=== PATIENT | male | born 1965 | race Caucasian/White ===

== ENCOUNTER 2024-07-06 11:44 | Inpatient (IN) | payer BC, MEDICAID ==
[~2024-07-06] VITALS: Ht 152.4 cm; Wt 82.0 kg
[2024-07-06] MEDS: furosemide 10 MG/1 ML 10ml inj IV ONE (12:12)
[2024-07-06 12:19] VITALS: PULSE 101; RESP 14; O2SAT 97
[2024-07-06 12:25] LABS: BASOPHILS # (AUTO) 0.1 X10'3 (0-0.2); HEMOGLOBIN 11.7 g/dl (14.0-17.9); LYMPHOCYTES # (AUTO) 1.3 X10'3 (1.1-4.8); NEUTROPHILS # (AUTO) 12.3 X10'3 (1.8-7.7)
[2024-07-06 12:27] LABS: BASOPHILS % (AUTO) 0.3 % (0-1); EOSINOPHILS % (AUTO) 0.2 % (0-6); HEMATOCRIT 40.4 % (42.0-52.0); LYMPHOCYTES % (AUTO) 8.7 % (21-51); MEAN CORPUSCULAR HEMOGLOBIN 22.3 PG (27.0-31.0); MEAN CORPUSCULAR HGB CONC 29.1 g/dL (33.0-36.5); MEAN CORPUSCULAR VOLUME 76.7 FL (78-98); MEAN PLATELET VOLUME 8.6 FL (7.4-10.4); MONOCYTES # (AUTO) 1.7 X10'3 (0-0.9); MONOCYTES % (AUTO) 10.8 % (2-12); PLATELET COUNT 444 X10'3 (140-440); RED BLOOD COUNT 5.27 X10'6 (4.70-6.10); RED CELL DISTRIBUTION WIDTH 22.7 % (11.5-14.5); WHITE BLOOD COUNT 15.4 X10'3 (4.5-11.0)
[2024-07-06 12:40] LABS: ALANINE AMINOTRANSFERASE 468 U/L (12-78); ALBUMIN 2.9 G/DL (3.4-5.0); ALKALINE PHOSPHATASE 158 IU/L (46-116); ANION GAP 14 (8-16); ASPARTATE AMINO TRANSFERASE 648 U/L (10-37); BILIRUBIN,TOTAL 5.4 MG/DL (0.1-1.0); BLOOD UREA NITROGEN 48 MG/DL (7-18); BUN/CREATININE RATIO 17.5 (10.0-20.0); CALCIUM 8.3 MG/DL (8.5-10.1); CHLORIDE 98 MMOL/L (99-107); CREATININE 2.75 MG/DL (0.60-1.10); GLUCOSE 122 MG/DL (70-104); SODIUM 140 MMOL/L (135-145); TOTAL CARBON DIOXIDE 28.2 MMOL/L (24-32); eCRCL 29 ML/MIN; eGFR 24 ML/MIN
[2024-07-06 12:50] LABS: BILIRUBIN,DIRECT 3.8 MG/DL (0-0.3); PRO BRAIN NATRIURETIC PEPTIDE 5670 PG/ML (0-125); THYROID STIMULATING HORMONE 3.26 ulU/ml (0.34-4.50)
[2024-07-06 12:51] LABS: ALBUMIN/GLOBULIN RATIO 0.6 (1.1-1.5); TOTAL PROTEIN 7.9 G/DL (6.4-8.2)
[2024-07-06 12:53] LABS: ANISOCYTOSIS 3+; HYPOCHROMASIA 1+; MICROCYTOSIS 1+; NUCLEATED RED BLOOD CELLS 1 /100WBC (0-0); PLATELET ESTIMATE INCREASED; ROULEAUX 1+; TOTAL CELLS COUNTED 100
[2024-07-06 12:54] LABS: BURR CELLS 1+; ELLIPTOCYTES FEW; POLYCHROMASIA 1+; TARGET CELLS 1+
[2024-07-06] MEDS: LIDOcaine 1% W/epiNEPHrine 1:100,000 20ml vial SQ ONE (13:05)
[2024-07-06 13:26] LABS: INR 1.7 INR; PROTHROMBIN TIME 17.2 SECONDS (9.0-12.0)
[2024-07-06] MEDS: CefTRIAXone 2gm/D5W 50ml BAG 50 ML IV ONE (14:03)
[2024-07-06 14:36] LABS: BFSOURCE OTHER
[2024-07-06] MEDS: azithromycin/NS 500mg/250ml 250 ML IV SCH (14:37)
[2024-07-06 14:59] LABS: AMYLASE,BODY FLUID 12 U/L; GLUCOSE,BODY FLUID 141 MG/DL; LDH,BODY FLUID 144 U/L; TOTAL PROTEIN,BODY FLUID 2.7 G/DL
[2024-07-06 15:14] LABS: LYMPHOCYTES,BODY FLUID 15 %; MONOCYTES,BODY FLUID 19 %; NEUTROPHILS,BODY FLUID 66 %
[2024-07-06 15:15] LABS: BF MESOTHELIAL CELLS OCCASIONAL; BF RBC COUNT 432 /CU MM; BF WBC COUNT 390 /CU MM (0-1000); BFAPPEAR HAZY; BFCOLOR YELLOW; BFSOURCE OTHER; BFVOLUME 8 ML
[2024-07-06 15:35] VITALS: PULSE 97; RESP 21; O2SAT 94
[2024-07-06] MEDS ORDERED: magnesium Cl slow-release 64mg tablet PO PRN (16:05)
[2024-07-06] MEDS ORDERED: mag hydrox/Alum hydrox/simeth 30ml oral suspension PO PRN (16:05)
[2024-07-06] MEDS ORDERED: potassium Cl 20 mEq SR tablet PO PRN ×2 (16:05)
[2024-07-06] MEDS ORDERED: magnesium hydroxide 30ml (MOM) UD suspension PO PRN (16:05)
[2024-07-06] MEDS ORDERED: [UNRECOGNIZED DRUG - REMARK] (16:29)
[2024-07-06] MEDS: hyDRALAzine 10mg tablet PO SCH (17:19)
[2024-07-06] MEDS: losartan 50mg tablet PO SCH (17:23)
[2024-07-06] MEDS ORDERED: hyDRALAzine 10mg tablet PO PRN (17:50)
[2024-07-06 19:21] VITALS: PULSE 97; RESP 30; O2SAT 89
[2024-07-06] MEDS: ipratropium/albuterol 3ml nebule NEB SCH (19:30)
[2024-07-06 19:32] VITALS: PULSE 94; RESP 20; O2SAT 88
[2024-07-06 19:39] VITALS: PULSE 96; RESP 19
[2024-07-06] MEDS: heparin, porcine 5000 units/ml vial SQ SCH (20:00)
[2024-07-06] MEDS ORDERED: FURO20TA4 PO (20:02)
[2024-07-06] MEDS ORDERED: LOSA100T58 PO (20:03)
[2024-07-06] MEDS: methylPREDNISolone sod succ 125mg/2ml vial IV SCH (20:51)
[2024-07-06] MEDS: furosemide 40mg/4ml inj IV SCH (20:52)
[2024-07-06] MEDS: acetaminophen 325mg tablet PO PRN (20:53)
[2024-07-06 22:51] VITALS: BP 146/83; RESP 20; TEMP 97.3; O2SAT 82
[2024-07-06 23:24] LABS: ABG BASE EXCESS 2.8 mmol/L (-2.0-3.0); ABG HCO3 27.7 mmol/L (21.0-28.0); ABG PCO2 (T) 42.4 mmHg (35.0-48.0); ABG PO2 (T) 48.6 mmHg (83.0-108.0); ALLEN'S TEST POSITIVE; FCOHb 0.7 % (0.5-1.5); FHHb 17.8 % (0.0-5.0); FLOW 40 L/min; FMetHb 0.3 % (0.0-1.5); FO2Hb 81.2 % (94.0-98.0); MODE HIGH FLOW; PATIENT TEMPERATURE 36.3; TOTAL HEMOGLOBIN 12.2 G/dl (13.5-17.5)
[2024-07-06] MEDS: furosemide 40mg/4ml inj IV ONE (23:29)
[2024-07-06] MEDS ORDERED: POTASSIUM CHLORIDE 20 MEQ/15 ML oral solution PO PRN (23:30)
[2024-07-06] MEDS: POTASSIUM CHLORIDE 20 MEQ/15 ML oral solution PO PRN (23:48)
[2024-07-07] VITALS (47 sets, daily range): BP systolic 96–137; BP diastolic 47–73; PULSE 71–114; RESP 12–25; O2SAT 80–100
[2024-07-07 01:26] LABS: ABG BASE EXCESS 3.8 mmol/L (-2.0-3.0); ABG HCO3 29.8 mmol/L (21.0-28.0); ABG OXYGEN SATURATION 86.9 % (94.0-98.0); ABG PCO2 (T) 48.2 mmHg (35.0-48.0); ABG PH (T) 7.403 (7.350-7.450); ALLEN'S TEST Modified; FCOHb 0.3 % (0.5-1.5); FMetHb 0.3 % (0.0-1.5); FO2Hb 86.4 % (94.0-98.0); MODE MASK - BIPAP; PATIENT TEMPERATURE 35.6; RESPIRATORY RATE 8 b/min; TOTAL HEMOGLOBIN 12.3 G/dl (13.5-17.5)
[2024-07-07] MEDS ORDERED: magnesium hydroxide 30ml (MOM) UD suspension PO PRN (02:35)
[2024-07-07] MEDS: propofol 1000mg/100ml bottle 100 ML IV ONE (02:55)
[2024-07-07] MEDS: albumin (human) 25% 100 ML IV solution IV ONE (03:00)
[2024-07-07] MEDS: propofol 1000mg/100ml bottle 100 ML IV SCH ×3 (03:00→18:50)
[2024-07-07] MEDS: albumin (human) 25% 100ml IV 100 ML in normal saline 500ml IV soln 400 ML IV ONE (04:29)
[2024-07-07] MEDS: albumin (Human) 5% 250ml 250 ML IV ONE ×2 (05:09→06:06)
[2024-07-07 05:22] LABS: ABG BASE EXCESS 4.1 mmol/L (-2.0-3.0); ABG HCO3 28.4 mmol/L (21.0-28.0); ABG OXYGEN SATURATION 89.4 % (94.0-98.0); ABG PCO2 (T) 40.7 mmHg (35.0-48.0); ABG PO2 (T) 58.2 mmHg (83.0-108.0); ALLEN'S TEST Modified; FCOHb 0.7 % (0.5-1.5); FHHb 10.5 % (0.0-5.0); FMetHb 0.3 % (0.0-1.5); FO2Hb 88.5 % (94.0-98.0); MODE CMV PRVC IT 0.8; PATIENT TEMPERATURE 36.6; PEEP 14 cm H2O; RESPIRATORY RATE 20 b/min; TIDAL VOLUME 450 mL; TOTAL HEMOGLOBIN 11.5 G/dl (13.5-17.5)
[2024-07-07 06:09] LABS: BASOPHILS % (AUTO) 0.1 % (0-1); EOSINOPHILS % (AUTO) 0 % (0-6); LYMPHOCYTES # (AUTO) 0.7 X10'3 (1.1-4.8); MEAN CORPUSCULAR HGB CONC 28.5 g/dL (33.0-36.5); MONOCYTES # (AUTO) 0.4 X10'3 (0-0.9); NEUTROPHILS # (AUTO) 10.9 X10'3 (1.8-7.7)
[2024-07-07 06:10] LABS: HEMATOCRIT 35.2 % (42.0-52.0); LYMPHOCYTES % (AUTO) 5.9 % (21-51); MEAN CORPUSCULAR HEMOGLOBIN 21.9 PG (27.0-31.0); MEAN CORPUSCULAR VOLUME 76.6 FL (78-98); MEAN PLATELET VOLUME 8.8 FL (7.4-10.4); MONOCYTES % (AUTO) 3.2 % (2-12); NEUTROPHILS % (AUTO) 90.8 % (42-75); PLATELET COUNT 317 X10'3 (140-440); RED BLOOD COUNT 4.59 X10'6 (4.70-6.10); RED CELL DISTRIBUTION WIDTH 23.1 % (11.5-14.5)
[2024-07-07 06:19] LABS: D-DIMER 3.29 MG/L FEU (0-0.50); INR 1.6 INR; PROTHROMBIN TIME 16.1 SECONDS (9.0-12.0)
[2024-07-07 06:33] LABS: ALANINE AMINOTRANSFERASE 353 U/L (12-78); ALBUMIN 2.3 G/DL (3.4-5.0); ALBUMIN/GLOBULIN RATIO 0.5 (1.1-1.5); ALKALINE PHOSPHATASE 121 IU/L (46-116); ANION GAP 7 (8-16); ASPARTATE AMINO TRANSFERASE 327 U/L (10-37); BILIRUBIN,TOTAL 3.7 MG/DL (0.1-1.0); BLOOD UREA NITROGEN 52 MG/DL (7-18); BUN/CREATININE RATIO 18.6 (10.0-20.0); CALCIUM 7.8 MG/DL (8.5-10.1); CHLORIDE 98 MMOL/L (99-107); GLUCOSE 149 MG/DL (70-104); MAGNESIUM 1.8 MG/DL (1.5-2.4); PHOSPHORUS 4.6 MG/DL (2.3-4.5); POTASSIUM 3.1 MMOL/L (3.5-5.1); SODIUM 138 MMOL/L (135-145); TOTAL CARBON DIOXIDE 32.6 MMOL/L (24-32); TOTAL PROTEIN 6.9 G/DL (6.4-8.2); TRIGLYCERIDES 59 MG/DL (20-135); eCRCL 28 ML/MIN; eGFR 23 ML/MIN
[2024-07-07 06:53] LABS: ANISOCYTOSIS 3+; MICROCYTOSIS 1+; NUCLEATED RED BLOOD CELLS 4 /100WBC (0-0); PLATELET ESTIMATE NORMAL; TOTAL CELLS COUNTED 100
[2024-07-07] MEDS: budesonide 0.5mg/2ml UD nebule IH SCH (07:25)
[2024-07-07] MEDS: piperacillin/tazo 4.5gm/100ml 100 ML IV SCH (07:26)
[2024-07-07] MEDS: VANCOMYCIN/H2O 1.5g/300mL PB 300 ML IV ONE (07:26)
[2024-07-07] MEDS ORDERED: pantoprazole 40mg Tablet.DR PO SCH (07:30)
[2024-07-07] MEDS: potassium Cl 40MEQ/1/2NS 520ml 520 ML IV PRN (07:59)
[2024-07-07] MEDS ORDERED: CefTRIAXone 2gm/D5W 50ml BAG 50 ML IV SCH (08:00)
[2024-07-07] MEDS ORDERED: isosorbide mononitrate 30mg tab.SR.24H PO SCH (08:00)
[2024-07-07] MEDS ORDERED: rocuronium 10mg/ml inj IV ONE (08:00)
[2024-07-07 08:33] LABS: URINE AMPHETAMINE SCREEN POSITIVE (Neg); URINE BARBITUATE SCREEN NEGATIVE (Neg); URINE BENZODIAZEPINES SCREEN NEGATIVE (Neg); URINE CANNABINOID SCREEN NEGATIVE (Neg); URINE COCAINE SCREEN NEGATIVE (Neg); URINE METHADONE SCREEN NEGATIVE (Neg); URINE OPIATE SCREEN NEGATIVE (Neg); URINE PHENCYCLIDINE SCREEN NEGATIVE (Neg)
[2024-07-07] MEDS: spironolactone 25 MG tablet PO SCH (09:50)
[2024-07-07] MEDS: pantoprazole 40 MG vial IV SCH (09:50)
[2024-07-07] MEDS: lactulose 20gm/30ml cup PO SCH (09:50)
[2024-07-07] MEDS: azithromycin 250mg tablet PO SCH (09:51)
[2024-07-07] MEDS: magnesium sulf-water 4G/100mL 100 ML IV PRN (09:52)
[2024-07-07] MEDS: normal saline 1000ml 1,000 ML IV SCH (10:00)
[2024-07-07 10:16] LABS: BILIRUBIN,URINE NEGATIVE (Neg); CLARITY,URINE CLEAR (Clear); COLOR,URINE YELLOW (Yellow); GLUCOSE, URINE NEGATIVE (Neg); KETONES,URINE NEGATIVE (Neg); LEUKOCYTE ESTERASE ,URINE NEGATIVE (Neg); NITRITES, URINE NEGATIVE (Neg); OCCULT BLOOD,URINE NEGATIVE (Neg); PH,URINE 5.5 (4.8-8.0); PROTEIN,URINE NEGATIVE (Neg)
[2024-07-07 10:20] LABS: UA COLLECTION TYPE FOLEY CATH
[2024-07-07] MEDS: fentaNYL/PF 50MCG/1 ML 2ML syringe ONE (11:06)
[2024-07-07] MEDS: fentaNYL/PF 50MCG/1 ML 2ML syringe IV ONE ×2 (11:10→11:35)
[2024-07-07] MEDS: FENTANYL-0.9 % NACL/PF 100 ML IV SCH ×2 (12:18→18:50)
[2024-07-07 17:32] LABS: ABG BASE EXCESS 1.9 mmol/L (-2.0-3.0); ABG HCO3 27.7 mmol/L (21.0-28.0); ABG OXYGEN SATURATION 85.3 % (94.0-98.0); ABG PH (T) 7.391 (7.350-7.450); ABG PO2 (T) 52.1 mmHg (83.0-108.0); ALLEN'S TEST POSITIVE; FCOHb 0.6 % (0.5-1.5); FHHb 14.6 % (0.0-5.0); FMetHb 0.3 % (0.0-1.5); FO2Hb 84.5 % (94.0-98.0); MODE VENT - AC; PATIENT TEMPERATURE 35.8; PEEP 14 cm H2O; RESPIRATORY RATE 20 b/min; TIDAL VOLUME 450 mL
[2024-07-07 18:06] LABS: MAGNESIUM 2.6 MG/DL (1.5-2.4)
[2024-07-07 18:08] LABS: POTASSIUM 2.6 MMOL/L (3.5-5.1)
[2024-07-07] MEDS ORDERED: NORepinephrine 32mg/250mL bag 250 ML IV SCH (18:20)
[2024-07-07] MEDS: NORepinephrine 8mg/ 250ml NS 250 ML IV SCH (18:35)
[2024-07-07] MEDS: furosemide 10 MG/1 ML 10ml inj IV ONE (18:51)
[2024-07-07] MEDS: potassium Cl 40MEQ/270ML bag 270 ML IV PRN (18:53)
[2024-07-07] MEDS: furosemide inj 1,000 MG in normal saline 250ml IV soln 150 ML IV SCH (19:00)
[2024-07-07] MEDS ORDERED: vancomycin/NS 500MG ADD-VANT 100 ML IV ONE (19:00)
[2024-07-07 19:25] LABS: ABG BASE EXCESS 1.6 mmol/L (-2.0-3.0); ABG HCO3 27.9 mmol/L (21.0-28.0); ABG OXYGEN SATURATION 97.8 % (94.0-98.0); ABG PCO2 (T) 50.1 mmHg (35.0-48.0); ABG PH (T) 7.359 (7.350-7.450); ABG PO2 (T) 101.1 mmHg (83.0-108.0); ALLEN'S TEST POSITIVE; FCOHb 0.4 % (0.5-1.5); FHHb 2.2 % (0.0-5.0); FMetHb 0.3 % (0.0-1.5); FO2Hb 97.1 % (94.0-98.0); MODE VENT - APRV; TOTAL HEMOGLOBIN 10.8 G/dl (13.5-17.5)
[2024-07-07] MEDS: VANCOMYCIN 500MG/WATER FOR INJ (PEG) PREMIX 100 ML IV SCH (20:06)
[2024-07-07 22:15] LABS: ALBUMIN 2.7 G/DL (3.4-5.0); ANION GAP 9 (8-16); BLOOD UREA NITROGEN 57 MG/DL (7-18); BUN/CREATININE RATIO 18.4 (10.0-20.0); CALCIUM 7.8 MG/DL (8.5-10.1); CHLORIDE 102 MMOL/L (99-107); CREATININE 3.09 MG/DL (0.60-1.10); GLUCOSE 178 MG/DL (70-104); POTASSIUM 3.2 MMOL/L (3.5-5.1); SODIUM 142 MMOL/L (135-145); TOTAL CARBON DIOXIDE 31.4 MMOL/L (24-32); eCRCL 18 ML/MIN; eGFR 21 ML/MIN
[2024-07-08] VITALS (48 sets, daily range): BP systolic 96–131; BP diastolic 41–89; PULSE 52–98; RESP 6–17; O2SAT 90–100
[2024-07-08 02:49] LABS: ABG BASE EXCESS 0.5 mmol/L (-2.0-3.0); ABG HCO3 28.5 mmol/L (21.0-28.0); ABG OXYGEN SATURATION 99.7 % (94.0-98.0); ABG PCO2 (T) 62.1 mmHg (35.0-48.0); ABG PH (T) 7.276 (7.350-7.450); ABG PO2 (T) 292.4 mmHg (83.0-108.0); ALLEN'S TEST POSITIVE; FCOHb 0.7 % (0.5-1.5); FHHb 0.3 % (0.0-5.0); FMetHb 0.1 % (0.0-1.5); FO2Hb 98.9 % (94.0-98.0); MODE VENT - APRV; PATIENT TEMPERATURE 36.4; TOTAL HEMOGLOBIN 11.1 G/dl (13.5-17.5)
[2024-07-08 03:45] LABS: BASOPHILS % (AUTO) 0.1 % (0-1); EOSINOPHILS % (AUTO) 0 % (0-6); LYMPHOCYTES # (AUTO) 0.5 X10'3 (1.1-4.8); MEAN PLATELET VOLUME 8.8 FL (7.4-10.4); MONOCYTES # (AUTO) 0.5 X10'3 (0-0.9); NEUTROPHILS % (AUTO) 94.2 % (42-75)
[2024-07-08 03:53] LABS: INR 1.3 INR; PROTHROMBIN TIME 13.2 SECONDS (9.0-12.0)
[2024-07-08 03:55] LABS: ALANINE AMINOTRANSFERASE 236 U/L (12-78); ALBUMIN 2.8 G/DL (3.4-5.0); ALBUMIN/GLOBULIN RATIO 0.7 (1.1-1.5); ALKALINE PHOSPHATASE 98 IU/L (46-116); ANION GAP 9 (8-16); ASPARTATE AMINO TRANSFERASE 156 U/L (10-37); BILIRUBIN,TOTAL 2.6 MG/DL (0.1-1.0); BLOOD UREA NITROGEN 60 MG/DL (7-18); BUN/CREATININE RATIO 16.7 (10.0-20.0); CALCIUM 7.7 MG/DL (8.5-10.1); CHLORIDE 100 MMOL/L (99-107); CREATININE 3.59 MG/DL (0.60-1.10); GLUCOSE 210 MG/DL (70-104); MAGNESIUM 2.7 MG/DL (1.5-2.4); PHOSPHORUS 6.7 MG/DL (2.3-4.5); POTASSIUM 3.7 MMOL/L (3.5-5.1); SODIUM 139 MMOL/L (135-145); TOTAL PROTEIN 6.6 G/DL (6.4-8.2); TRIGLYCERIDES 87 MG/DL (20-135); eCRCL 15 ML/MIN; eGFR 17 ML/MIN
[2024-07-08 03:56] LABS: HEMATOCRIT 29.7 % (42.0-52.0); HEMOGLOBIN 9.4 g/dl (14.0-17.9); RED BLOOD COUNT 4.02 X10'6 (4.70-6.10); WHITE BLOOD COUNT 18.4 X10'3 (4.5-11.0)
[2024-07-08 03:57] LABS: LYMPHOCYTES % (AUTO) 2.8 % (21-51); MEAN CORPUSCULAR HEMOGLOBIN 23.4 PG (27.0-31.0); MEAN CORPUSCULAR HGB CONC 31.7 g/dL (33.0-36.5); MEAN CORPUSCULAR VOLUME 73.9 FL (78-98); MONOCYTES % (AUTO) 2.9 % (2-12); NEUTROPHILS # (AUTO) 17.3 X10'3 (1.8-7.7); PLATELET COUNT 333 X10'3 (140-440); RED CELL DISTRIBUTION WIDTH 21.9 % (11.5-14.5)
[2024-07-08 04:52] LABS: ABG BASE EXCESS -0.2 mmol/L (-2.0-3.0); ABG HCO3 23.7 mmol/L (21.0-28.0); ABG OXYGEN SATURATION 99.9 % (94.0-98.0); ABG PCO2 (T) 35.4 mmHg (35.0-48.0); ABG PH (T) 7.443 (7.350-7.450); ABG PO2 (T) 221.8 mmHg (83.0-108.0); ALLEN'S TEST POSITIVE; FCOHb 0.4 % (0.5-1.5); FHHb 0.1 % (0.0-5.0); FMetHb 0.3 % (0.0-1.5); FO2Hb 99.2 % (94.0-98.0); MODE VENT - APRV; PATIENT TEMPERATURE 36.6; TOTAL HEMOGLOBIN 10.6 G/dl (13.5-17.5)
[2024-07-08] MEDS: furosemide inj 1,000 MG in normal saline 250ml IV soln 150 ML IV SCH ×2 (09:23→17:49)
[2024-07-08] MEDS: NORepinephrine 8mg/ 250ml NS 250 ML IV SCH (09:25)
[2024-07-08] MEDS ORDERED: Dextrose 10%-water IV solution 1,000 ML IV SCH (10:20)
[2024-07-08] MEDS ORDERED: dextrose 50%-water 50ml dispensing syringe IV PRN (10:20)
[2024-07-08 12:02] LABS: ALBUMIN 2.6 G/DL (3.4-5.0); ANION GAP 12 (8-16); BLOOD UREA NITROGEN 70 MG/DL (7-18); BUN/CREATININE RATIO 19.2 (10.0-20.0); CALCIUM 7.9 MG/DL (8.5-10.1); CHLORIDE 102 MMOL/L (99-107); CREATININE 3.65 MG/DL (0.60-1.10); GLUCOSE 206 MG/DL (70-104); SODIUM 143 MMOL/L (135-145); TOTAL CARBON DIOXIDE 28.9 MMOL/L (24-32); eCRCL 15 ML/MIN; eGFR 17 ML/MIN
[2024-07-08 12:08] LABS: POTASSIUM 2.8 MMOL/L (3.5-5.1)
[2024-07-08] MEDS: mineral oil/petrolatum ophthal oint EACHEYE SCH (14:43)
[2024-07-08] MEDS: furosemide inj 100 MG in normal saline 100ml IV soln 90 ML IV SCH (14:47)
[2024-07-08] MEDS: insulin regular, human U-100 10ml vial - multi-dose SQ SCH (16:06)
[2024-07-08 16:29] LABS: ALBUMIN 2.7 G/DL (3.4-5.0); ANION GAP 9 (8-16); BLOOD UREA NITROGEN 76 MG/DL (7-18); BUN/CREATININE RATIO 19.9 (10.0-20.0); CALCIUM 7.6 MG/DL (8.5-10.1); CHLORIDE 102 MMOL/L (99-107); CREATININE 3.81 MG/DL (0.60-1.10); GLUCOSE 186 MG/DL (70-104); POTASSIUM 3.6 MMOL/L (3.5-5.1); SODIUM 143 MMOL/L (135-145); TOTAL CARBON DIOXIDE 32.1 MMOL/L (24-32); eCRCL 15 ML/MIN; eGFR 16 ML/MIN
[2024-07-08] MEDS ORDERED: furosemide inj 100 MG in normal saline 100ml IV soln 90 ML IV SCH (19:00)
[2024-07-08] MEDS ORDERED: VANCOMYCIN LEVEL IV ONE (19:30)
[2024-07-08 22:33] LABS: ALBUMIN 2.6 G/DL (3.4-5.0); ANION GAP 10 (8-16); BLOOD UREA NITROGEN 79 MG/DL (7-18); BUN/CREATININE RATIO 20.6 (10.0-20.0); CALCIUM 7.8 MG/DL (8.5-10.1); CHLORIDE 102 MMOL/L (99-107); CREATININE 3.84 MG/DL (0.60-1.10); GLUCOSE 184 MG/DL (70-104); POTASSIUM 3.2 MMOL/L (3.5-5.1); SODIUM 143 MMOL/L (135-145); TOTAL CARBON DIOXIDE 31.3 MMOL/L (24-32); eCRCL 14 ML/MIN; eGFR 16 ML/MIN
[2024-07-09] VITALS (50 sets, daily range): BP systolic 14–140; BP diastolic 47–83; PULSE 73–100; RESP 14–23; TEMP 98.9; O2SAT 93–100
[2024-07-09] MEDS: VANCOMYCIN LEVEL IV SCH (03:00)
[2024-07-09 03:46] LABS: ABG BASE EXCESS 2.6 mmol/L (-2.0-3.0); ABG HCO3 27.5 mmol/L (21.0-28.0); ABG OXYGEN SATURATION 96.2 % (94.0-98.0); ABG PCO2 (T) 42.6 mmHg (35.0-48.0); ABG PH (T) 7.425 (7.350-7.450); ABG PO2 (T) 78.9 mmHg (83.0-108.0); ALLEN'S TEST POSITIVE; FCOHb 0.6 % (0.5-1.5); FHHb 3.8 % (0.0-5.0); FMetHb 0.3 % (0.0-1.5); FO2Hb 95.3 % (94.0-98.0); MODE APRV; PATIENT TEMPERATURE 36.3; TOTAL HEMOGLOBIN 10.3 G/dl (13.5-17.5)
[2024-07-09 04:29] LABS: INR 1.2 INR; PROTHROMBIN TIME 12.7 SECONDS (9.0-12.0)
[2024-07-09 04:33] LABS: MAGNESIUM 2.6 MG/DL (1.5-2.4); PHOSPHORUS 4.6 MG/DL (2.3-4.5); PREALBUMIN 9.2 MG/DL (19-36); VANCOMYCIN,RANDOM 24.8 ug/mL (20.0-30.0)
[2024-07-09 04:34] LABS: BASOPHILS % (AUTO) 0.1 % (0-1); EOSINOPHILS % (AUTO) 0 % (0-6); HEMATOCRIT 29.7 % (42.0-52.0); LYMPHOCYTES # (AUTO) 0.4 X10'3 (1.1-4.8); LYMPHOCYTES % (AUTO) 2.4 % (21-51); MEAN PLATELET VOLUME 8.6 FL (7.4-10.4); RED BLOOD COUNT 3.97 X10'6 (4.70-6.10)
[2024-07-09 04:36] LABS: HEMOGLOBIN 8.9 g/dl (14.0-17.9); MEAN CORPUSCULAR HEMOGLOBIN 22.5 PG (27.0-31.0); MONOCYTES # (AUTO) 0.6 X10'3 (0-0.9); MONOCYTES % (AUTO) 3.6 % (2-12); NEUTROPHILS # (AUTO) 15.8 X10'3 (1.8-7.7); NEUTROPHILS % (AUTO) 93.9 % (42-75); PLATELET COUNT 267 X10'3 (140-440); RED CELL DISTRIBUTION WIDTH 23.1 % (11.5-14.5); WHITE BLOOD COUNT 16.8 X10'3 (4.5-11.0)
[2024-07-09 06:06] LABS: ALANINE AMINOTRANSFERASE 180 U/L (12-78); ALBUMIN 2.4 G/DL (3.4-5.0); ALBUMIN/GLOBULIN RATIO 0.7 (1.1-1.5); ALKALINE PHOSPHATASE 80 IU/L (46-116); ANION GAP 9 (8-16); ASPARTATE AMINO TRANSFERASE 86 U/L (10-37); BILIRUBIN,TOTAL 1.6 MG/DL (0.1-1.0); BLOOD UREA NITROGEN 83 MG/DL (7-18); BUN/CREATININE RATIO 21.2 (10.0-20.0); CALCIUM 7.7 MG/DL (8.5-10.1); CHLORIDE 104 MMOL/L (99-107); CREATININE 3.92 MG/DL (0.60-1.10); GLUCOSE 179 MG/DL (70-104); POTASSIUM 3.5 MMOL/L (3.5-5.1); SODIUM 144 MMOL/L (135-145); TOTAL CARBON DIOXIDE 31.2 MMOL/L (24-32); eCRCL 14 ML/MIN; eGFR 16 ML/MIN
[2024-07-09] MEDS ORDERED: rocuronium 10mg/ml inj IV ONE (08:00)
[2024-07-09] MEDS ORDERED: VANCOMYCIN 1GM 200ML H20 (PEG) 200 ML IV PRN (08:00)
[2024-07-09 10:13] LABS: ALBUMIN 2.4 G/DL (3.4-5.0); ANION GAP 13 (8-16); BLOOD UREA NITROGEN 87 MG/DL (7-18); CHLORIDE 105 MMOL/L (99-107); CREATININE 4.15 MG/DL (0.60-1.10); GLUCOSE 202 MG/DL (70-104); POTASSIUM 3.5 MMOL/L (3.5-5.1); SODIUM 146 MMOL/L (135-145); TOTAL CARBON DIOXIDE 28.3 MMOL/L (24-32); eCRCL 13 ML/MIN; eGFR 15 ML/MIN
[2024-07-09] MEDS ORDERED: BICARB DIALYSIS 4K/3 Ca2+sol 5,000 ML HE SCH (11:20)
[2024-07-09] MEDS ORDERED: calcium chloride inj. 1,000 MG in normal saline 100ml IV soln 100 ML IV PRN ×2 (11:20→16:50)
[2024-07-09] MEDS ORDERED: magnesium sulf-water 4G/100mL 100 ML IV PRN (11:20)
[2024-07-09] MEDS ORDERED: sodium phosphate inj. 30 MMOL in dextrose 5%-water 250 ML IV PRN (11:20)
[2024-07-09] MEDS: Duosol 4K/3 Ca (w/calcium) 5,000 ML HE SCH (13:31)
[2024-07-09 15:42] LABS: ALBUMIN 2.5 G/DL (3.4-5.0); ANION GAP 9 (8-16); BLOOD UREA NITROGEN 85 MG/DL (7-18); BUN/CREATININE RATIO 21.6 (10.0-20.0); CHLORIDE 104 MMOL/L (99-107); CREATININE 3.94 MG/DL (0.60-1.10); GLUCOSE 197 MG/DL (70-104); MAGNESIUM 2.6 MG/DL (1.5-2.4); PHOSPHORUS 5.3 MG/DL (2.3-4.5); POTASSIUM 3.9 MMOL/L (3.5-5.1); SODIUM 143 MMOL/L (135-145); TOTAL CARBON DIOXIDE 30.1 MMOL/L (24-32); eCRCL 14 ML/MIN; eGFR 16 ML/MIN
[2024-07-09 15:46] LABS: BASOPHILS % (AUTO) 0.2 % (0-1); EOSINOPHILS % (AUTO) 0 % (0-6); LYMPHOCYTES # (AUTO) 0.5 X10'3 (1.1-4.8); NEUTROPHILS # (AUTO) 15.7 X10'3 (1.8-7.7); WHITE BLOOD COUNT 16.6 X10'3 (4.5-11.0)
[2024-07-09 15:47] LABS: MEAN PLATELET VOLUME 8.5 FL (7.4-10.4); MONOCYTES # (AUTO) 0.5 X10'3 (0-0.9); MONOCYTES % (AUTO) 2.7 % (2-12); NEUTROPHILS % (AUTO) 94.1 % (42-75); PLATELET COUNT 270 X10'3 (140-440)
[2024-07-09 16:07] LABS: HEMATOCRIT 29.7 % (42.0-52.0); MEAN CORPUSCULAR HGB CONC 30.2 g/dL (33.0-36.5); MEAN CORPUSCULAR VOLUME 72.9 FL (78-98); RED BLOOD COUNT 4.07 X10'6 (4.70-6.10); RED CELL DISTRIBUTION WIDTH 22.1 % (11.5-14.5)
[2024-07-09 16:11] LABS: BASOPHILS # (AUTO) 0.1 X10'3 (0-0.2); BASOPHILS % (AUTO) 0.3 % (0-1); EOSINOPHILS % (AUTO) 0 % (0-6); MEAN CORPUSCULAR HGB CONC 29.8 g/dL (33.0-36.5); NEUTROPHILS # (AUTO) 15.9 X10'3 (1.8-7.7); WHITE BLOOD COUNT 16.6 X10'3 (4.5-11.0)
[2024-07-09 16:13] LABS: HEMATOCRIT 31.6 % (42.0-52.0); HEMOGLOBIN 9.4 g/dl (14.0-17.9); LYMPHOCYTES # (AUTO) 0.3 X10'3 (1.1-4.8); LYMPHOCYTES % (AUTO) 1.9 % (21-51); MEAN CORPUSCULAR HEMOGLOBIN 22.5 PG (27.0-31.0); MEAN CORPUSCULAR VOLUME 75.4 FL (78-98); MEAN PLATELET VOLUME 8.7 FL (7.4-10.4); MONOCYTES # (AUTO) 0.4 X10'3 (0-0.9); MONOCYTES % (AUTO) 2.1 % (2-12); NEUTROPHILS % (AUTO) 95.7 % (42-75); PLATELET COUNT 280 X10'3 (140-440); RED BLOOD COUNT 4.19 X10'6 (4.70-6.10); RED CELL DISTRIBUTION WIDTH 23.1 % (11.5-14.5)
[2024-07-09 16:26] LABS: ALBUMIN 2.5 G/DL (3.4-5.0); ANION GAP 10 (8-16); BLOOD UREA NITROGEN 82 MG/DL (7-18); BUN/CREATININE RATIO 21.5 (10.0-20.0); CALCIUM 8.1 MG/DL (8.5-10.1); CHLORIDE 105 MMOL/L (99-107); CREATININE 3.81 MG/DL (0.60-1.10); GLUCOSE 241 MG/DL (70-104); MAGNESIUM 2.7 MG/DL (1.5-2.4); PHOSPHORUS 5.1 MG/DL (2.3-4.5); POTASSIUM 3.8 MMOL/L (3.5-5.1); SODIUM 144 MMOL/L (135-145); TOTAL CARBON DIOXIDE 29.4 MMOL/L (24-32); eCRCL 15 ML/MIN; eGFR 16 ML/MIN
[2024-07-09] MEDS ORDERED: calcium chloride inj. 10,000 MG in normal saline 500ml IV soln 400 ML IV PRN ×2 (16:50→17:30)
[2024-07-09 17:09] LABS: BASOPHILS % (AUTO) 0.1 % (0-1); EOSINOPHILS % (AUTO) 0 % (0-6); HEMOGLOBIN 9.4 g/dl (14.0-17.9); LYMPHOCYTES # (AUTO) 0.4 X10'3 (1.1-4.8); MEAN CORPUSCULAR HGB CONC 29.5 g/dL (33.0-36.5); MEAN PLATELET VOLUME 8.5 FL (7.4-10.4); MONOCYTES # (AUTO) 0.4 X10'3 (0-0.9)
[2024-07-09 17:11] LABS: HEMATOCRIT 31.8 % (42.0-52.0); LYMPHOCYTES % (AUTO) 2.5 % (21-51); MEAN CORPUSCULAR HEMOGLOBIN 22.4 PG (27.0-31.0); MONOCYTES % (AUTO) 2.8 % (2-12); NEUTROPHILS # (AUTO) 14.8 X10'3 (1.8-7.7); NEUTROPHILS % (AUTO) 94.6 % (42-75); PLATELET COUNT 268 X10'3 (140-440); RED BLOOD COUNT 4.18 X10'6 (4.70-6.10); RED CELL DISTRIBUTION WIDTH 23.2 % (11.5-14.5); WHITE BLOOD COUNT 15.6 X10'3 (4.5-11.0)
[2024-07-09 17:28] LABS: ALBUMIN 2.5 G/DL (3.4-5.0); ANION GAP 9 (8-16); BLOOD UREA NITROGEN 81 MG/DL (7-18); BUN/CREATININE RATIO 21.4 (10.0-20.0); CALCIUM 8.1 MG/DL (8.5-10.1); CHLORIDE 105 MMOL/L (99-107); CREATININE 3.78 MG/DL (0.60-1.10); GLUCOSE 247 MG/DL (70-104); MAGNESIUM 2.6 MG/DL (1.5-2.4); POTASSIUM 3.8 MMOL/L (3.5-5.1); SODIUM 144 MMOL/L (135-145); TOTAL CARBON DIOXIDE 30.1 MMOL/L (24-32); eCRCL 15 ML/MIN; eGFR 16 ML/MIN
[2024-07-09 17:58] LABS: BASOPHILS % (AUTO) 0.3 % (0-1); EOSINOPHILS % (AUTO) 0 % (0-6); HEMOGLOBIN 8.9 g/dl (14.0-17.9); MEAN PLATELET VOLUME 8.3 FL (7.4-10.4); MONOCYTES # (AUTO) 0.5 X10'3 (0-0.9); RED BLOOD COUNT 4.07 X10'6 (4.70-6.10)
[2024-07-09 17:59] LABS: BASOPHILS # (AUTO) 0.1 X10'3 (0-0.2); HEMATOCRIT 30.7 % (42.0-52.0); LYMPHOCYTES # (AUTO) 0.3 X10'3 (1.1-4.8); LYMPHOCYTES % (AUTO) 2.2 % (21-51); MEAN CORPUSCULAR HEMOGLOBIN 21.8 PG (27.0-31.0); MEAN CORPUSCULAR HGB CONC 28.9 g/dL (33.0-36.5); MEAN CORPUSCULAR VOLUME 75.3 FL (78-98); NEUTROPHILS # (AUTO) 14.4 X10'3 (1.8-7.7); NEUTROPHILS % (AUTO) 94.5 % (42-75); PLATELET COUNT 240 X10'3 (140-440); WHITE BLOOD COUNT 15.2 X10'3 (4.5-11.0)
[2024-07-09 18:07] LABS: ANISOCYTOSIS 3+; HYPOCHROMASIA 1+; MICROCYTOSIS 1+; NUCLEATED RED BLOOD CELLS 2 /100WBC (0-0); PLATELET ESTIMATE NORMAL; TOTAL CELLS COUNTED 100
[2024-07-09 18:08] LABS: LARGE PLATELETS FEW; TARGET CELLS FEW
[2024-07-09 18:26] LABS: ALBUMIN 2.4 G/DL (3.4-5.0); ANION GAP 8 (8-16); BLOOD UREA NITROGEN 81 MG/DL (7-18); BUN/CREATININE RATIO 21.8 (10.0-20.0); CALCIUM 7.9 MG/DL (8.5-10.1); CHLORIDE 103 MMOL/L (99-107); CREATININE 3.71 MG/DL (0.60-1.10); GLUCOSE 232 MG/DL (70-104); MAGNESIUM 2.5 MG/DL (1.5-2.4); PHOSPHORUS 4.8 MG/DL (2.3-4.5); POTASSIUM 3.6 MMOL/L (3.5-5.1); SODIUM 141 MMOL/L (135-145); eCRCL 15 ML/MIN; eGFR 17 ML/MIN
[2024-07-09] MEDS: potassium Cl 40MEQ/270ML bag 270 ML IV PRN (19:10)
[2024-07-09 19:11] LABS: HEMOGLOBIN A1C 7.3 % (4.5-6.2)
[2024-07-10] VITALS (49 sets, daily range): BP systolic 89–136; BP diastolic 49–74; PULSE 67–112; RESP 14–22; TEMP 97.8; O2SAT 93–100
[2024-07-10 00:56] LABS: ALANINE AMINOTRANSFERASE 161 U/L (12-78); ALBUMIN 2.5 G/DL (3.4-5.0); ALBUMIN/GLOBULIN RATIO 0.7 (1.1-1.5); ALKALINE PHOSPHATASE 81 IU/L (46-116); ANION GAP 9 (8-16); ASPARTATE AMINO TRANSFERASE 57 U/L (10-37); BILIRUBIN,TOTAL 1.4 MG/DL (0.1-1.0); BLOOD UREA NITROGEN 68 MG/DL (7-18); BUN/CREATININE RATIO 22.5 (10.0-20.0); CALCIUM 8.2 MG/DL (8.5-10.1); CHLORIDE 106 MMOL/L (99-107); CREATININE 3.02 MG/DL (0.60-1.10); GLUCOSE 202 MG/DL (70-104); MAGNESIUM 2.4 MG/DL (1.5-2.4); PHOSPHORUS 3.8 MG/DL (2.3-4.5); POTASSIUM 4.1 MMOL/L (3.5-5.1); SODIUM 143 MMOL/L (135-145); TOTAL CARBON DIOXIDE 28.3 MMOL/L (24-32); TOTAL PROTEIN 6.3 G/DL (6.4-8.2); TRIGLYCERIDES 94 MG/DL (20-135); VANCOMYCIN,RANDOM 15.4 ug/mL (20.0-30.0); eCRCL 18 ML/MIN; eGFR 21 ML/MIN
[2024-07-10 00:57] LABS: INR 1.2 INR; PROTHROMBIN TIME 12.1 SECONDS (9.0-12.0)
[2024-07-10 01:01] LABS: BASOPHILS % (AUTO) 0.1 % (0-1); EOSINOPHILS % (AUTO) 0 % (0-6); HEMOGLOBIN 8.9 g/dl (14.0-17.9); LYMPHOCYTES # (AUTO) 0.4 X10'3 (1.1-4.8); LYMPHOCYTES % (AUTO) 2.9 % (21-51); MEAN PLATELET VOLUME 8.2 FL (7.4-10.4); MONOCYTES # (AUTO) 0.3 X10'3 (0-0.9); MONOCYTES % (AUTO) 2.7 % (2-12); NEUTROPHILS # (AUTO) 12.3 X10'3 (1.8-7.7); NEUTROPHILS % (AUTO) 94.3 % (42-75); PLATELET COUNT 221 X10'3 (140-440)
[2024-07-10 01:20] LABS: HEMATOCRIT 28.6 % (42.0-52.0); MEAN CORPUSCULAR HEMOGLOBIN 22.6 PG (27.0-31.0); MEAN CORPUSCULAR HGB CONC 31.2 g/dL (33.0-36.5); MEAN CORPUSCULAR VOLUME 72.5 FL (78-98); RED BLOOD COUNT 3.95 X10'6 (4.70-6.10); RED CELL DISTRIBUTION WIDTH 22.3 % (11.5-14.5)
[2024-07-10 04:05] LABS: ABG HCO3 25.8 mmol/L (21.0-28.0); ABG OXYGEN SATURATION 98.3 % (94.0-98.0); ABG PCO2 (T) 34.7 mmHg (35.0-48.0); ABG PH (T) 7.483 (7.350-7.450); ABG PO2 (T) 97.6 mmHg (83.0-108.0); ALLEN'S TEST POSITIVE; FCOHb 0.5 % (0.5-1.5); FHHb 1.7 % (0.0-5.0); FMetHb 0.3 % (0.0-1.5); FO2Hb 97.5 % (94.0-98.0); MODE VENT - APRV; PATIENT TEMPERATURE 35.6
[2024-07-10 05:41] LABS: EOSINOPHILS % (AUTO) 0 % (0-6); HEMOGLOBIN 8.9 g/dl (14.0-17.9); LYMPHOCYTES # (AUTO) 0.4 X10'3 (1.1-4.8); MEAN CORPUSCULAR HEMOGLOBIN 22.8 PG (27.0-31.0); RED BLOOD COUNT 3.89 X10'6 (4.70-6.10)
[2024-07-10 05:42] LABS: BASOPHILS % (AUTO) 0.4 % (0-1); HEMATOCRIT 29.4 % (42.0-52.0); LYMPHOCYTES % (AUTO) 3.5 % (21-51); MEAN CORPUSCULAR HGB CONC 30.2 g/dL (33.0-36.5); MEAN CORPUSCULAR VOLUME 75.5 FL (78-98); MONOCYTES # (AUTO) 0.2 X10'3 (0-0.9); MONOCYTES % (AUTO) 2.3 % (2-12); NEUTROPHILS # (AUTO) 9.7 X10'3 (1.8-7.7); NEUTROPHILS % (AUTO) 93.8 % (42-75); PLATELET COUNT 211 X10'3 (140-440); RED CELL DISTRIBUTION WIDTH 23.2 % (11.5-14.5); WHITE BLOOD COUNT 10.3 X10'3 (4.5-11.0)
[2024-07-10 05:54] LABS: ALBUMIN 2.3 G/DL (3.4-5.0); ANION GAP 4 (8-16); BLOOD UREA NITROGEN 60 MG/DL (7-18); BUN/CREATININE RATIO 22.6 (10.0-20.0); CHLORIDE 105 MMOL/L (99-107); CREATININE 2.65 MG/DL (0.60-1.10); GLUCOSE 185 MG/DL (70-104); MAGNESIUM 2.1 MG/DL (1.5-2.4); PHOSPHORUS 3.6 MG/DL (2.3-4.5); POTASSIUM 4.1 MMOL/L (3.5-5.1); SODIUM 140 MMOL/L (135-145); TOTAL CARBON DIOXIDE 30.6 MMOL/L (24-32); eCRCL 21 ML/MIN; eGFR 25 ML/MIN
[2024-07-10 08:17] LABS: ALPHA-1-ANTITRYPSIN, SERUM 209 mg/dL (101-187)
[2024-07-10 08:24] LABS: OSMOLALITY 321 MOSM/K (280-300)
[2024-07-10 09:37] LABS: HBSAG SCREEN Negative (Negative); HEPATITIS C VIRUS ANTIBODY Non Reactive (Non Reactive)
[2024-07-10] MEDS ORDERED: piperacillin/tazo 4.5gm/100ml 100 ML IV SCH (10:39)
[2024-07-10 12:08] LABS: BASOPHILS % (AUTO) 0.2 % (0-1); HEMATOCRIT 29.6 % (42.0-52.0); LYMPHOCYTES % (AUTO) 3.6 % (21-51); NEUTROPHILS # (AUTO) 11.5 X10'3 (1.8-7.7); RED BLOOD COUNT 3.97 X10'6 (4.70-6.10)
[2024-07-10 12:10] LABS: EOSINOPHILS % (AUTO) 0 % (0-6); HEMOGLOBIN 8.9 g/dl (14.0-17.9); LYMPHOCYTES # (AUTO) 0.5 X10'3 (1.1-4.8); MEAN CORPUSCULAR HEMOGLOBIN 22.4 PG (27.0-31.0); MEAN CORPUSCULAR HGB CONC 30.1 g/dL (33.0-36.5); MEAN CORPUSCULAR VOLUME 74.6 FL (78-98); MEAN PLATELET VOLUME 8.2 FL (7.4-10.4); MONOCYTES # (AUTO) 0.5 X10'3 (0-0.9); MONOCYTES % (AUTO) 4.1 % (2-12); NEUTROPHILS % (AUTO) 92.1 % (42-75); PLATELET COUNT 245 X10'3 (140-440); RED CELL DISTRIBUTION WIDTH 22.7 % (11.5-14.5); WHITE BLOOD COUNT 12.4 X10'3 (4.5-11.0)
[2024-07-10 12:23] LABS: ALBUMIN 2.5 G/DL (3.4-5.0); ANION GAP 7 (8-16); BLOOD UREA NITROGEN 54 MG/DL (7-18); BUN/CREATININE RATIO 22.1 (10.0-20.0); CALCIUM 8.4 MG/DL (8.5-10.1); CHLORIDE 106 MMOL/L (99-107); CREATININE 2.44 MG/DL (0.60-1.10); GLUCOSE 187 MG/DL (70-104); MAGNESIUM 2.2 MG/DL (1.5-2.4); PHOSPHORUS 3.3 MG/DL (2.3-4.5); POTASSIUM 4.4 MMOL/L (3.5-5.1); SODIUM 141 MMOL/L (135-145); eCRCL 23 ML/MIN; eGFR 27 ML/MIN
[2024-07-10 13:22] LABS: ANTI-CENTROMERE B ANTIBODIES <0.2 AI (0.0-0.9); ANTINUCLEAR ANTIBODIES Negative (Negative)
[2024-07-10 14:52] LABS: ANISOCYTOSIS 3+; MICROCYTOSIS 1+; NUCLEATED RED BLOOD CELLS 4 /100WBC (0-0); PLATELET ESTIMATE NORMAL; TOTAL CELLS COUNTED 100
[2024-07-10 14:53] LABS: LARGE PLATELETS FEW
[2024-07-10 14:54] LABS: HYPOCHROMASIA 2+
[2024-07-10 17:25] LABS: LYMPHOCYTES # (AUTO) 0.4 X10'3 (1.1-4.8); MEAN CORPUSCULAR HGB CONC 30.2 g/dL (33.0-36.5); MEAN PLATELET VOLUME 7.9 FL (7.4-10.4); WHITE BLOOD COUNT 9.9 X10'3 (4.5-11.0)
[2024-07-10 17:26] LABS: BASOPHILS % (AUTO) 0.1 % (0-1); EOSINOPHILS % (AUTO) 0 % (0-6); HEMATOCRIT 29.9 % (42.0-52.0); LYMPHOCYTES % (AUTO) 3.7 % (21-51); MEAN CORPUSCULAR HEMOGLOBIN 22.6 PG (27.0-31.0); MEAN CORPUSCULAR VOLUME 74.7 FL (78-98); MONOCYTES # (AUTO) 0.4 X10'3 (0-0.9); MONOCYTES % (AUTO) 4.2 % (2-12); NEUTROPHILS # (AUTO) 9.1 X10'3 (1.8-7.7); PLATELET COUNT 209 X10'3 (140-440); RED CELL DISTRIBUTION WIDTH 23.1 % (11.5-14.5)
[2024-07-10 17:36] LABS: ALBUMIN 2.5 G/DL (3.4-5.0); ANION GAP 3 (8-16); BLOOD UREA NITROGEN 50 MG/DL (7-18); BUN/CREATININE RATIO 21.4 (10.0-20.0); CALCIUM 8.2 MG/DL (8.5-10.1); CHLORIDE 103 MMOL/L (99-107); CREATININE 2.34 MG/DL (0.60-1.10); GLUCOSE 174 MG/DL (70-104); MAGNESIUM 2.1 MG/DL (1.5-2.4); PHOSPHORUS 3.2 MG/DL (2.3-4.5); POTASSIUM 4.4 MMOL/L (3.5-5.1); SODIUM 138 MMOL/L (135-145); TOTAL CARBON DIOXIDE 31.6 MMOL/L (24-32); eCRCL 24 ML/MIN; eGFR 29 ML/MIN
[2024-07-11] VITALS (50 sets, daily range): BP systolic 86–128; BP diastolic 43–77; PULSE 67–104; RESP 14–29; TEMP 97.1; O2SAT 92–100
[2024-07-11 00:43] LABS: EOSINOPHILS % (AUTO) 0 % (0-6); MEAN CORPUSCULAR HEMOGLOBIN 22.3 PG (27.0-31.0); MONOCYTES # (AUTO) 0.4 X10'3 (0-0.9)
[2024-07-11 00:45] LABS: BASOPHILS % (AUTO) 0.5 % (0-1); LYMPHOCYTES # (AUTO) 0.5 X10'3 (1.1-4.8); LYMPHOCYTES % (AUTO) 4.6 % (21-51); MEAN CORPUSCULAR VOLUME 74.3 FL (78-98); MONOCYTES % (AUTO) 3.6 % (2-12); NEUTROPHILS % (AUTO) 91.3 % (42-75); PLATELET COUNT 198 X10'3 (140-440); RED BLOOD COUNT 4.03 X10'6 (4.70-6.10); WHITE BLOOD COUNT 9.8 X10'3 (4.5-11.0)
[2024-07-11 01:00] LABS: ALANINE AMINOTRANSFERASE 136 U/L (12-78); ALBUMIN 2.6 G/DL (3.4-5.0); ALBUMIN/GLOBULIN RATIO 0.7 (1.1-1.5); ALKALINE PHOSPHATASE 87 IU/L (46-116); ANION GAP 5 (8-16); ASPARTATE AMINO TRANSFERASE 47 U/L (10-37); BILIRUBIN,TOTAL 1.4 MG/DL (0.1-1.0); BLOOD UREA NITROGEN 46 MG/DL (7-18); BUN/CREATININE RATIO 21.5 (10.0-20.0); CALCIUM 8.4 MG/DL (8.5-10.1); CHLORIDE 102 MMOL/L (99-107); CREATININE 2.14 MG/DL (0.60-1.10); GLUCOSE 166 MG/DL (70-104); POTASSIUM 4.5 MMOL/L (3.5-5.1); SODIUM 137 MMOL/L (135-145); TOTAL CARBON DIOXIDE 30.1 MMOL/L (24-32); TOTAL PROTEIN 6.5 G/DL (6.4-8.2); eCRCL 26 ML/MIN; eGFR 32 ML/MIN
[2024-07-11 01:02] LABS: INR 1.2 INR
[2024-07-11 01:06] LABS: % IRON SATURATION 7 % (11-46); IRON 20 UG/DL (53-167); TOTAL IRON BINDING CAPACITY 270 UG/DL (259-388)
[2024-07-11 01:12] LABS: FERRITIN 24 NG/ML (26-388); PHOSPHORUS 3.4 MG/DL (2.3-4.5)
[2024-07-11 03:55] LABS: ABG BASE EXCESS 1.1 mmol/L (-2.0-3.0); ABG HCO3 24.7 mmol/L (21.0-28.0); ABG OXYGEN SATURATION 97.7 % (94.0-98.0); ABG PCO2 (T) 34.2 mmHg (35.0-48.0); ABG PH (T) 7.474 (7.350-7.450); ABG PO2 (T) 90.6 mmHg (83.0-108.0); ALLEN'S TEST POSITIVE; FCOHb 0.7 % (0.5-1.5); FHHb 2.3 % (0.0-5.0); FMetHb 0.3 % (0.0-1.5); FO2Hb 96.7 % (94.0-98.0); MODE VENT - APRV; PATIENT TEMPERATURE 36.2; TOTAL HEMOGLOBIN 10.3 G/dl (13.5-17.5)
[2024-07-11 05:47] LABS: AFP,SERUM, TUMOR MARKER 6.3 ng/mL (0.0-8.4)
[2024-07-11 05:58] LABS: BASOPHILS % (AUTO) 0 % (0-1); EOSINOPHILS % (AUTO) 0 % (0-6); LYMPHOCYTES # (AUTO) 0.5 X10'3 (1.1-4.8); MONOCYTES # (AUTO) 0.4 X10'3 (0-0.9); RED CELL DISTRIBUTION WIDTH 22.7 % (11.5-14.5)
[2024-07-11 06:03] LABS: HEMATOCRIT 30.2 % (42.0-52.0); HEMOGLOBIN 9.2 g/dl (14.0-17.9); LYMPHOCYTES % (AUTO) 5.2 % (21-51); MEAN CORPUSCULAR HEMOGLOBIN 22.7 PG (27.0-31.0); MEAN CORPUSCULAR HGB CONC 30.5 g/dL (33.0-36.5); MEAN CORPUSCULAR VOLUME 74.4 FL (78-98); NEUTROPHILS # (AUTO) 8.3 X10'3 (1.8-7.7); NEUTROPHILS % (AUTO) 90.8 % (42-75); PLATELET COUNT 203 X10'3 (140-440); RED BLOOD COUNT 4.05 X10'6 (4.70-6.10); WHITE BLOOD COUNT 9.2 X10'3 (4.5-11.0)
[2024-07-11 06:15] LABS: ALBUMIN 2.5 G/DL (3.4-5.0); ANION GAP 5 (8-16); BLOOD UREA NITROGEN 44 MG/DL (7-18); BUN/CREATININE RATIO 22.8 (10.0-20.0); CALCIUM 8.6 MG/DL (8.5-10.1); CHLORIDE 105 MMOL/L (99-107); CREATININE 1.93 MG/DL (0.60-1.10); GLUCOSE 190 MG/DL (70-104); MAGNESIUM 2.1 MG/DL (1.5-2.4); PHOSPHORUS 3.5 MG/DL (2.3-4.5); POTASSIUM 4.6 MMOL/L (3.5-5.1); SODIUM 139 MMOL/L (135-145); TOTAL CARBON DIOXIDE 28.7 MMOL/L (24-32); eCRCL 29 ML/MIN; eGFR 36 ML/MIN
[2024-07-11 10:45] LABS: ANISOCYTOSIS 3+; MICROCYTOSIS 1+; NUCLEATED RED BLOOD CELLS 3 /100WBC (0-0); PLATELET ESTIMATE NORMAL; TOTAL CELLS COUNTED 100
[2024-07-11 10:46] LABS: HYPOCHROMASIA 2+
[2024-07-11] MEDS ORDERED: lactulose 20gm/30ml cup PO SCH (11:58)
[2024-07-11] MEDS ORDERED: acetaminophen 325mg tablet OGT PRN (11:59)
[2024-07-11] MEDS ORDERED: hyDRALAzine 10mg tablet OGT PRN (12:01)
[2024-07-11] MEDS ORDERED: mag hydrox/Alum hydrox/simeth 30ml oral suspension OGT PRN (12:01)
[2024-07-11] MEDS ORDERED: magnesium hydroxide 30ml (MOM) UD suspension OGT PRN (12:02)
[2024-07-11 12:22] LABS: EOSINOPHILS % (AUTO) 0 % (0-6); LYMPHOCYTES # (AUTO) 0.5 X10'3 (1.1-4.8); MONOCYTES # (AUTO) 0.6 X10'3 (0-0.9)
[2024-07-11 12:23] LABS: BASOPHILS % (AUTO) 0.2 % (0-1); HEMOGLOBIN 8.9 g/dl (14.0-17.9); LYMPHOCYTES % (AUTO) 5.7 % (21-51); MEAN CORPUSCULAR HEMOGLOBIN 22.3 PG (27.0-31.0); MEAN PLATELET VOLUME 8.2 FL (7.4-10.4); MONOCYTES % (AUTO) 6.6 % (2-12); NEUTROPHILS # (AUTO) 7.6 X10'3 (1.8-7.7); NEUTROPHILS % (AUTO) 87.5 % (42-75); PLATELET COUNT 187 X10'3 (140-440); RED BLOOD COUNT 4.01 X10'6 (4.70-6.10); RED CELL DISTRIBUTION WIDTH 22.8 % (11.5-14.5); WHITE BLOOD COUNT 8.7 X10'3 (4.5-11.0)
[2024-07-11] MEDS: ascorbic acid 500mg tablet OGT SCH (12:30)
[2024-07-11 12:42] LABS: HEMATOCRIT 28.8 % (42.0-52.0)
[2024-07-11 12:43] LABS: MEAN CORPUSCULAR VOLUME 73.2 FL (78-98)
[2024-07-11] MEDS ORDERED: azithromycin 200mg/5ml oral suspension via UD syringe OGT SCH ×2 (13:06→13:08)
[2024-07-11 13:34] LABS: ALBUMIN 2.6 G/DL (3.4-5.0); ANION GAP 7 (8-16); BLOOD UREA NITROGEN 41 MG/DL (7-18); BUN/CREATININE RATIO 21.2 (10.0-20.0); CALCIUM 8.6 MG/DL (8.5-10.1); CHLORIDE 106 MMOL/L (99-107); CREATININE 1.93 MG/DL (0.60-1.10); GLUCOSE 152 MG/DL (70-104); MAGNESIUM 2.1 MG/DL (1.5-2.4); PHOSPHORUS 3.4 MG/DL (2.3-4.5); POTASSIUM 4.6 MMOL/L (3.5-5.1); SODIUM 141 MMOL/L (135-145); TOTAL CARBON DIOXIDE 27.6 MMOL/L (24-32); eCRCL 29 ML/MIN; eGFR 36 ML/MIN
[2024-07-11] MEDS: ferrous sulfate 300mg/5ml UD oral liquid OGT SCH ×2 (13:49→16:32)
[2024-07-11] MEDS: NORepinephrine 8mg/ 250ml NS 250 ML IV SCH (16:22)
[2024-07-11] MEDS: methylPREDNISolone sod succ/PF 40mg inj. IV SCH (16:32)
[2024-07-11] MEDS: lactulose 20gm/30ml cup OGT SCH (16:33)
[2024-07-11 17:53] LABS: EOSINOPHILS % (AUTO) 0 % (0-6); LYMPHOCYTES # (AUTO) 0.6 X10'3 (1.1-4.8)
[2024-07-11 17:55] LABS: BASOPHILS % (AUTO) 0.1 % (0-1); MONOCYTES # (AUTO) 0.9 X10'3 (0-0.9); NEUTROPHILS # (AUTO) 8.7 X10'3 (1.8-7.7); NEUTROPHILS % (AUTO) 84.9 % (42-75); PLATELET COUNT 192 X10'3 (140-440); WHITE BLOOD COUNT 10.2 X10'3 (4.5-11.0)
[2024-07-11 18:12] LABS: ALBUMIN 2.6 G/DL (3.4-5.0); ANION GAP 4 (8-16); BLOOD UREA NITROGEN 40 MG/DL (7-18); BUN/CREATININE RATIO 20.8 (10.0-20.0); CALCIUM 8.4 MG/DL (8.5-10.1); CHLORIDE 103 MMOL/L (99-107); CREATININE 1.92 MG/DL (0.60-1.10); GLUCOSE 133 MG/DL (70-104); PHOSPHORUS 3.2 MG/DL (2.3-4.5); POTASSIUM 4.6 MMOL/L (3.5-5.1); SODIUM 136 MMOL/L (135-145); TOTAL CARBON DIOXIDE 29.3 MMOL/L (24-32); eCRCL 29 ML/MIN; eGFR 36 ML/MIN
[2024-07-11 18:14] LABS: HEMATOCRIT 28.1 % (42.0-52.0); HEMOGLOBIN 8.8 g/dl (14.0-17.9); MEAN CORPUSCULAR HEMOGLOBIN 22.8 PG (27.0-31.0); MEAN CORPUSCULAR HGB CONC 31.3 g/dL (33.0-36.5); MEAN CORPUSCULAR VOLUME 72.9 FL (78-98); RED BLOOD COUNT 3.85 X10'6 (4.70-6.10)
[2024-07-12] VITALS (60 sets, daily range): BP systolic 80–126; BP diastolic 44–72; PULSE 79–95; RESP 16–19; TEMP 98.4; O2SAT 89–100
[2024-07-12 01:31] LABS: BASOPHILS % (AUTO) 0.1 % (0-1); HEMOGLOBIN 9.4 g/dl (14.0-17.9)
[2024-07-12 01:32] LABS: EOSINOPHILS % (AUTO) 0 % (0-6); HEMATOCRIT 30.9 % (42.0-52.0); LYMPHOCYTES # (AUTO) 0.5 X10'3 (1.1-4.8); LYMPHOCYTES % (AUTO) 4.4 % (21-51); MEAN CORPUSCULAR HEMOGLOBIN 22.8 PG (27.0-31.0); MEAN CORPUSCULAR HGB CONC 30.5 g/dL (33.0-36.5); MEAN CORPUSCULAR VOLUME 74.9 FL (78-98); MEAN PLATELET VOLUME 8.6 FL (7.4-10.4); MONOCYTES # (AUTO) 0.6 X10'3 (0-0.9); MONOCYTES % (AUTO) 6.2 % (2-12); NEUTROPHILS # (AUTO) 9.3 X10'3 (1.8-7.7); NEUTROPHILS % (AUTO) 89.3 % (42-75); PLATELET COUNT 201 X10'3 (140-440); RED BLOOD COUNT 4.13 X10'6 (4.70-6.10); RED CELL DISTRIBUTION WIDTH 22.7 % (11.5-14.5); WHITE BLOOD COUNT 10.4 X10'3 (4.5-11.0)
[2024-07-12 01:42] LABS: ALBUMIN 2.6 G/DL (3.4-5.0); ANION GAP 5 (8-16); BLOOD UREA NITROGEN 40 MG/DL (7-18); BUN/CREATININE RATIO 20.4 (10.0-20.0); CALCIUM 8.5 MG/DL (8.5-10.1); CHLORIDE 102 MMOL/L (99-107); CREATININE 1.96 MG/DL (0.60-1.10); GLUCOSE 172 MG/DL (70-104); PHOSPHORUS 3.4 MG/DL (2.3-4.5); POTASSIUM 4.6 MMOL/L (3.5-5.1); PREALBUMIN 25.8 MG/DL (19-36); SODIUM 136 MMOL/L (135-145); TOTAL CARBON DIOXIDE 28.9 MMOL/L (24-32); eCRCL 28 ML/MIN; eGFR 35 ML/MIN
[2024-07-12 03:28] LABS: ABG BASE EXCESS 1.5 mmol/L (-2.0-3.0); ABG HCO3 25.8 mmol/L (21.0-28.0); ABG OXYGEN SATURATION 88.8 % (94.0-98.0); ABG PCO2 (T) 38.8 mmHg (35.0-48.0); ABG PH (T) 7.439 (7.350-7.450); ABG PO2 (T) 53.3 mmHg (83.0-108.0); FCOHb 0.9 % (0.5-1.5); FHHb 11.1 % (0.0-5.0); FMetHb 0.3 % (0.0-1.5); FO2Hb 87.7 % (94.0-98.0); MODE VENT - AC; PATIENT TEMPERATURE 36.4; PEEP 5 cm H2O; RESPIRATORY RATE 19 b/min; TIDAL VOLUME 450 mL; TOTAL HEMOGLOBIN 10.5 G/dl (13.5-17.5)
[2024-07-12 06:01] LABS: EOSINOPHILS % (AUTO) 0 % (0-6); LYMPHOCYTES # (AUTO) 0.7 X10'3 (1.1-4.8); MONOCYTES # (AUTO) 0.7 X10'3 (0-0.9)
[2024-07-12 06:02] LABS: BASOPHILS % (AUTO) 0 % (0-1); LYMPHOCYTES % (AUTO) 6.9 % (21-51); MEAN PLATELET VOLUME 7.8 FL (7.4-10.4); MONOCYTES % (AUTO) 6.7 % (2-12); NEUTROPHILS # (AUTO) 8.6 X10'3 (1.8-7.7); NEUTROPHILS % (AUTO) 86.4 % (42-75)
[2024-07-12 06:14] LABS: ALBUMIN 2.6 G/DL (3.4-5.0); ANION GAP 4 (8-16); BLOOD UREA NITROGEN 39 MG/DL (7-18); BUN/CREATININE RATIO 20.4 (10.0-20.0); CALCIUM 8.7 MG/DL (8.5-10.1); CHLORIDE 102 MMOL/L (99-107); CREATININE 1.91 MG/DL (0.60-1.10); GLUCOSE 162 MG/DL (70-104); MAGNESIUM 2.1 MG/DL (1.5-2.4); PHOSPHORUS 3.2 MG/DL (2.3-4.5); POTASSIUM 4.6 MMOL/L (3.5-5.1); SODIUM 135 MMOL/L (135-145); eCRCL 29 ML/MIN; eGFR 36 ML/MIN
[2024-07-12 06:17] LABS: HEMATOCRIT 31.5 % (42.0-52.0); HEMOGLOBIN 9.7 g/dl (14.0-17.9); MEAN CORPUSCULAR HEMOGLOBIN 23.1 PG (27.0-31.0); MEAN CORPUSCULAR HGB CONC 30.6 g/dL (33.0-36.5); MEAN CORPUSCULAR VOLUME 75.3 FL (78-98); RED BLOOD COUNT 4.19 X10'6 (4.70-6.10); WHITE BLOOD COUNT 9.9 X10'3 (4.5-11.0)
[2024-07-12 06:18] LABS: PLATELET COUNT 178 X10'3 (140-440); RED CELL DISTRIBUTION WIDTH 22.6 % (11.5-14.5)
[2024-07-12] MEDS: azithromycin 200mg/5ml oral suspension via UD syringe OGT SCH (07:44)
[2024-07-12] MEDS: albumin (human) 25% 100 ML IV solution IV ONE (08:41)
[2024-07-12] MEDS: albumin (Human) 5% 250ml 250 ML IV SCH (08:42)
[2024-07-12 12:29] LABS: BASOPHILS % (AUTO) 0.1 % (0-1); EOSINOPHILS % (AUTO) 0 % (0-6); LYMPHOCYTES # (AUTO) 0.5 X10'3 (1.1-4.8); LYMPHOCYTES % (AUTO) 5.3 % (21-51); MEAN PLATELET VOLUME 8.7 FL (7.4-10.4); MONOCYTES # (AUTO) 0.5 X10'3 (0-0.9); MONOCYTES % (AUTO) 5.9 % (2-12); NEUTROPHILS # (AUTO) 8.1 X10'3 (1.8-7.7); NEUTROPHILS % (AUTO) 88.7 % (42-75); PLATELET COUNT 167 X10'3 (140-440); WHITE BLOOD COUNT 9.1 X10'3 (4.5-11.0)
[2024-07-12 12:34] LABS: ALBUMIN 3.5 G/DL (3.4-5.0); ANION GAP 5 (8-16); BLOOD UREA NITROGEN 39 MG/DL (7-18); BUN/CREATININE RATIO 20.9 (10.0-20.0); CALCIUM 8.4 MG/DL (8.5-10.1); CHLORIDE 102 MMOL/L (99-107); CREATININE 1.87 MG/DL (0.60-1.10); GLUCOSE 156 MG/DL (70-104); PHOSPHORUS 3.4 MG/DL (2.3-4.5); POTASSIUM 4.8 MMOL/L (3.5-5.1); SODIUM 135 MMOL/L (135-145); TOTAL CARBON DIOXIDE 28.5 MMOL/L (24-32); eCRCL 30 ML/MIN; eGFR 37 ML/MIN
[2024-07-12 12:48] LABS: HEMATOCRIT 27.9 % (42.0-52.0); HEMOGLOBIN 8.7 g/dl (14.0-17.9); MEAN CORPUSCULAR HEMOGLOBIN 22.9 PG (27.0-31.0); MEAN CORPUSCULAR HGB CONC 31.4 g/dL (33.0-36.5); RED BLOOD COUNT 3.82 X10'6 (4.70-6.10); RED CELL DISTRIBUTION WIDTH 22.3 % (11.5-14.5)
[2024-07-12] MEDS: LACTULOSE RC SCH (12:55)
[2024-07-12] MEDS: WATER FOR INJECTION RC SCH (12:55)
[2024-07-12] MEDS: STERILE RC SCH (12:55)
[2024-07-12] MEDS ORDERED: STERILE IR SCH (14:00)
[2024-07-12] MEDS ORDERED: LACTULOSE IR SCH (14:00)
[2024-07-12] MEDS ORDERED: WATER FOR INJECTION IR SCH (14:00)
[2024-07-12] MEDS: heparin, porcine 5000 units/ml vial SQ SCH (15:27)
[2024-07-12 17:25] LABS: BASOPHILS % (AUTO) 0.2 % (0-1); EOSINOPHILS % (AUTO) 0 % (0-6); HEMATOCRIT 28.8 % (42.0-52.0); HEMOGLOBIN 8.7 g/dl (14.0-17.9); LYMPHOCYTES # (AUTO) 0.5 X10'3 (1.1-4.8); LYMPHOCYTES % (AUTO) 5.4 % (21-51); MEAN CORPUSCULAR HEMOGLOBIN 22.6 PG (27.0-31.0); MEAN CORPUSCULAR HGB CONC 30.1 g/dL (33.0-36.5); MEAN CORPUSCULAR VOLUME 75.1 FL (78-98); MEAN PLATELET VOLUME 7.9 FL (7.4-10.4); MONOCYTES # (AUTO) 0.6 X10'3 (0-0.9); MONOCYTES % (AUTO) 6.2 % (2-12); NEUTROPHILS # (AUTO) 7.9 X10'3 (1.8-7.7); NEUTROPHILS % (AUTO) 88.2 % (42-75); PLATELET COUNT 174 X10'3 (140-440); RED BLOOD COUNT 3.84 X10'6 (4.70-6.10); RED CELL DISTRIBUTION WIDTH 22.5 % (11.5-14.5)
[2024-07-12 17:37] LABS: ALBUMIN 3.6 G/DL (3.4-5.0); ANION GAP 4 (8-16); BLOOD UREA NITROGEN 38 MG/DL (7-18); BUN/CREATININE RATIO 20.4 (10.0-20.0); CALCIUM 8.6 MG/DL (8.5-10.1); CHLORIDE 101 MMOL/L (99-107); CREATININE 1.86 MG/DL (0.60-1.10); GLUCOSE 164 MG/DL (70-104); PHOSPHORUS 3.9 MG/DL (2.3-4.5); POTASSIUM 5.1 MMOL/L (3.5-5.1); SODIUM 133 MMOL/L (135-145); TOTAL CARBON DIOXIDE 28.3 MMOL/L (24-32); eCRCL 30 ML/MIN; eGFR 37 ML/MIN
[2024-07-12] MEDS: lactulose 20gm/30ml cup PO SCH (18:55)
[2024-07-13] VITALS (82 sets, daily range): BP systolic 82–137; BP diastolic 44–75; PULSE 74–85; RESP 17–20; O2SAT 93–100
[2024-07-13 01:07] LABS: BASOPHILS % (AUTO) 0.1 % (0-1); EOSINOPHILS % (AUTO) 0 % (0-6); HEMOGLOBIN 8.4 g/dl (14.0-17.9); LYMPHOCYTES # (AUTO) 0.5 X10'3 (1.1-4.8); LYMPHOCYTES % (AUTO) 6.6 % (21-51); MEAN PLATELET VOLUME 7.6 FL (7.4-10.4); MONOCYTES # (AUTO) 0.7 X10'3 (0-0.9); MONOCYTES % (AUTO) 8.2 % (2-12); NEUTROPHILS # (AUTO) 6.9 X10'3 (1.8-7.7); NEUTROPHILS % (AUTO) 85.1 % (42-75); PLATELET COUNT 153 X10'3 (140-440); RED BLOOD COUNT 3.79 X10'6 (4.70-6.10); WHITE BLOOD COUNT 8.1 X10'3 (4.5-11.0)
[2024-07-13 01:17] LABS: ALBUMIN 3.7 G/DL (3.4-5.0); ANION GAP 5 (8-16); BLOOD UREA NITROGEN 38 MG/DL (7-18); BUN/CREATININE RATIO 20.5 (10.0-20.0); CALCIUM 8.6 MG/DL (8.5-10.1); CHLORIDE 100 MMOL/L (99-107); CREATININE 1.85 MG/DL (0.60-1.10); GLUCOSE 126 MG/DL (70-104); PHOSPHORUS 3.7 MG/DL (2.3-4.5); POTASSIUM 4.9 MMOL/L (3.5-5.1); SODIUM 134 MMOL/L (135-145); TOTAL CARBON DIOXIDE 28.9 MMOL/L (24-32); TRIGLYCERIDES 72 MG/DL (20-135); eCRCL 30 ML/MIN; eGFR 37 ML/MIN
[2024-07-13 01:33] LABS: HEMATOCRIT 26.6 % (42.0-52.0); MEAN CORPUSCULAR HEMOGLOBIN 22.9 PG (27.0-31.0); MEAN CORPUSCULAR HGB CONC 31.6 g/dL (33.0-36.5); MEAN CORPUSCULAR VOLUME 72.3 FL (78-98); RED CELL DISTRIBUTION WIDTH 22.1 % (11.5-14.5)
[2024-07-13 03:35] LABS: ABG BASE EXCESS -1.8 mmol/L (-2.0-3.0); ABG HCO3 22.2 mmol/L (21.0-28.0); ABG OXYGEN SATURATION 93.7 % (94.0-98.0); ABG PCO2 (T) 34.1 mmHg (35.0-48.0); ABG PO2 (T) 67.6 mmHg (83.0-108.0); ALLEN'S TEST POSITIVE; FCOHb 0.7 % (0.5-1.5); FHHb 6.2 % (0.0-5.0); FMetHb 0.3 % (0.0-1.5); FO2Hb 92.8 % (94.0-98.0); MODE VENT - AC; PATIENT TEMPERATURE 36.8; PEEP 10 cm H2O; RESPIRATORY RATE 19 b/min; TIDAL VOLUME 450 mL; TOTAL HEMOGLOBIN 9.6 G/dl (13.5-17.5)
[2024-07-13 06:47] LABS: BASOPHILS % (AUTO) 0.1 % (0-1); EOSINOPHILS % (AUTO) 0.1 % (0-6); HEMOGLOBIN 8.7 g/dl (14.0-17.9); LYMPHOCYTES # (AUTO) 0.5 X10'3 (1.1-4.8); LYMPHOCYTES % (AUTO) 5.5 % (21-51); MEAN PLATELET VOLUME 7.9 FL (7.4-10.4); MONOCYTES # (AUTO) 0.6 X10'3 (0-0.9); MONOCYTES % (AUTO) 6.3 % (2-12); PLATELET COUNT 168 X10'3 (140-440); WHITE BLOOD COUNT 9.1 X10'3 (4.5-11.0)
[2024-07-13 07:02] LABS: HEMATOCRIT 28.3 % (42.0-52.0); MEAN CORPUSCULAR HEMOGLOBIN 23.5 PG (27.0-31.0); MEAN CORPUSCULAR VOLUME 75.7 FL (78-98); RED BLOOD COUNT 3.73 X10'6 (4.70-6.10); RED CELL DISTRIBUTION WIDTH 22.6 % (11.5-14.5)
[2024-07-13 07:13] LABS: ALBUMIN 3.9 G/DL (3.4-5.0); ANION GAP 4 (8-16); BLOOD UREA NITROGEN 38 MG/DL (7-18); BUN/CREATININE RATIO 21.8 (10.0-20.0); CALCIUM 8.8 MG/DL (8.5-10.1); CHLORIDE 100 MMOL/L (99-107); CREATININE 1.74 MG/DL (0.60-1.10); GLUCOSE 182 MG/DL (70-104); PHOSPHORUS 3.7 MG/DL (2.3-4.5); POTASSIUM 5.2 MMOL/L (3.5-5.1); SODIUM 133 MMOL/L (135-145); TOTAL CARBON DIOXIDE 28.9 MMOL/L (24-32); eCRCL 32 ML/MIN; eGFR 40 ML/MIN
[2024-07-13 11:57] LABS: BASOPHILS % (AUTO) 0 % (0-1); EOSINOPHILS % (AUTO) 0 % (0-6); HEMATOCRIT 28.3 % (42.0-52.0); HEMOGLOBIN 8.5 g/dl (14.0-17.9); LYMPHOCYTES # (AUTO) 0.4 X10'3 (1.1-4.8); LYMPHOCYTES % (AUTO) 4.5 % (21-51); MEAN CORPUSCULAR HEMOGLOBIN 22.5 PG (27.0-31.0); MEAN CORPUSCULAR VOLUME 74.9 FL (78-98); MEAN PLATELET VOLUME 8.1 FL (7.4-10.4); MONOCYTES # (AUTO) 0.4 X10'3 (0-0.9); MONOCYTES % (AUTO) 4.7 % (2-12); NEUTROPHILS # (AUTO) 8.1 X10'3 (1.8-7.7); NEUTROPHILS % (AUTO) 90.8 % (42-75); PLATELET COUNT 172 X10'3 (140-440); RED BLOOD COUNT 3.78 X10'6 (4.70-6.10); RED CELL DISTRIBUTION WIDTH 22.9 % (11.5-14.5); WHITE BLOOD COUNT 8.9 X10'3 (4.5-11.0)
[2024-07-13 12:10] LABS: ALBUMIN 3.9 G/DL (3.4-5.0); ANION GAP 8 (8-16); BLOOD UREA NITROGEN 37 MG/DL (7-18); BUN/CREATININE RATIO 22.2 (10.0-20.0); CHLORIDE 104 MMOL/L (99-107); CREATININE 1.67 MG/DL (0.60-1.10); GLUCOSE 162 MG/DL (70-104); PHOSPHORUS 4.1 MG/DL (2.3-4.5); POTASSIUM 5.4 MMOL/L (3.5-5.1); SODIUM 138 MMOL/L (135-145); TOTAL CARBON DIOXIDE 26.3 MMOL/L (24-32); eCRCL 33 ML/MIN; eGFR 42 ML/MIN
[2024-07-13] MEDS: NORepinephrine 8mg/ 250ml NS 250 ML IV SCH (15:16)
[2024-07-13 17:22] LABS: BASOPHILS % (AUTO) 0 % (0-1); EOSINOPHILS % (AUTO) 0 % (0-6); LYMPHOCYTES # (AUTO) 0.4 X10'3 (1.1-4.8); LYMPHOCYTES % (AUTO) 3.5 % (21-51); MONOCYTES # (AUTO) 0.9 X10'3 (0-0.9); MONOCYTES % (AUTO) 6.7 % (2-12); NEUTROPHILS # (AUTO) 11.4 X10'3 (1.8-7.7); NEUTROPHILS % (AUTO) 89.8 % (42-75); PLATELET COUNT 200 X10'3 (140-440); WHITE BLOOD COUNT 12.8 X10'3 (4.5-11.0)
[2024-07-13 17:29] LABS: ALBUMIN 4.2 G/DL (3.4-5.0); ANION GAP 9 (8-16); BLOOD UREA NITROGEN 39 MG/DL (7-18); BUN/CREATININE RATIO 23.4 (10.0-20.0); CALCIUM 8.9 MG/DL (8.5-10.1); CHLORIDE 100 MMOL/L (99-107); CREATININE 1.67 MG/DL (0.60-1.10); GLUCOSE 149 MG/DL (70-104); MAGNESIUM 2.1 MG/DL (1.5-2.4); PHOSPHORUS 3.9 MG/DL (2.3-4.5); POTASSIUM 5.5 MMOL/L (3.5-5.1); SODIUM 137 MMOL/L (135-145); TOTAL CARBON DIOXIDE 27.7 MMOL/L (24-32); eCRCL 33 ML/MIN; eGFR 42 ML/MIN
[2024-07-13 17:36] LABS: HEMOGLOBIN 8.8 g/dl (14.0-17.9); MEAN CORPUSCULAR VOLUME 76.5 FL (78-98); RED BLOOD COUNT 3.79 X10'6 (4.70-6.10)
[2024-07-13 17:37] LABS: MEAN CORPUSCULAR HEMOGLOBIN 23.2 PG (27.0-31.0); MEAN CORPUSCULAR HGB CONC 30.3 g/dL (33.0-36.5); RED CELL DISTRIBUTION WIDTH 22.6 % (11.5-14.5)
[2024-07-13] MEDS: bicarb dialysis sol 2K+/3 Ca2+ 5,000 ML HE SCH (18:49)
[2024-07-13] MEDS: lactulose 20gm/30ml cup OGT SCH (20:22)
[2024-07-14] VITALS (83 sets, daily range): BP systolic 86–140; BP diastolic 45–81; PULSE 23–81; RESP 18–20; TEMP 98.2; O2SAT 91–100
[2024-07-14 02:52] LABS: ABG BASE EXCESS 0.8 mmol/L (-2.0-3.0); ABG HCO3 24.7 mmol/L (21.0-28.0); ABG OXYGEN SATURATION 94.3 % (94.0-98.0); ABG PCO2 (T) 36.2 mmHg (35.0-48.0); ABG PH (T) 7.451 (7.350-7.450); ALLEN'S TEST POSITIVE; FCOHb 0.6 % (0.5-1.5); FHHb 5.6 % (0.0-5.0); FMetHb 0.3 % (0.0-1.5); FO2Hb 93.5 % (94.0-98.0); MODE VENT - AC; PATIENT TEMPERATURE 36.9; PEEP 10 cm H2O; RESPIRATORY RATE 19 b/min; TIDAL VOLUME 450 mL; TOTAL HEMOGLOBIN 10.1 G/dl (13.5-17.5)
[2024-07-14 02:53] LABS: ALBUMIN 3.9 G/DL (3.4-5.0); ANION GAP 6 (8-16); BLOOD UREA NITROGEN 37 MG/DL (7-18); BUN/CREATININE RATIO 22.2 (10.0-20.0); CALCIUM 9.1 MG/DL (8.5-10.1); CHLORIDE 101 MMOL/L (99-107); CREATININE 1.67 MG/DL (0.60-1.10); GLUCOSE 137 MG/DL (70-104); MAGNESIUM 2.1 MG/DL (1.5-2.4); POTASSIUM 4.7 MMOL/L (3.5-5.1); SODIUM 136 MMOL/L (135-145); TOTAL CARBON DIOXIDE 28.8 MMOL/L (24-32); eCRCL 33 ML/MIN; eGFR 42 ML/MIN
[2024-07-14 03:49] LABS: BASOPHILS % (AUTO) 0 % (0-1); EOSINOPHILS % (AUTO) 0.1 % (0-6); LYMPHOCYTES # (AUTO) 0.7 X10'3 (1.1-4.8); LYMPHOCYTES % (AUTO) 5.7 % (21-51); MEAN PLATELET VOLUME 8.3 FL (7.4-10.4); MONOCYTES % (AUTO) 8.2 % (2-12); NEUTROPHILS # (AUTO) 10.3 X10'3 (1.8-7.7); PLATELET COUNT 177 X10'3 (140-440)
[2024-07-14 04:33] LABS: HEMATOCRIT 29.3 % (42.0-52.0); HEMOGLOBIN 9.3 g/dl (14.0-17.9); RED BLOOD COUNT 4.05 X10'6 (4.70-6.10)
[2024-07-14 04:34] LABS: MEAN CORPUSCULAR HEMOGLOBIN 22.8 PG (27.0-31.0); MEAN CORPUSCULAR HGB CONC 31.6 g/dL (33.0-36.5); MEAN CORPUSCULAR VOLUME 72.3 FL (78-98)
[2024-07-14 04:35] LABS: RED CELL DISTRIBUTION WIDTH 22.8 % (11.5-14.5)
[2024-07-14 08:18] LABS: BASOPHILS % (AUTO) 0.1 % (0-1); EOSINOPHILS % (AUTO) 0 % (0-6); HEMATOCRIT 30.2 % (42.0-52.0); HEMOGLOBIN 9.2 g/dl (14.0-17.9); LYMPHOCYTES # (AUTO) 0.7 X10'3 (1.1-4.8); LYMPHOCYTES % (AUTO) 5.4 % (21-51); MEAN CORPUSCULAR HEMOGLOBIN 22.6 PG (27.0-31.0); MEAN CORPUSCULAR HGB CONC 30.5 g/dL (33.0-36.5); MEAN CORPUSCULAR VOLUME 74.1 FL (78-98); MEAN PLATELET VOLUME 8.2 FL (7.4-10.4); MONOCYTES # (AUTO) 0.9 X10'3 (0-0.9); MONOCYTES % (AUTO) 7.6 % (2-12); NEUTROPHILS # (AUTO) 10.8 X10'3 (1.8-7.7); NEUTROPHILS % (AUTO) 86.9 % (42-75); PLATELET COUNT 203 X10'3 (140-440); RED BLOOD COUNT 4.07 X10'6 (4.70-6.10); RED CELL DISTRIBUTION WIDTH 23.3 % (11.5-14.5); WHITE BLOOD COUNT 12.4 X10'3 (4.5-11.0)
[2024-07-14 08:43] LABS: ALBUMIN 3.9 G/DL (3.4-5.0); ANION GAP 7 (8-16); BLOOD UREA NITROGEN 39 MG/DL (7-18); BUN/CREATININE RATIO 24.1 (10.0-20.0); CALCIUM CVVH 9.1 MG/DL (8.5-10.1); CHLORIDE 100 MMOL/L (99-107); CREATININE 1.62 MG/DL (0.60-1.10); GLUCOSE 138 MG/DL (70-104); MAGNESIUM 2.1 MG/DL (1.5-2.4); POTASSIUM 4.4 MMOL/L (3.5-5.1); SODIUM 135 MMOL/L (135-145); TOTAL CARBON DIOXIDE 28.3 MMOL/L (24-32); eGFR 44 ML/MIN
[2024-07-14 13:45] LABS: BASOPHILS % (AUTO) 0 % (0-1); EOSINOPHILS % (AUTO) 0 % (0-6); HEMATOCRIT 32.4 % (42.0-52.0); HEMOGLOBIN 9.6 g/dl (14.0-17.9); LYMPHOCYTES # (AUTO) 0.5 X10'3 (1.1-4.8); LYMPHOCYTES % (AUTO) 3.4 % (21-51); MEAN CORPUSCULAR HGB CONC 29.5 g/dL (33.0-36.5); MEAN CORPUSCULAR VOLUME 74.6 FL (78-98); MEAN PLATELET VOLUME 8.3 FL (7.4-10.4); MONOCYTES # (AUTO) 0.7 X10'3 (0-0.9); MONOCYTES % (AUTO) 4.8 % (2-12); NEUTROPHILS # (AUTO) 13.3 X10'3 (1.8-7.7); NEUTROPHILS % (AUTO) 91.8 % (42-75); PLATELET COUNT 221 X10'3 (140-440); RED BLOOD COUNT 4.35 X10'6 (4.70-6.10); RED CELL DISTRIBUTION WIDTH 22.9 % (11.5-14.5); WHITE BLOOD COUNT 14.5 X10'3 (4.5-11.0)
[2024-07-14 13:58] LABS: ALBUMIN 3.9 G/DL (3.4-5.0); ANION GAP 8 (8-16); BLOOD UREA NITROGEN 41 MG/DL (7-18); BUN/CREATININE RATIO 23.8 (10.0-20.0); CALCIUM CVVH 9.2 MG/DL (8.5-10.1); CHLORIDE 101 MMOL/L (99-107); CREATININE 1.72 MG/DL (0.60-1.10); GLUCOSE 190 MG/DL (70-104); POTASSIUM 4.5 MMOL/L (3.5-5.1); SODIUM 136 MMOL/L (135-145); eGFR 41 ML/MIN
[2024-07-14 20:21] LABS: BASOPHILS % (AUTO) 0.2 % (0-1); EOSINOPHILS % (AUTO) 0.1 % (0-6); LYMPHOCYTES # (AUTO) 0.7 X10'3 (1.1-4.8); LYMPHOCYTES % (AUTO) 4.7 % (21-51); MEAN PLATELET VOLUME 8.1 FL (7.4-10.4); MONOCYTES # (AUTO) 0.8 X10'3 (0-0.9); MONOCYTES % (AUTO) 5.1 % (2-12); NEUTROPHILS # (AUTO) 13.3 X10'3 (1.8-7.7); NEUTROPHILS % (AUTO) 89.9 % (42-75); PLATELET COUNT 216 X10'3 (140-440); WHITE BLOOD COUNT 14.8 X10'3 (4.5-11.0)
[2024-07-14 20:36] LABS: ALBUMIN 3.9 G/DL (3.4-5.0); ANION GAP 6 (8-16); BLOOD UREA NITROGEN 42 MG/DL (7-18); BUN/CREATININE RATIO 24.7 (10.0-20.0); CHLORIDE 99 MMOL/L (99-107); GLUCOSE 172 MG/DL (70-104); MAGNESIUM 2.1 MG/DL (1.5-2.4); POTASSIUM 4.4 MMOL/L (3.5-5.1); SODIUM 134 MMOL/L (135-145); TOTAL CARBON DIOXIDE 29.2 MMOL/L (24-32); eGFR 41 ML/MIN
[2024-07-14 20:39] LABS: HEMATOCRIT 30.4 % (42.0-52.0); HEMOGLOBIN 9.6 g/dl (14.0-17.9); MEAN CORPUSCULAR HEMOGLOBIN 22.6 PG (27.0-31.0); MEAN CORPUSCULAR VOLUME 71.8 FL (78-98); RED BLOOD COUNT 4.24 X10'6 (4.70-6.10)
[2024-07-14 20:40] LABS: MEAN CORPUSCULAR HGB CONC 31.5 g/dL (33.0-36.5); RED CELL DISTRIBUTION WIDTH 22.4 % (11.5-14.5)
[2024-07-14] MEDS: heparin 1,000 units/ml 10ml inj HE ONE ×2 (23:25→23:26)
[2024-07-15] VITALS (57 sets, daily range): BP systolic 88–135; BP diastolic 41–74; PULSE 73–92; RESP 11–19; TEMP 97.3–97.8; O2SAT 91–97
[2024-07-15 02:16] LABS: BASOPHILS % (AUTO) 0.1 % (0-1); EOSINOPHILS % (AUTO) 0.1 % (0-6); LYMPHOCYTES # (AUTO) 0.6 X10'3 (1.1-4.8); LYMPHOCYTES % (AUTO) 5.1 % (21-51); MONOCYTES # (AUTO) 0.6 X10'3 (0-0.9); MONOCYTES % (AUTO) 4.6 % (2-12); NEUTROPHILS # (AUTO) 11.3 X10'3 (1.8-7.7); NEUTROPHILS % (AUTO) 90.1 % (42-75); PLATELET COUNT 191 X10'3 (140-440); WHITE BLOOD COUNT 12.5 X10'3 (4.5-11.0)
[2024-07-15 02:32] LABS: ALANINE AMINOTRANSFERASE 159 U/L (12-78); ALBUMIN 3.6 G/DL (3.4-5.0); ALBUMIN/GLOBULIN RATIO 1.1 (1.1-1.5); ALKALINE PHOSPHATASE 156 IU/L (46-116); ANION GAP 9 (8-16); ASPARTATE AMINO TRANSFERASE 78 U/L (10-37); BILIRUBIN,TOTAL 1.2 MG/DL (0.1-1.0); BLOOD UREA NITROGEN 56 MG/DL (7-18); BUN/CREATININE RATIO 25.7 (10.0-20.0); CALCIUM 8.9 MG/DL (8.5-10.1); CHLORIDE 101 MMOL/L (99-107); CREATININE 2.18 MG/DL (0.60-1.10); GLUCOSE 195 MG/DL (70-104); MAGNESIUM 2.2 MG/DL (1.5-2.4); PHOSPHORUS 5.4 MG/DL (2.3-4.5); POTASSIUM 4.8 MMOL/L (3.5-5.1); SODIUM 137 MMOL/L (135-145); TOTAL CARBON DIOXIDE 26.9 MMOL/L (24-32); TOTAL PROTEIN 6.9 G/DL (6.4-8.2); TRIGLYCERIDES 72 MG/DL (20-135); eCRCL 25 ML/MIN; eGFR 31 ML/MIN
[2024-07-15 02:44] LABS: HEMATOCRIT 29.9 % (42.0-52.0); HEMOGLOBIN 9.4 g/dl (14.0-17.9); MEAN CORPUSCULAR HEMOGLOBIN 22.9 PG (27.0-31.0); MEAN CORPUSCULAR HGB CONC 31.6 g/dL (33.0-36.5); MEAN CORPUSCULAR VOLUME 72.3 FL (78-98); RED BLOOD COUNT 4.13 X10'6 (4.70-6.10); RED CELL DISTRIBUTION WIDTH 22.7 % (11.5-14.5)
[2024-07-15 03:46] LABS: ABG BASE EXCESS -1.7 mmol/L (-2.0-3.0); ABG HCO3 23.3 mmol/L (21.0-28.0); ABG OXYGEN SATURATION 94.9 % (94.0-98.0); ABG PCO2 (T) 40.4 mmHg (35.0-48.0); ABG PH (T) 7.379 (7.350-7.450); ABG PO2 (T) 78.1 mmHg (83.0-108.0); FCOHb 0.6 % (0.5-1.5); FHHb 5.1 % (0.0-5.0); FMetHb 0.3 % (0.0-1.5); MODE prvc; PEEP 10 cm H2O; RESPIRATORY RATE 19 b/min; TIDAL VOLUME 450 mL; TOTAL HEMOGLOBIN 10.4 G/dl (13.5-17.5)
[2024-07-15] MEDS: risperiDONE 2mg tablet OGT STA (10:42)
[2024-07-15] MEDS: risperiDONE 0.5mg tablet OGT STA (10:42)
[2024-07-15] MEDS: EPOETIN ALFA-EPBX 20,000 UNIT/ML 1 ML MDV IV ONE (12:51)
[2024-07-15] MEDS: heparin 1,000 units/ml 10ml inj IV ONE (12:59)
[2024-07-15] MEDS: heparin 1,000unit/ml 10ml vial 10 ML IV ONE (13:09)
[2024-07-15] MEDS: heparin 1,000 units/ml 10ml inj HE ONE ×2 (13:09→13:10)
[2024-07-15] MEDS: albumin (human) 25% 100ml IV 100 ML IV PRN (13:14)
[2024-07-15] MEDS: risperiDONE 2mg tablet OGT SCH (19:57)
[2024-07-16] VITALS (54 sets, daily range): BP systolic 115–165; BP diastolic 60–80; PULSE 80–111; RESP 8–26; O2SAT 92–98
[2024-07-16 03:29] LABS: BASOPHILS % (AUTO) 0.1 % (0-1); EOSINOPHILS % (AUTO) 0.1 % (0-6); LYMPHOCYTES # (AUTO) 0.8 X10'3 (1.1-4.8); LYMPHOCYTES % (AUTO) 5.8 % (21-51); MEAN PLATELET VOLUME 8.2 FL (7.4-10.4); MONOCYTES # (AUTO) 0.7 X10'3 (0-0.9); NEUTROPHILS # (AUTO) 11.8 X10'3 (1.8-7.7); PLATELET COUNT 211 X10'3 (140-440); WHITE BLOOD COUNT 13.3 X10'3 (4.5-11.0)
[2024-07-16 03:36] LABS: ABG BASE EXCESS -3.2 mmol/L (-2.0-3.0); ABG HCO3 21.2 mmol/L (21.0-28.0); ABG OXYGEN SATURATION 92.6 % (94.0-98.0); ABG PCO2 (T) 35.4 mmHg (35.0-48.0); ABG PH (T) 7.396 (7.350-7.450); ABG PO2 (T) 67.6 mmHg (83.0-108.0); FCOHb 0.7 % (0.5-1.5); FHHb 7.3 % (0.0-5.0); FMetHb 0.3 % (0.0-1.5); FO2Hb 91.7 % (94.0-98.0); MODE prvc; PATIENT TEMPERATURE 37.1; PEEP 7 cm H2O; RESPIRATORY RATE 12 b/min; TIDAL VOLUME 450 mL; TOTAL HEMOGLOBIN 10.4 G/dl (13.5-17.5)
[2024-07-16 03:39] LABS: ALBUMIN 3.8 G/DL (3.4-5.0); ANION GAP 13 (8-16); BLOOD UREA NITROGEN 67 MG/DL (7-18); BUN/CREATININE RATIO 25.3 (10.0-20.0); CHLORIDE 100 MMOL/L (99-107); CREATININE 2.65 MG/DL (0.60-1.10); GLUCOSE 144 MG/DL (70-104); MAGNESIUM 2.6 MG/DL (1.5-2.4); PHOSPHORUS 6.7 MG/DL (2.3-4.5); POTASSIUM 5.5 MMOL/L (3.5-5.1); SODIUM 137 MMOL/L (135-145); TOTAL CARBON DIOXIDE 24.2 MMOL/L (24-32); TRIGLYCERIDES 63 MG/DL (20-135); eCRCL 21 ML/MIN; eGFR 25 ML/MIN
[2024-07-16 04:46] LABS: HEMOGLOBIN 9.3 g/dl (14.0-17.9); MEAN CORPUSCULAR HEMOGLOBIN 23.2 PG (27.0-31.0); MEAN CORPUSCULAR HGB CONC 32.3 g/dL (33.0-36.5); RED BLOOD COUNT 4.03 X10'6 (4.70-6.10); RED CELL DISTRIBUTION WIDTH 23.1 % (11.5-14.5)
[2024-07-16 04:47] LABS: BANDS% (MANUAL) 2 % (0-10); LYMPHOCYTES % (MANUAL) 4 % (21-51); NEUTROPHILS % (MANUAL) 89 % (42-75); TOTAL CELLS COUNTED 100
[2024-07-16 04:48] LABS: ANISOCYTOSIS 2+; HYPOCHROMASIA 3+; LARGE PLATELETS FEW; METAMYLEOCYTES% (MANUAL) 1 % (0-0); MICROCYTOSIS 1+; MONOCYTES % (MANUAL) 4 % (2-12); PLATELET ESTIMATE NORMAL; POIKILOCYTOSIS 2+; POLYCHROMASIA 1+; TARGET CELLS 1+
[2024-07-16 04:49] LABS: ELLIPTOCYTES 1+; HYPERSEGMENTED NEUTROPHILS FEW
[2024-07-16] MEDS: rifaximin 550mg tablet OGT SCH (11:20)
[2024-07-16] MEDS: heparin 1,000 units/ml 10ml inj HE ONE ×2 (12:48)
[2024-07-16] MEDS: sodium polystyrene sulfonate 15gm/60ml oral suspension NG ONE (17:09)
[2024-07-16] MEDS: methylPREDNISolone sod succ/PF 40mg inj. IV SCH (20:05)
[2024-07-17] VITALS (57 sets, daily range): BP systolic 81–163; BP diastolic 25–90; PULSE 85–109; RESP 10–23; TEMP 98–98.2; O2SAT 89–99
[2024-07-17 02:36] LABS: BASOPHILS % (AUTO) 0.1 % (0-1); EOSINOPHILS % (AUTO) 0.2 % (0-6); HEMATOCRIT 29.3 % (42.0-52.0); HEMOGLOBIN 8.8 g/dl (14.0-17.9); LYMPHOCYTES # (AUTO) 0.8 X10'3 (1.1-4.8); LYMPHOCYTES % (AUTO) 6.4 % (21-51); MEAN CORPUSCULAR HEMOGLOBIN 22.1 PG (27.0-31.0); MEAN CORPUSCULAR VOLUME 73.7 FL (78-98); MEAN PLATELET VOLUME 8.8 FL (7.4-10.4); MONOCYTES # (AUTO) 1.4 X10'3 (0-0.9); MONOCYTES % (AUTO) 11.5 % (2-12); NEUTROPHILS # (AUTO) 9.8 X10'3 (1.8-7.7); NEUTROPHILS % (AUTO) 81.8 % (42-75); PLATELET COUNT 229 X10'3 (140-440); RED BLOOD COUNT 3.97 X10'6 (4.70-6.10); RED CELL DISTRIBUTION WIDTH 23.5 % (11.5-14.5)
[2024-07-17 02:44] LABS: ALBUMIN 3.7 G/DL (3.4-5.0); ANION GAP 15 (8-16); BLOOD UREA NITROGEN 120 MG/DL (7-18); BUN/CREATININE RATIO 28.9 (10.0-20.0); CALCIUM 8.6 MG/DL (8.5-10.1); CHLORIDE 96 MMOL/L (99-107); CREATININE 4.15 MG/DL (0.60-1.10); GLUCOSE 120 MG/DL (70-104); MAGNESIUM 2.9 MG/DL (1.5-2.4); PHOSPHORUS 7.9 MG/DL (2.3-4.5); POTASSIUM 5.6 MMOL/L (3.5-5.1); SODIUM 135 MMOL/L (135-145); TOTAL CARBON DIOXIDE 24.5 MMOL/L (24-32); eCRCL 13 ML/MIN; eGFR 15 ML/MIN
[2024-07-17] MEDS: methylPREDNISolone sod succ/PF 40mg inj. IV ONE (04:21)
[2024-07-17] MEDS ORDERED: albumin (human) 25% 100ml IV 100 ML IV PRN (05:35)
[2024-07-17] MEDS: EPOETIN ALFA-EPBX 20,000 UNIT/ML 1 ML MDV IV ONE ×2 (08:44→08:47)
[2024-07-17] MEDS: heparin 1,000 units/ml 10ml inj IV ONE ×2 (08:45→08:47)
[2024-07-17] MEDS: heparin 1,000 units/ml 10ml inj HE ONE ×3 (08:45→08:46)
[2024-07-17] MEDS: heparin 1,000unit/ml 10ml vial 10 ML IV ONE ×2 (08:45→08:47)
[2024-07-17] MEDS: albumin (human) 25% 100ml IV 100 ML IV PRN (10:45)
[2024-07-17] MEDS: methylPREDNISolone sod succ/PF 40mg inj. IV SCH (12:24)
[2024-07-17] MEDS ORDERED: hydrALAZINE 20mg/ml inj. IV PRN (18:00)
[2024-07-18] VITALS (50 sets, daily range): BP systolic 100–169; BP diastolic 59–96; PULSE 65–114; RESP 19–29; TEMP 98–98.9; O2SAT 81–95
[2024-07-18 03:00] LABS: BASOPHILS % (AUTO) 0.3 % (0-1); EOSINOPHILS % (AUTO) 0.2 % (0-6); HEMATOCRIT 31.6 % (42.0-52.0); HEMOGLOBIN 9.7 g/dl (14.0-17.9); MONOCYTES # (AUTO) 0.8 X10'3 (0-0.9)
[2024-07-18 03:02] LABS: LYMPHOCYTES # (AUTO) 0.9 X10'3 (1.1-4.8); LYMPHOCYTES % (AUTO) 6.6 % (21-51); MEAN CORPUSCULAR HEMOGLOBIN 22.8 PG (27.0-31.0); MEAN CORPUSCULAR HGB CONC 30.8 g/dL (33.0-36.5); MEAN CORPUSCULAR VOLUME 74.3 FL (78-98); MEAN PLATELET VOLUME 8.3 FL (7.4-10.4); MONOCYTES % (AUTO) 5.8 % (2-12); NEUTROPHILS # (AUTO) 11.7 X10'3 (1.8-7.7); NEUTROPHILS % (AUTO) 87.1 % (42-75); PLATELET COUNT 244 X10'3 (140-440); RED BLOOD COUNT 4.26 X10'6 (4.70-6.10); RED CELL DISTRIBUTION WIDTH 23.9 % (11.5-14.5); WHITE BLOOD COUNT 13.4 X10'3 (4.5-11.0)
[2024-07-18 03:14] LABS: ALBUMIN 4.1 G/DL (3.4-5.0); ANION GAP 13 (8-16); BLOOD UREA NITROGEN 78 MG/DL (7-18); BUN/CREATININE RATIO 23.4 (10.0-20.0); CALCIUM 9.1 MG/DL (8.5-10.1); CHLORIDE 97 MMOL/L (99-107); CREATININE 3.34 MG/DL (0.60-1.10); GLUCOSE 116 MG/DL (70-104); MAGNESIUM 2.6 MG/DL (1.5-2.4); PHOSPHORUS 6.7 MG/DL (2.3-4.5); POTASSIUM 4.8 MMOL/L (3.5-5.1); SODIUM 135 MMOL/L (135-145); TOTAL CARBON DIOXIDE 25.4 MMOL/L (24-32); eCRCL 17 ML/MIN; eGFR 19 ML/MIN
[2024-07-18] MEDS ORDERED: albumin (human) 25% 100ml IV 100 ML IV PRN (09:20)
[2024-07-18] MEDS: heparin 1,000unit/ml 10ml vial 10 ML IV ONE (12:04)
[2024-07-18] MEDS: heparin 1,000 units/ml 10ml inj HE ONE ×2 (12:05→12:06)
[2024-07-18] MEDS: heparin 1,000 units/ml 10ml inj IV ONE (12:06)
[2024-07-18] MEDS: EPOETIN ALFA-EPBX 20,000 UNIT/ML 1 ML MDV IV ONE (12:08)
[2024-07-18] MEDS: insulin regular, human U-100 10ml vial - multi-dose SQ SCH (17:00)
[2024-07-19] VITALS (46 sets, daily range): BP systolic 107–145; BP diastolic 64–88; PULSE 81–113; RESP 19–32; TEMP 97.6–99.6; O2SAT 88–94
[2024-07-19 02:51] LABS: BASOPHILS % (AUTO) 0.2 % (0-1); EOSINOPHILS % (AUTO) 0.1 % (0-6); HEMATOCRIT 34.4 % (42.0-52.0); HEMOGLOBIN 10.5 g/dl (14.0-17.9); LYMPHOCYTES # (AUTO) 1.6 X10'3 (1.1-4.8); MEAN CORPUSCULAR HEMOGLOBIN 22.5 PG (27.0-31.0); MEAN CORPUSCULAR HGB CONC 30.5 g/dL (33.0-36.5); MEAN CORPUSCULAR VOLUME 73.5 FL (78-98); MEAN PLATELET VOLUME 8.3 FL (7.4-10.4); MONOCYTES # (AUTO) 0.9 X10'3 (0-0.9); MONOCYTES % (AUTO) 4.5 % (2-12); NEUTROPHILS # (AUTO) 17.8 X10'3 (1.8-7.7); NEUTROPHILS % (AUTO) 87.2 % (42-75); PLATELET COUNT 244 X10'3 (140-440); RED BLOOD COUNT 4.67 X10'6 (4.70-6.10); RED CELL DISTRIBUTION WIDTH 24.4 % (11.5-14.5); WHITE BLOOD COUNT 20.4 X10'3 (4.5-11.0)
[2024-07-19 03:01] LABS: ALBUMIN 4.4 G/DL (3.4-5.0); ANION GAP 16 (8-16); BLOOD UREA NITROGEN 75 MG/DL (7-18); CALCIUM 9.7 MG/DL (8.5-10.1); CHLORIDE 93 MMOL/L (99-107); CREATININE 4.17 MG/DL (0.60-1.10); GLUCOSE 149 MG/DL (70-104); MAGNESIUM 2.7 MG/DL (1.5-2.4); PHOSPHORUS 8.6 MG/DL (2.3-4.5); SODIUM 133 MMOL/L (135-145); TOTAL CARBON DIOXIDE 24.4 MMOL/L (24-32); TRIGLYCERIDES 90 MG/DL (20-135); eCRCL 13 ML/MIN; eGFR 15 ML/MIN
[2024-07-19] MEDS: EPOETIN ALFA-EPBX 20,000 UNIT/ML 1 ML MDV IV ONE (09:49)
[2024-07-19] MEDS: heparin 1,000unit/ml 10ml vial 10 ML IV ONE (10:01)
[2024-07-19] MEDS: heparin 1,000 units/ml 10ml inj HE ONE ×2 (10:02→10:05)
[2024-07-19] MEDS: heparin 1,000 units/ml 10ml inj IV ONE (10:05)
[2024-07-19] MEDS: tPA-cathflo 2mg/2ml IV flush 2 MG/2 ML VIAL IVF ONE (12:02)
[2024-07-19] MEDS: insulin glargine (Lantus) pen - multi-dose SQ SCH (21:00)
[2024-07-19] MEDS: ALPRAZolam 0.25mg tablet PO SCH (22:26)
[2024-07-20] VITALS (57 sets, daily range): BP systolic 83–157; BP diastolic 49–83; PULSE 85–111; RESP 16–26; TEMP 97.5–99.2; O2SAT 88–99
[2024-07-20] MEDS: ondansetron/PF 4mg/2ml inj IV PRN (06:00)
[2024-07-20 07:42] LABS: ALBUMIN 4.5 G/DL (3.4-5.0); ANION GAP 26 (8-16); BLOOD UREA NITROGEN 131 MG/DL (7-18); BUN/CREATININE RATIO 21.4 (10.0-20.0); CHLORIDE 85 MMOL/L (99-107); CREATININE 6.13 MG/DL (0.60-1.10); GLUCOSE 130 MG/DL (70-104); SODIUM 129 MMOL/L (135-145); TOTAL CARBON DIOXIDE 18.5 MMOL/L (24-32); eCRCL 9 ML/MIN; eGFR 9 ML/MIN
[2024-07-20] MEDS ORDERED: etomidate 2mg/ml inj. ONE (08:00)
[2024-07-20] MEDS: albuterol 2.5 MG/3 ML nebule ONE (08:25)
[2024-07-20] MEDS ORDERED: albuterol 2.5 MG/3 ML nebule CONTNEB PRN (08:25)
[2024-07-20] MEDS ORDERED: dextrose 50%-water 50ml dispensing syringe IV PRN (08:25)
[2024-07-20] MEDS: dextrose 50%-water 50ml dispensing syringe IV PRN (08:49)
[2024-07-20] MEDS: CALCIUM GLUC 1gm/50ml NACL,iso 50 ML IV ONE (08:50)
[2024-07-20] MEDS: sodium polystyrene sulfonate 15gm/60ml oral suspension PO STA (08:52)
[2024-07-20] MEDS: insulin regular, human 10 units/0.1 ml syringe IV STA (08:53)
[2024-07-20 09:42] LABS: BASOPHILS # (AUTO) 0.1 X10'3 (0-0.2); BASOPHILS % (AUTO) 0.2 % (0-1); EOSINOPHILS % (AUTO) 0.1 % (0-6); HEMATOCRIT 36.1 % (42.0-52.0); HEMOGLOBIN 10.7 g/dl (14.0-17.9); LYMPHOCYTES # (AUTO) 1.7 X10'3 (1.1-4.8); LYMPHOCYTES % (AUTO) 7.1 % (21-51); MEAN CORPUSCULAR HEMOGLOBIN 22.3 PG (27.0-31.0); MEAN CORPUSCULAR HGB CONC 29.8 g/dL (33.0-36.5); MEAN CORPUSCULAR VOLUME 74.8 FL (78-98); MEAN PLATELET VOLUME 8.2 FL (7.4-10.4); MONOCYTES # (AUTO) 0.3 X10'3 (0-0.9); MONOCYTES % (AUTO) 1.2 % (2-12); NEUTROPHILS # (AUTO) 22.1 X10'3 (1.8-7.7); NEUTROPHILS % (AUTO) 91.4 % (42-75); PLATELET COUNT 247 X10'3 (140-440); RED BLOOD COUNT 4.82 X10'6 (4.70-6.10); WHITE BLOOD COUNT 24.1 X10'3 (4.5-11.0)
[2024-07-20] MEDS: heparin 1,000unit/ml 10ml vial 10 ML IV ONE (10:08)
[2024-07-20] MEDS: heparin 1,000 units/ml 10ml inj IV ONE (10:09)
[2024-07-20] MEDS: heparin 1,000 units/ml 10ml inj HE ONE ×2 (10:09→10:10)
[2024-07-20] MEDS: albumin (human) 25% 100ml IV 100 ML IV PRN (10:15)
[2024-07-20 10:17] LABS: ALANINE AMINOTRANSFERASE 126 U/L (12-78); ALBUMIN 4.2 G/DL (3.4-5.0); ALKALINE PHOSPHATASE 225 IU/L (46-116); ANION GAP 24 (8-16); ASPARTATE AMINO TRANSFERASE 28 U/L (10-37); BILIRUBIN,TOTAL 1.7 MG/DL (0.1-1.0); BLOOD UREA NITROGEN 141 MG/DL (7-18); CALCIUM 9.7 MG/DL (8.5-10.1); CHLORIDE 84 MMOL/L (99-107); CREATININE 6.41 MG/DL (0.60-1.10); GLUCOSE 277 MG/DL (70-104); SODIUM 126 MMOL/L (135-145); TOTAL CARBON DIOXIDE 18.5 MMOL/L (24-32); TOTAL PROTEIN 8.5 G/DL (6.4-8.2); eCRCL 9 ML/MIN; eGFR 9 ML/MIN
[2024-07-20 10:39] LABS: POTASSIUM 6.6 MMOL/L (3.5-5.1)
[2024-07-20] MEDS ORDERED: propofol 10mg/ml 20ml vial IV PRN (11:15)
[2024-07-20] MEDS ORDERED: fentaNYL/PF 50MCG/1 ML 2ML syringe IV PRN (11:15)
[2024-07-20 11:23] LABS: ABG BASE EXCESS -12.3 mmol/L (-2.0-3.0); ABG HCO3 14.7 mmol/L (21.0-28.0); ABG OXYGEN SATURATION 99.4 % (94.0-98.0); ABG PCO2 (T) 37.1 mmHg (35.0-48.0); ABG PH (T) 7.215 (7.350-7.450); ABG PO2 (T) 180.7 mmHg (83.0-108.0); ALLEN'S TEST POSITIVE; FCOHb 0.8 % (0.5-1.5); FHHb 0.6 % (0.0-5.0); FMetHb 0.1 % (0.0-1.5); FO2Hb 98.5 % (94.0-98.0); MODE VENT - AC/PRVC; PATIENT TEMPERATURE 36.5; PEEP 10 cm H2O; RESPIRATORY RATE 16 b/min; TIDAL VOLUME 550 mL; TOTAL HEMOGLOBIN 12.2 G/dl (13.5-17.5)
[2024-07-20] MEDS: propofol 1000mg/100ml bottle 100 ML IV SCH (11:37)
[2024-07-20] MEDS: propofol 1000mg/100ml bottle 100 ML IV ONE (11:37)
[2024-07-20] MEDS: midazolam 1 mg/ML 2ml injection ONE (11:39)
[2024-07-20] MEDS: FENTANYL-0.9 % NACL/PF 100 ML IV SCH (13:11)
[2024-07-20] MEDS: albumin (human) 25% 100ml IV 100 ML IV ONE (13:51)
[2024-07-20 16:49] LABS: ALBUMIN 5.2 G/DL (3.4-5.0); ANION GAP 16 (8-16); BLOOD UREA NITROGEN 35 MG/DL (7-18); BUN/CREATININE RATIO 15.6 (10.0-20.0); CALCIUM 10.4 MG/DL (8.5-10.1); CHLORIDE 96 MMOL/L (99-107); CREATININE 2.25 MG/DL (0.60-1.10); GLUCOSE 128 MG/DL (70-104); POTASSIUM 3.6 MMOL/L (3.5-5.1); SODIUM 137 MMOL/L (135-145); TOTAL CARBON DIOXIDE 24.6 MMOL/L (24-32); eCRCL 25 ML/MIN; eGFR 30 ML/MIN
[2024-07-21] VITALS (47 sets, daily range): BP systolic 94–126; BP diastolic 60–78; PULSE 75–96; RESP 15–19; O2SAT 94–98
[2024-07-21 03:15] LABS: ABG BASE EXCESS -3.9 mmol/L (-2.0-3.0); ABG HCO3 20.8 mmol/L (21.0-28.0); ABG OXYGEN SATURATION 98.6 % (94.0-98.0); ABG PH (T) 7.368 (7.350-7.450); ABG PO2 (T) 124.6 mmHg (83.0-108.0); ALLEN'S TEST Modified; FCOHb 0.9 % (0.5-1.5); FHHb 1.4 % (0.0-5.0); FMetHb 0.3 % (0.0-1.5); FO2Hb 97.4 % (94.0-98.0); MODE VENT - PRVC; PATIENT TEMPERATURE 37.4; PEEP 10 cm H2O; RESPIRATORY RATE 16 b/min; TIDAL VOLUME 550 mL
[2024-07-21 06:40] LABS: ALANINE AMINOTRANSFERASE 119 U/L (12-78); ALBUMIN 4.5 G/DL (3.4-5.0); ALKALINE PHOSPHATASE 232 IU/L (46-116); ANION GAP 21 (8-16); ASPARTATE AMINO TRANSFERASE 35 U/L (10-37); BILIRUBIN,TOTAL 2.1 MG/DL (0.1-1.0); BLOOD UREA NITROGEN 76 MG/DL (7-18); BUN/CREATININE RATIO 16.9 (10.0-20.0); CALCIUM 9.4 MG/DL (8.5-10.1); CHLORIDE 92 MMOL/L (99-107); CREATININE 4.51 MG/DL (0.60-1.10); GLUCOSE 110 MG/DL (70-104); POTASSIUM 5.5 MMOL/L (3.5-5.1); SODIUM 134 MMOL/L (135-145); TOTAL CARBON DIOXIDE 21.5 MMOL/L (24-32); TOTAL PROTEIN 8.9 G/DL (6.4-8.2); TRIGLYCERIDES 158 MG/DL (20-135); eCRCL 12 ML/MIN; eGFR 13 ML/MIN
[2024-07-21 09:25] LABS: HBSAG SCREEN Negative (Negative); HEP B CORE AB, TOT Negative (Negative)
[2024-07-21] MEDS: mineral oil/petrolatum ophthal oint EACHEYE SCH (14:00)
[2024-07-22] VITALS (58 sets, daily range): BP systolic 101–138; BP diastolic 57–76; PULSE 44–100; RESP 16–19; TEMP 98.4; O2SAT 91–96
[2024-07-22 02:56] LABS: ABG BASE EXCESS -9.4 mmol/L (-2.0-3.0); ABG PCO2 (T) 28.3 mmHg (35.0-48.0); ABG PH (T) 7.342 (7.350-7.450); ABG PO2 (T) 89.6 mmHg (83.0-108.0); ALLEN'S TEST Modified; FCOHb 0.7 % (0.5-1.5); FMetHb 0.3 % (0.0-1.5); MODE VENT - PRVC; PATIENT TEMPERATURE 37.1; PEEP 5 cm H2O; RESPIRATORY RATE 16 b/min; TIDAL VOLUME 550 mL; TOTAL HEMOGLOBIN 11.5 G/dl (13.5-17.5)
[2024-07-22 04:43] LABS: BASOPHILS # (AUTO) 0.1 X10'3 (0-0.2); BASOPHILS % (AUTO) 0.3 % (0-1); EOSINOPHILS # (AUTO) 0.2 X10'3 (0-0.9); EOSINOPHILS % (AUTO) 0.9 % (0-6); HEMATOCRIT 34.7 % (42.0-52.0); HEMOGLOBIN 10.8 g/dl (14.0-17.9); LYMPHOCYTES # (AUTO) 1.2 X10'3 (1.1-4.8); MEAN CORPUSCULAR HEMOGLOBIN 23.6 PG (27.0-31.0); MEAN CORPUSCULAR HGB CONC 31.2 g/dL (33.0-36.5); MEAN CORPUSCULAR VOLUME 75.6 FL (78-98); MEAN PLATELET VOLUME 8.7 FL (7.4-10.4); MONOCYTES # (AUTO) 1.1 X10'3 (0-0.9); NEUTROPHILS # (AUTO) 15.1 X10'3 (1.8-7.7); NEUTROPHILS % (AUTO) 85.8 % (42-75); PLATELET COUNT 192 X10'3 (140-440); RED BLOOD COUNT 4.59 X10'6 (4.70-6.10); RED CELL DISTRIBUTION WIDTH 24.3 % (11.5-14.5); WHITE BLOOD COUNT 17.6 X10'3 (4.5-11.0)
[2024-07-22 04:58] LABS: ALANINE AMINOTRANSFERASE 88 U/L (12-78); ALBUMIN/GLOBULIN RATIO 0.9 (1.1-1.5); ALKALINE PHOSPHATASE 203 IU/L (46-116); ANION GAP 21 (8-16); ASPARTATE AMINO TRANSFERASE 26 U/L (10-37); BILIRUBIN,TOTAL 1.6 MG/DL (0.1-1.0); BLOOD UREA NITROGEN 125 MG/DL (7-18); BUN/CREATININE RATIO 18.6 (10.0-20.0); CALCIUM 9.3 MG/DL (8.5-10.1); CHLORIDE 89 MMOL/L (99-107); CREATININE 6.71 MG/DL (0.60-1.10); GLUCOSE 106 MG/DL (70-104); SODIUM 129 MMOL/L (135-145); TOTAL CARBON DIOXIDE 19.5 MMOL/L (24-32); TOTAL PROTEIN 8.3 G/DL (6.4-8.2); TRIGLYCERIDES 135 MG/DL (20-135); eCRCL 8 ML/MIN; eGFR 8 ML/MIN
[2024-07-22 05:05] LABS: POTASSIUM 6.9 MMOL/L (3.5-5.1)
[2024-07-22] MEDS: insulin regular, human U-100 10ml vial - multi-dose IV ONE (05:33)
[2024-07-22] MEDS: dextrose 50%-water 50ml dispensing syringe IV ONE (05:37)
[2024-07-22] MEDS: SODIUM ZIRCONIUM CYCLOSILICATE 10 GM POWD.PACK PO SCH (07:24)
[2024-07-22] MEDS: heparin 1,000 units/ml 10ml inj IV ONE (08:55)
[2024-07-22 09:19] LABS: ALBUMIN 3.7 G/DL (3.4-5.0); ANION GAP 20 (8-16); BLOOD UREA NITROGEN 113 MG/DL (7-18); BUN/CREATININE RATIO 18.8 (10.0-20.0); CALCIUM 8.9 MG/DL (8.5-10.1); CHLORIDE 93 MMOL/L (99-107); CREATININE 6.01 MG/DL (0.60-1.10); GLUCOSE 105 MG/DL (70-104); POTASSIUM 5.6 MMOL/L (3.5-5.1); SODIUM 134 MMOL/L (135-145); TOTAL CARBON DIOXIDE 21.5 MMOL/L (24-32); eCRCL 9 ML/MIN; eGFR 10 ML/MIN
[2024-07-22] MEDS: heparin 1,000 units/ml 10ml inj HE ONE ×2 (10:37→10:38)
[2024-07-22] MEDS: mannitol 12.5gm/50mL VIAL IV PRN (11:28)
[2024-07-22] MEDS: tPA-cathflo 2mg/2ml IV flush 2 MG/2 ML VIAL IVF ONE (11:42)
[2024-07-23] VITALS (39 sets, daily range): BP systolic 103–155; BP diastolic 59–86; PULSE 77–140; RESP 13–20; O2SAT 90–96
[2024-07-23 03:13] LABS: ABG BASE EXCESS -1.4 mmol/L (-2.0-3.0); ABG HCO3 22.8 mmol/L (21.0-28.0); ABG OXYGEN SATURATION 94.2 % (94.0-98.0); ABG PCO2 (T) 35.2 mmHg (35.0-48.0); ABG PH (T) 7.427 (7.350-7.450); ABG PO2 (T) 73.7 mmHg (83.0-108.0); FCOHb 0.6 % (0.5-1.5); FHHb 5.7 % (0.0-5.0); FMetHb 0.3 % (0.0-1.5); FO2Hb 93.4 % (94.0-98.0); MODE VENT - PRVC; PATIENT TEMPERATURE 36.4; PEEP 5 cm H2O; RESPIRATORY RATE 16 b/min; TIDAL VOLUME 550 mL; TOTAL HEMOGLOBIN 9.5 G/dl (13.5-17.5)
[2024-07-23 06:08] LABS: BASOPHILS # (AUTO) 0.1 X10'3 (0-0.2); BASOPHILS % (AUTO) 0.7 % (0-1); EOSINOPHILS # (AUTO) 0.3 X10'3 (0-0.9); EOSINOPHILS % (AUTO) 2.3 % (0-6); HEMATOCRIT 27.9 % (42.0-52.0); HEMOGLOBIN 8.5 g/dl (14.0-17.9); LYMPHOCYTES # (AUTO) 0.8 X10'3 (1.1-4.8); LYMPHOCYTES % (AUTO) 7.1 % (21-51); MEAN CORPUSCULAR HEMOGLOBIN 23.3 PG (27.0-31.0); MEAN CORPUSCULAR HGB CONC 30.5 g/dL (33.0-36.5); MEAN CORPUSCULAR VOLUME 76.5 FL (78-98); MONOCYTES # (AUTO) 0.7 X10'3 (0-0.9); MONOCYTES % (AUTO) 6.1 % (2-12); NEUTROPHILS # (AUTO) 10.1 X10'3 (1.8-7.7); NEUTROPHILS % (AUTO) 83.8 % (42-75); PLATELET COUNT 151 X10'3 (140-440); RED BLOOD COUNT 3.65 X10'6 (4.70-6.10)
[2024-07-23 06:27] LABS: ALANINE AMINOTRANSFERASE 63 U/L (12-78); ALBUMIN 3.1 G/DL (3.4-5.0); ALBUMIN/GLOBULIN RATIO 0.8 (1.1-1.5); ALKALINE PHOSPHATASE 167 IU/L (46-116); ANION GAP 17 (8-16); ASPARTATE AMINO TRANSFERASE 22 U/L (10-37); BILIRUBIN,TOTAL 1.2 MG/DL (0.1-1.0); BLOOD UREA NITROGEN 101 MG/DL (7-18); BUN/CREATININE RATIO 22.3 (10.0-20.0); CALCIUM 8.4 MG/DL (8.5-10.1); CHLORIDE 97 MMOL/L (99-107); CREATININE 4.53 MG/DL (0.60-1.10); GLUCOSE 116 MG/DL (70-104); POTASSIUM 4.8 MMOL/L (3.5-5.1); PREALBUMIN 29.1 MG/DL (19-36); SODIUM 138 MMOL/L (135-145); TOTAL CARBON DIOXIDE 24.3 MMOL/L (24-32); TOTAL PROTEIN 6.8 G/DL (6.4-8.2); eCRCL 12 ML/MIN; eGFR 13 ML/MIN
[2024-07-23] MEDS: COMMUNICATION ORDER 1 EA MISC MC ONE (07:03)
[2024-07-23] MEDS: risperiDONE 0.5mg tablet OGT SCH (07:07)
[2024-07-23 07:57] LABS: MAGNESIUM 2.6 MG/DL (1.5-2.4)
[2024-07-23 08:13] LABS: PHOSPHORUS 9.1 MG/DL (2.3-4.5)
[2024-07-23] MEDS ORDERED: DEXTROSE 15 GM of carb/4 tabs (each vial/BOTTLE has 4 tablets) PO PRN ×2 (10:30)
[2024-07-23] MEDS ORDERED: dextrose 50%-water 50ml dispensing syringe IV PRN ×2 (10:30)
[2024-07-23] MEDS ORDERED: glucagon, human recombinant 1mg kit SUBCUT PRN (10:30)
[2024-07-23] MEDS: INSULIN LISPRO 100 UNIT/ML INSULN.PEN MULTI-DOSE SQ SCH (12:00)
[2024-07-23] MEDS: gelatin sponge, absorbable (Gelfoam-100 compressed) sponge TP ONE (19:44)
[2024-07-23] MEDS: gelatin sponge, absorbable (Gelfoam 12-7MM) sponge TP ONE (19:44)
[2024-07-23 20:10] LABS: HEMATOCRIT 26.6 % (42.0-52.0); HEMOGLOBIN 8.2 g/dl (14.0-17.9); MEAN CORPUSCULAR HEMOGLOBIN 23.4 PG (27.0-31.0); MEAN CORPUSCULAR HGB CONC 30.9 g/dL (33.0-36.5); MEAN CORPUSCULAR VOLUME 75.7 FL (78-98); MEAN PLATELET VOLUME 8.5 FL (7.4-10.4); PLATELET COUNT 138 X10'3 (140-440); RED BLOOD COUNT 3.51 X10'6 (4.70-6.10); RED CELL DISTRIBUTION WIDTH 26.7 % (11.5-14.5); WHITE BLOOD COUNT 11.7 X10'3 (4.5-11.0)
[2024-07-23 20:15] LABS: APTT 32 SECONDS (22-32); PROTHROMBIN TIME 10.2 SECONDS (9.0-12.0)
[2024-07-24] VITALS (50 sets, daily range): BP systolic 112–144; BP diastolic 62–76; PULSE 82–105; RESP 14–24; TEMP 97.9–98; O2SAT 81–100
[2024-07-24 06:12] LABS: BASOPHILS # (AUTO) 0.1 X10'3 (0-0.2); EOSINOPHILS # (AUTO) 0.2 X10'3 (0-0.9); EOSINOPHILS % (AUTO) 1.9 % (0-6); HEMATOCRIT 26.7 % (42.0-52.0); HEMOGLOBIN 8.2 g/dl (14.0-17.9); LYMPHOCYTES # (AUTO) 0.7 X10'3 (1.1-4.8); LYMPHOCYTES % (AUTO) 6.9 % (21-51); MEAN CORPUSCULAR HEMOGLOBIN 23.6 PG (27.0-31.0); MEAN CORPUSCULAR HGB CONC 30.7 g/dL (33.0-36.5); MEAN CORPUSCULAR VOLUME 76.8 FL (78-98); MEAN PLATELET VOLUME 8.9 FL (7.4-10.4); MONOCYTES # (AUTO) 0.6 X10'3 (0-0.9); MONOCYTES % (AUTO) 6.2 % (2-12); NEUTROPHILS # (AUTO) 8.7 X10'3 (1.8-7.7); PLATELET COUNT 125 X10'3 (140-440); RED BLOOD COUNT 3.48 X10'6 (4.70-6.10); RED CELL DISTRIBUTION WIDTH 26.6 % (11.5-14.5); WHITE BLOOD COUNT 10.4 X10'3 (4.5-11.0)
[2024-07-24 06:28] LABS: ALANINE AMINOTRANSFERASE 55 U/L (12-78); ALBUMIN/GLOBULIN RATIO 0.8 (1.1-1.5); ALKALINE PHOSPHATASE 185 IU/L (46-116); ANION GAP 13 (8-16); ASPARTATE AMINO TRANSFERASE 32 U/L (10-37); BILIRUBIN,TOTAL 1.5 MG/DL (0.1-1.0); BLOOD UREA NITROGEN 126 MG/DL (7-18); BUN/CREATININE RATIO 23.2 (10.0-20.0); CALCIUM 8.2 MG/DL (8.5-10.1); CHLORIDE 88 MMOL/L (99-107); CREATININE 5.44 MG/DL (0.60-1.10); GLUCOSE 95 MG/DL (70-104); MAGNESIUM 2.5 MG/DL (1.5-2.4); POTASSIUM 5.5 MMOL/L (3.5-5.1); SODIUM 126 MMOL/L (135-145); TOTAL CARBON DIOXIDE 24.8 MMOL/L (24-32); TOTAL PROTEIN 6.8 G/DL (6.4-8.2); eCRCL 10 ML/MIN; eGFR 11 ML/MIN
[2024-07-24] MEDS ORDERED: hyDRALAzine 10mg tablet PO PRN (06:42)
[2024-07-24] MEDS ORDERED: mag hydrox/Alum hydrox/simeth 30ml oral suspension PO PRN (06:43)
[2024-07-24 06:50] LABS: PHOSPHORUS 11.9 MG/DL (2.3-4.5)
[2024-07-24] MEDS: rifaximin 550mg tablet PO SCH (07:14)
[2024-07-24] MEDS: risperiDONE 0.5mg tablet PO SCH (07:14)
[2024-07-24] MEDS: ipratropium/albuterol 3ml nebule NEB PRN (07:32)
[2024-07-24] MEDS ORDERED: amiodarone 200mg tablet PO SCH (08:00)
[2024-07-24] MEDS: heparin 1,000 units/ml 10ml inj IV ONE (10:01)
[2024-07-24] MEDS: heparin 1,000unit/ml 10ml vial 10 ML IV ONE (10:02)
[2024-07-24] MEDS: heparin 1,000 units/ml 10ml inj HE ONE ×2 (10:02→10:03)
[2024-07-24] MEDS: EPOETIN ALFA-EPBX 20,000 UNIT/ML 1 ML MDV IV ONE (10:05)
[2024-07-24] MEDS ORDERED: bisacodyl 10mg suppository rectal RC PRN (10:20)
[2024-07-24] MEDS: polyethylene glycol 3350 17gm powd pack PO PRN (11:16)
[2024-07-25] VITALS (34 sets, daily range): BP systolic 95–134; BP diastolic 55–83; PULSE 93–108; RESP 14–29; O2SAT 87–98
[2024-07-25 06:03] LABS: BASOPHILS # (AUTO) 0.1 X10'3 (0-0.2); BASOPHILS % (AUTO) 1.5 % (0-1); EOSINOPHILS # (AUTO) 0.1 X10'3 (0-0.9); EOSINOPHILS % (AUTO) 1.4 % (0-6); HEMOGLOBIN 7.8 g/dl (14.0-17.9); LYMPHOCYTES # (AUTO) 0.4 X10'3 (1.1-4.8); LYMPHOCYTES % (AUTO) 4.7 % (21-51); MEAN CORPUSCULAR HEMOGLOBIN 24.2 PG (27.0-31.0); MEAN CORPUSCULAR HGB CONC 31.2 g/dL (33.0-36.5); MEAN CORPUSCULAR VOLUME 77.4 FL (78-98); MEAN PLATELET VOLUME 8.6 FL (7.4-10.4); MONOCYTES # (AUTO) 0.5 X10'3 (0-0.9); MONOCYTES % (AUTO) 5.9 % (2-12); NEUTROPHILS # (AUTO) 7.2 X10'3 (1.8-7.7); NEUTROPHILS % (AUTO) 86.5 % (42-75); PLATELET COUNT 117 X10'3 (140-440); RED BLOOD COUNT 3.22 X10'6 (4.70-6.10); RED CELL DISTRIBUTION WIDTH 28.5 % (11.5-14.5); WHITE BLOOD COUNT 8.3 X10'3 (4.5-11.0)
[2024-07-25 06:19] LABS: ALANINE AMINOTRANSFERASE 57 U/L (12-78); ALBUMIN 2.9 G/DL (3.4-5.0); ALBUMIN/GLOBULIN RATIO 0.8 (1.1-1.5); ALKALINE PHOSPHATASE 197 IU/L (46-116); ANION GAP 10 (8-16); ASPARTATE AMINO TRANSFERASE 38 U/L (10-37); BILIRUBIN,TOTAL 1.4 MG/DL (0.1-1.0); BLOOD UREA NITROGEN 59 MG/DL (7-18); BUN/CREATININE RATIO 17.3 (10.0-20.0); CALCIUM 8.1 MG/DL (8.5-10.1); CHLORIDE 96 MMOL/L (99-107); CREATININE 3.41 MG/DL (0.60-1.10); GLUCOSE 105 MG/DL (70-104); MAGNESIUM 2.1 MG/DL (1.5-2.4); POTASSIUM 4.4 MMOL/L (3.5-5.1); SODIUM 134 MMOL/L (135-145); TOTAL PROTEIN 6.7 G/DL (6.4-8.2); eCRCL 16 ML/MIN; eGFR 19 ML/MIN
[2024-07-25] MEDS: NUT.TX.IMP.RENAL FXN,LAC-REDUC (Nepro) 237 ML VANILLA PO SCH (13:00)
[2024-07-25] MEDS: acetaminophen 325mg tablet PO PRN (20:43)
[2024-07-26] VITALS (35 sets, daily range): BP systolic 110–138; BP diastolic 59–82; PULSE 65–113; RESP 13–24; TEMP 97–99.2; O2SAT 90–98
[2024-07-26 06:03] LABS: BASOPHILS # (AUTO) 0.1 X10'3 (0-0.2); BASOPHILS % (AUTO) 1.3 % (0-1); EOSINOPHILS # (AUTO) 0.3 X10'3 (0-0.9); EOSINOPHILS % (AUTO) 3.7 % (0-6); HEMATOCRIT 25.1 % (42.0-52.0); HEMOGLOBIN 7.9 g/dl (14.0-17.9); LYMPHOCYTES # (AUTO) 0.4 X10'3 (1.1-4.8); LYMPHOCYTES % (AUTO) 6.1 % (21-51); MEAN CORPUSCULAR HEMOGLOBIN 24.4 PG (27.0-31.0); MEAN CORPUSCULAR HGB CONC 31.3 g/dL (33.0-36.5); MEAN CORPUSCULAR VOLUME 77.8 FL (78-98); MEAN PLATELET VOLUME 8.6 FL (7.4-10.4); MONOCYTES # (AUTO) 0.4 X10'3 (0-0.9); MONOCYTES % (AUTO) 6.1 % (2-12); NEUTROPHILS # (AUTO) 5.8 X10'3 (1.8-7.7); NEUTROPHILS % (AUTO) 82.8 % (42-75); PLATELET COUNT 118 X10'3 (140-440); RED BLOOD COUNT 3.23 X10'6 (4.70-6.10); RED CELL DISTRIBUTION WIDTH 29.7 % (11.5-14.5)
[2024-07-26 06:13] LABS: ALANINE AMINOTRANSFERASE 65 U/L (12-78); ALBUMIN 2.9 G/DL (3.4-5.0); ALBUMIN/GLOBULIN RATIO 0.7 (1.1-1.5); ALKALINE PHOSPHATASE 206 IU/L (46-116); ANION GAP 9 (8-16); ASPARTATE AMINO TRANSFERASE 37 U/L (10-37); BILIRUBIN,TOTAL 1.5 MG/DL (0.1-1.0); BLOOD UREA NITROGEN 81 MG/DL (7-18); CALCIUM 8.4 MG/DL (8.5-10.1); CHLORIDE 93 MMOL/L (99-107); CREATININE 4.51 MG/DL (0.60-1.10); GLUCOSE 92 MG/DL (70-104); MAGNESIUM 2.2 MG/DL (1.5-2.4); PHOSPHORUS 7.9 MG/DL (2.3-4.5); POTASSIUM 4.3 MMOL/L (3.5-5.1); SODIUM 130 MMOL/L (135-145); TOTAL CARBON DIOXIDE 27.7 MMOL/L (24-32); TOTAL PROTEIN 6.9 G/DL (6.4-8.2); eCRCL 12 ML/MIN; eGFR 13 ML/MIN
[2024-07-26] MEDS: magnesium hydroxide 30ml (MOM) UD suspension PO PRN (08:44)
[2024-07-26] MEDS ORDERED: fentaNYL/PF 50MCG/1 ML 2ML syringe ONE (09:19)
[2024-07-26] MEDS ORDERED: midazolam 1 mg/ML 2ml injection ONE (09:19)
[2024-07-26] MEDS ORDERED: LIDOcaine 1% 30ml preserv. free vial ONE (09:20)
[2024-07-26] MEDS ORDERED: heparin 1,000unit/ml 10ml vial 10 ML ONE (09:20)
[2024-07-26] MEDS: polyethylene glycol 3350 17gm powd pack PO SCH (10:26)
[2024-07-26] MEDS ORDERED: iohexol 300 MG/1 ML 50ml polymer ONE (10:47)
[2024-07-26] MEDS: calcium acetate 667mg (phosLO) tablet PO SCH (12:00)
[2024-07-26] MEDS: heparin 1,000 units/ml 10ml inj IV ONE (14:48)
[2024-07-26] MEDS: heparin 1,000 units/ml 10ml inj HE ONE ×2 (14:48→14:49)
[2024-07-26] MEDS: docusate sod 100mg capsule PO SCH (21:43)
[2024-07-27] VITALS (10 sets, daily range): BP systolic 94–128; BP diastolic 50–56; PULSE 86–105; RESP 15–22; TEMP 97.7–98; O2SAT 89–98
[2024-07-27] MEDS: LORazepam 0.5 MG tablet PO ONE (01:50)
[2024-07-27 04:44] LABS: BASOPHILS # (AUTO) 0.1 X10'3 (0-0.2); BASOPHILS % (AUTO) 1.1 % (0-1); EOSINOPHILS # (AUTO) 0.3 X10'3 (0-0.9); EOSINOPHILS % (AUTO) 3.5 % (0-6); HEMATOCRIT 26.4 % (42.0-52.0); HEMOGLOBIN 8.4 g/dl (14.0-17.9); LYMPHOCYTES # (AUTO) 0.4 X10'3 (1.1-4.8); LYMPHOCYTES % (AUTO) 4.6 % (21-51); MEAN CORPUSCULAR HEMOGLOBIN 24.3 PG (27.0-31.0); MEAN CORPUSCULAR HGB CONC 31.7 g/dL (33.0-36.5); MEAN CORPUSCULAR VOLUME 76.8 FL (78-98); MEAN PLATELET VOLUME 8.4 FL (7.4-10.4); MONOCYTES # (AUTO) 0.5 X10'3 (0-0.9); MONOCYTES % (AUTO) 5.2 % (2-12); NEUTROPHILS # (AUTO) 7.7 X10'3 (1.8-7.7); NEUTROPHILS % (AUTO) 85.6 % (42-75); PLATELET COUNT 133 X10'3 (140-440); RED BLOOD COUNT 3.44 X10'6 (4.70-6.10); RED CELL DISTRIBUTION WIDTH 30.4 % (11.5-14.5)
[2024-07-27 04:58] LABS: ALANINE AMINOTRANSFERASE 68 U/L (12-78); ALBUMIN 2.9 G/DL (3.4-5.0); ALBUMIN/GLOBULIN RATIO 0.7 (1.1-1.5); ALKALINE PHOSPHATASE 214 IU/L (46-116); ANION GAP 10 (8-16); ASPARTATE AMINO TRANSFERASE 39 U/L (10-37); BILIRUBIN,TOTAL 1.3 MG/DL (0.1-1.0); BLOOD UREA NITROGEN 48 MG/DL (7-18); CALCIUM 8.8 MG/DL (8.5-10.1); CHLORIDE 98 MMOL/L (99-107); GLUCOSE 107 MG/DL (70-104); MAGNESIUM 2.3 MG/DL (1.5-2.4); PHOSPHORUS 4.4 MG/DL (2.3-4.5); POTASSIUM 3.9 MMOL/L (3.5-5.1); SODIUM 134 MMOL/L (135-145); TOTAL CARBON DIOXIDE 26.1 MMOL/L (24-32); TOTAL PROTEIN 7.1 G/DL (6.4-8.2); eCRCL 19 ML/MIN; eGFR 21 ML/MIN
[2024-07-27] MEDS: levoFLOXACIN-Levaquin 250mg/D5 50 ML IV SCH (08:17)
[2024-07-27] MEDS: acetaminophen 325mg tablet PO PRN (23:10)
[2024-07-28] VITALS (19 sets, daily range): BP systolic 97–154; BP diastolic 58–86; PULSE 89–117; RESP 16–28; TEMP 97.5–98.5; O2SAT 89–99
[2024-07-28 05:38] LABS: BASOPHILS # (AUTO) 0.1 X10'3 (0-0.2); BASOPHILS % (AUTO) 0.8 % (0-1); EOSINOPHILS # (AUTO) 0.3 X10'3 (0-0.9); EOSINOPHILS % (AUTO) 4.3 % (0-6); LYMPHOCYTES # (AUTO) 0.5 X10'3 (1.1-4.8); LYMPHOCYTES % (AUTO) 6.3 % (21-51); MEAN CORPUSCULAR HEMOGLOBIN 24.5 PG (27.0-31.0); MEAN CORPUSCULAR HGB CONC 31.9 g/dL (33.0-36.5); MEAN CORPUSCULAR VOLUME 76.8 FL (78-98); MEAN PLATELET VOLUME 8.5 FL (7.4-10.4); MONOCYTES # (AUTO) 0.5 X10'3 (0-0.9); MONOCYTES % (AUTO) 6.7 % (2-12); NEUTROPHILS # (AUTO) 6.5 X10'3 (1.8-7.7); NEUTROPHILS % (AUTO) 81.9 % (42-75); PLATELET COUNT 145 X10'3 (140-440); RED BLOOD COUNT 3.26 X10'6 (4.70-6.10); RED CELL DISTRIBUTION WIDTH 31.2 % (11.5-14.5)
[2024-07-28 06:03] LABS: ALANINE AMINOTRANSFERASE 61 U/L (12-78); ALBUMIN 2.9 G/DL (3.4-5.0); ALBUMIN/GLOBULIN RATIO 0.7 (1.1-1.5); ALKALINE PHOSPHATASE 197 IU/L (46-116); ANION GAP 11 (8-16); ASPARTATE AMINO TRANSFERASE 28 U/L (10-37); BLOOD UREA NITROGEN 78 MG/DL (7-18); BUN/CREATININE RATIO 18.3 (10.0-20.0); CALCIUM 8.8 MG/DL (8.5-10.1); CHLORIDE 95 MMOL/L (99-107); CREATININE 4.27 MG/DL (0.60-1.10); GLUCOSE 122 MG/DL (70-104); MAGNESIUM 2.3 MG/DL (1.5-2.4); PHOSPHORUS 4.7 MG/DL (2.3-4.5); SODIUM 131 MMOL/L (135-145); TOTAL CARBON DIOXIDE 25.5 MMOL/L (24-32); TOTAL PROTEIN 6.8 G/DL (6.4-8.2); TRIGLYCERIDES 101 MG/DL (20-135); eCRCL 13 ML/MIN; eGFR 14 ML/MIN
[2024-07-28 07:46] LABS: ANISOCYTOSIS 3+; HYPOCHROMASIA 1+; MICROCYTOSIS 1+; PLATELET ESTIMATE NORMAL; POLYCHROMASIA 1+; SCHISTOCYTES FEW
[2024-07-28] MEDS: LORazepam 2 mg/ml vial IM ONE (12:28)
[2024-07-28] MEDS: heparin 1,000 units/ml 10ml inj HE ONE ×2 (12:56)
[2024-07-28] MEDS: EPOETIN ALFA-EPBX 20,000 UNIT/ML 1 ML MDV IV ONE (12:56)
[2024-07-28] MEDS: heparin 1,000 units/ml 10ml inj IV ONE (12:57)
[2024-07-28] MEDS ORDERED: risperiDONE 0.5mg tablet PO ONE (21:55)
[2024-07-28] MEDS: diphenhydrAMINE 25mg capsule PO PRN (23:32)
[2024-07-28] MEDS: temazepam 15mg capsule PO ONE (23:32)
[2024-07-29] VITALS (13 sets, daily range): BP systolic 118–136; BP diastolic 67–81; PULSE 62–107; RESP 11–23; TEMP 96.8–100.4; O2SAT 92–98
[2024-07-29 05:58] LABS: BASOPHILS % (AUTO) 0.5 % (0-1); EOSINOPHILS # (AUTO) 0.3 X10'3 (0-0.9); EOSINOPHILS % (AUTO) 3.9 % (0-6); HEMATOCRIT 27.6 % (42.0-52.0); HEMOGLOBIN 8.6 g/dl (14.0-17.9); LYMPHOCYTES # (AUTO) 0.5 X10'3 (1.1-4.8); LYMPHOCYTES % (AUTO) 7.3 % (21-51); MEAN CORPUSCULAR HEMOGLOBIN 24.1 PG (27.0-31.0); MEAN CORPUSCULAR VOLUME 77.7 FL (78-98); MEAN PLATELET VOLUME 8.6 FL (7.4-10.4); MONOCYTES # (AUTO) 0.5 X10'3 (0-0.9); MONOCYTES % (AUTO) 7.1 % (2-12); NEUTROPHILS # (AUTO) 5.3 X10'3 (1.8-7.7); NEUTROPHILS % (AUTO) 81.2 % (42-75); PLATELET COUNT 189 X10'3 (140-440); RED BLOOD COUNT 3.56 X10'6 (4.70-6.10); RED CELL DISTRIBUTION WIDTH 31.8 % (11.5-14.5); WHITE BLOOD COUNT 6.6 X10'3 (4.5-11.0)
[2024-07-29 06:21] LABS: ALANINE AMINOTRANSFERASE 60 U/L (12-78); ALBUMIN 2.9 G/DL (3.4-5.0); ALBUMIN/GLOBULIN RATIO 0.7 (1.1-1.5); ALKALINE PHOSPHATASE 186 IU/L (46-116); ANION GAP 12 (8-16); ASPARTATE AMINO TRANSFERASE 29 U/L (10-37); BLOOD UREA NITROGEN 41 MG/DL (7-18); BUN/CREATININE RATIO 14.1 (10.0-20.0); CHLORIDE 99 MMOL/L (99-107); CREATININE 2.91 MG/DL (0.60-1.10); GLUCOSE 100 MG/DL (70-104); MAGNESIUM 2.3 MG/DL (1.5-2.4); PHOSPHORUS 3.3 MG/DL (2.3-4.5); POTASSIUM 3.5 MMOL/L (3.5-5.1); SODIUM 137 MMOL/L (135-145); TOTAL CARBON DIOXIDE 26.5 MMOL/L (24-32); TOTAL PROTEIN 7.1 G/DL (6.4-8.2); eCRCL 19 ML/MIN; eGFR 22 ML/MIN
[2024-07-29 06:37] LABS: ANISOCYTOSIS 3+; MICROCYTOSIS 1+; PLATELET ESTIMATE NORMAL; POLYCHROMASIA FEW
[2024-07-29] MEDS ORDERED: calcium acetate 667mg (PhosLO) capsule PO SCH (08:03)
[2024-07-29] MEDS: calcium acetate 667mg (PhosLO) capsule PO SCH (08:06)
[2024-07-29] MEDS: CefTRIAXone/D5W-Rocephin 1gm 50 ML IV SCH (14:10)
[2024-07-30] VITALS (12 sets, daily range): BP systolic 116–135; BP diastolic 62–72; PULSE 83–98; RESP 12–24; TEMP 97–98; O2SAT 92–100
[2024-07-30] MEDS: heparin 1,000unit/ml 10ml vial 10 ML IV ONE (01:45)
[2024-07-30] MEDS: heparin 1,000 units/ml 10ml inj IV ONE (01:45)
[2024-07-30] MEDS: EPOETIN ALFA-EPBX 20,000 UNIT/ML 1 ML MDV IV ONE (01:45)
[2024-07-30] MEDS: heparin 1,000 units/ml 10ml inj HE ONE (01:50)
[2024-07-30 07:23] LABS: BASOPHILS % (AUTO) 0.6 % (0-1); EOSINOPHILS # (AUTO) 0.5 X10'3 (0-0.9); EOSINOPHILS % (AUTO) 7.4 % (0-6); HEMATOCRIT 28.2 % (42.0-52.0); HEMOGLOBIN 8.8 g/dl (14.0-17.9); LYMPHOCYTES # (AUTO) 0.4 X10'3 (1.1-4.8); LYMPHOCYTES % (AUTO) 5.8 % (21-51); MEAN CORPUSCULAR HEMOGLOBIN 24.7 PG (27.0-31.0); MEAN CORPUSCULAR HGB CONC 31.3 g/dL (33.0-36.5); MEAN CORPUSCULAR VOLUME 79.1 FL (78-98); MEAN PLATELET VOLUME 7.9 FL (7.4-10.4); MONOCYTES # (AUTO) 0.3 X10'3 (0-0.9); MONOCYTES % (AUTO) 4.7 % (2-12); NEUTROPHILS # (AUTO) 5.5 X10'3 (1.8-7.7); NEUTROPHILS % (AUTO) 81.5 % (42-75); PLATELET COUNT 219 X10'3 (140-440); RED BLOOD COUNT 3.56 X10'6 (4.70-6.10); RED CELL DISTRIBUTION WIDTH 31.2 % (11.5-14.5); WHITE BLOOD COUNT 6.7 X10'3 (4.5-11.0)
[2024-07-30 08:04] LABS: ALANINE AMINOTRANSFERASE 56 U/L (12-78); ALBUMIN/GLOBULIN RATIO 0.7 (1.1-1.5); ALKALINE PHOSPHATASE 189 IU/L (46-116); ANION GAP 13 (8-16); ASPARTATE AMINO TRANSFERASE 26 U/L (10-37); BILIRUBIN,TOTAL 0.8 MG/DL (0.1-1.0); BLOOD UREA NITROGEN 62 MG/DL (7-18); BUN/CREATININE RATIO 16.7 (10.0-20.0); CALCIUM 8.9 MG/DL (8.5-10.1); CHLORIDE 95 MMOL/L (99-107); CREATININE 3.72 MG/DL (0.60-1.10); GLUCOSE 141 MG/DL (70-104); MAGNESIUM 2.4 MG/DL (1.5-2.4); PHOSPHORUS 4.5 MG/DL (2.3-4.5); POTASSIUM 3.6 MMOL/L (3.5-5.1); PREALBUMIN 23.4 MG/DL (19-36); SODIUM 134 MMOL/L (135-145); TOTAL CARBON DIOXIDE 26.1 MMOL/L (24-32); TOTAL PROTEIN 7.3 G/DL (6.4-8.2); eCRCL 15 ML/MIN; eGFR 17 ML/MIN
[2024-07-31] VITALS (21 sets, daily range): BP systolic 113–155; BP diastolic 64–93; PULSE 65–102; RESP 14–24; TEMP 96.9–98.5; O2SAT 90–100
[2024-07-31] MEDS: diphenhydrAMINE 50 mg/ml inj IV ONE (04:19)
[2024-07-31] MEDS: heparin 1,000 units/ml 10ml inj HE ONE (07:48)
[2024-07-31 08:26] LABS: BASOPHILS # (AUTO) 0.1 X10'3 (0-0.2); EOSINOPHILS # (AUTO) 0.5 X10'3 (0-0.9); EOSINOPHILS % (AUTO) 8.2 % (0-6); HEMATOCRIT 27.2 % (42.0-52.0); HEMOGLOBIN 8.6 g/dl (14.0-17.9); LYMPHOCYTES # (AUTO) 0.7 X10'3 (1.1-4.8); LYMPHOCYTES % (AUTO) 10.3 % (21-51); MEAN CORPUSCULAR HEMOGLOBIN 24.8 PG (27.0-31.0); MEAN CORPUSCULAR HGB CONC 31.5 g/dL (33.0-36.5); MEAN CORPUSCULAR VOLUME 78.5 FL (78-98); MEAN PLATELET VOLUME 7.4 FL (7.4-10.4); MONOCYTES # (AUTO) 0.4 X10'3 (0-0.9); MONOCYTES % (AUTO) 6.4 % (2-12); NEUTROPHILS # (AUTO) 4.7 X10'3 (1.8-7.7); NEUTROPHILS % (AUTO) 74.1 % (42-75); PLATELET COUNT 239 X10'3 (140-440); RED BLOOD COUNT 3.47 X10'6 (4.70-6.10); RED CELL DISTRIBUTION WIDTH 31.5 % (11.5-14.5); WHITE BLOOD COUNT 6.3 X10'3 (4.5-11.0)
[2024-07-31 08:40] LABS: ALANINE AMINOTRANSFERASE 58 U/L (12-78); ALBUMIN 3.1 G/DL (3.4-5.0); ALBUMIN/GLOBULIN RATIO 0.8 (1.1-1.5); ALKALINE PHOSPHATASE 176 IU/L (46-116); ANION GAP 13 (8-16); ANISOCYTOSIS 3+; ASPARTATE AMINO TRANSFERASE 27 U/L (10-37); BILIRUBIN,TOTAL 0.7 MG/DL (0.1-1.0); BLOOD UREA NITROGEN 58 MG/DL (7-18); BUN/CREATININE RATIO 22.6 (10.0-20.0); CALCIUM 8.9 MG/DL (8.5-10.1); CHLORIDE 98 MMOL/L (99-107); CREATININE 2.57 MG/DL (0.60-1.10); GLUCOSE 98 MG/DL (70-104); HYPOCHROMASIA 1+; MICROCYTOSIS 1+; PLATELET ESTIMATE NORMAL; POTASSIUM 3.1 MMOL/L (3.5-5.1); SODIUM 137 MMOL/L (135-145); TOTAL CARBON DIOXIDE 26.4 MMOL/L (24-32); TOTAL PROTEIN 7.2 G/DL (6.4-8.2); eCRCL 22 ML/MIN; eGFR 26 ML/MIN
[2024-07-31 08:41] LABS: ELLIPTOCYTES FEW; STOMATOCYTES FEW
[2024-07-31] MEDS: prednisone 10mg tablet PO ONE (11:38)
[2024-07-31] MEDS: NUT.TX.IMP.RENAL FXN,LAC-REDUC (Nepro) 237 ML VANILLA PO SCH (14:10)
[2024-07-31] MEDS ORDERED: magnesium Cl slow-release 64mg tablet PO PRN (16:55)
[2024-07-31] MEDS ORDERED: potassium Cl 20 mEq SR tablet PO PRN (16:55)
[2024-07-31] MEDS: potassium Cl 20 mEq SR tablet PO PRN (17:16)
[2024-07-31] MEDS: diphenhydrAMINE 50 mg/ml inj IV PRN (22:12)
[2024-08-01 02:00] VITALS: BP 130/60; PULSE 91; RESP 23; TEMP 97.3; O2SAT 96
[2024-08-01] MEDS: LORazepam 2 mg/ml vial ONE (03:10)
[2024-08-01] MEDS: LORazepam 2 mg/ml vial IV ONE ×2 (03:15→22:12)
[2024-08-01] MEDS: linagliptin 5mg tablet PO SCH (09:30)
[2024-08-01] MEDS: LORazepam 2 mg/ml vial IV PRN (09:42)
[2024-08-01 10:29] LABS: BASOPHILS % (AUTO) 0 % (0-1); EOSINOPHILS # (AUTO) 0.7 X10'3 (0-0.9); EOSINOPHILS % (AUTO) 8.3 % (0-6); HEMATOCRIT 30.7 % (42.0-52.0); HEMOGLOBIN 9.6 g/dl (14.0-17.9); LYMPHOCYTES # (AUTO) 0.8 X10'3 (1.1-4.8); LYMPHOCYTES % (AUTO) 10.1 % (21-51); MEAN CORPUSCULAR HEMOGLOBIN 24.9 PG (27.0-31.0); MEAN CORPUSCULAR HGB CONC 31.2 g/dL (33.0-36.5); MEAN CORPUSCULAR VOLUME 79.9 FL (78-98); MEAN PLATELET VOLUME 7.6 FL (7.4-10.4); MONOCYTES # (AUTO) 0.7 X10'3 (0-0.9); MONOCYTES % (AUTO) 8.7 % (2-12); NEUTROPHILS # (AUTO) 5.7 X10'3 (1.8-7.7); NEUTROPHILS % (AUTO) 72.9 % (42-75); PLATELET COUNT 279 X10'3 (140-440); RED BLOOD COUNT 3.84 X10'6 (4.70-6.10); RED CELL DISTRIBUTION WIDTH 32.6 % (11.5-14.5); WHITE BLOOD COUNT 7.9 X10'3 (4.5-11.0)
[2024-08-01 10:43] LABS: ALBUMIN 3.1 G/DL (3.4-5.0); ANION GAP 11 (8-16); BLOOD UREA NITROGEN 51 MG/DL (7-18); CALCIUM 9.4 MG/DL (8.5-10.1); CHLORIDE 101 MMOL/L (99-107); CREATININE 2.55 MG/DL (0.60-1.10); GLUCOSE 97 MG/DL (70-104); MAGNESIUM 2.3 MG/DL (1.5-2.4); PHOSPHORUS 3.1 MG/DL (2.3-4.5); POTASSIUM 4.1 MMOL/L (3.5-5.1); SODIUM 137 MMOL/L (135-145); TOTAL CARBON DIOXIDE 24.6 MMOL/L (24-32); eCRCL 22 ML/MIN; eGFR 26 ML/MIN
[2024-08-01 12:16] LABS: ABG BASE EXCESS -0.9 mmol/L (-2.0-3.0); ABG HCO3 23.1 mmol/L (21.0-28.0); ABG OXYGEN SATURATION 92.7 % (94.0-98.0); ABG PCO2 (T) 34.3 mmHg (35.0-48.0); ABG PH (T) 7.442 (7.350-7.450); ABG PO2 (T) 61.5 mmHg (83.0-108.0); ALLEN'S TEST POSITIVE; FCOHb 0.5 % (0.5-1.5); FHHb 7.2 % (0.0-5.0); FLOW 3 L/min; FMetHb 0.3 % (0.0-1.5); MODE NASAL CANNULA; PATIENT TEMPERATURE 36.3
[2024-08-01 12:22] VITALS: PULSE 89; RESP 18; O2SAT 92
[2024-08-01 15:00] VITALS: BP 128/64; PULSE 85; RESP 20; TEMP 98.2; O2SAT 97
[2024-08-01 17:27] VITALS: O2SAT 97
[2024-08-01 20:00] VITALS: RESP 19; O2SAT 98
[2024-08-01 20:54] VITALS: PULSE 90; RESP 18; O2SAT 97
[2024-08-02] VITALS (7 sets, daily range): BP systolic 126–148; BP diastolic 74–107; PULSE 94–111; RESP 18–21; TEMP 97.3–98; O2SAT 82–100
[2024-08-02 04:17] LABS: BASOPHILS % (AUTO) 0.4 % (0-1); EOSINOPHILS # (AUTO) 0.9 X10'3 (0-0.9); EOSINOPHILS % (AUTO) 12.4 % (0-6); HEMATOCRIT 29.3 % (42.0-52.0); HEMOGLOBIN 9.3 g/dl (14.0-17.9); LYMPHOCYTES # (AUTO) 0.6 X10'3 (1.1-4.8); LYMPHOCYTES % (AUTO) 8.5 % (21-51); MEAN CORPUSCULAR HEMOGLOBIN 25.2 PG (27.0-31.0); MEAN CORPUSCULAR HGB CONC 31.6 g/dL (33.0-36.5); MEAN CORPUSCULAR VOLUME 79.8 FL (78-98); MEAN PLATELET VOLUME 7.5 FL (7.4-10.4); MONOCYTES # (AUTO) 0.7 X10'3 (0-0.9); MONOCYTES % (AUTO) 9.1 % (2-12); NEUTROPHILS % (AUTO) 69.6 % (42-75); PLATELET COUNT 298 X10'3 (140-440); RED BLOOD COUNT 3.67 X10'6 (4.70-6.10); RED CELL DISTRIBUTION WIDTH 32.3 % (11.5-14.5); WHITE BLOOD COUNT 7.1 X10'3 (4.5-11.0)
[2024-08-02 04:52] LABS: ANION GAP 15 (8-16); BLOOD UREA NITROGEN 53 MG/DL (7-18); BUN/CREATININE RATIO 22.7 (10.0-20.0); CALCIUM 9.5 MG/DL (8.5-10.1); CHLORIDE 101 MMOL/L (99-107); CREATININE 2.33 MG/DL (0.60-1.10); GLUCOSE 97 MG/DL (70-104); MAGNESIUM 2.3 MG/DL (1.5-2.4); POTASSIUM 4.3 MMOL/L (3.5-5.1); PREALBUMIN 23.7 MG/DL (19-36); SODIUM 136 MMOL/L (135-145); TOTAL CARBON DIOXIDE 20.4 MMOL/L (24-32); eCRCL 24 ML/MIN; eGFR 29 ML/MIN
[2024-08-02 11:27] LABS: HBSAG SCREEN Negative (Negative)
[2024-08-03 02:00] VITALS: BP 147/67; PULSE 85; RESP 14; TEMP 97.5; O2SAT 94
[2024-08-03 07:22] LABS: BASOPHILS % (AUTO) 0.6 % (0-1); EOSINOPHILS # (AUTO) 0.9 X10'3 (0-0.9); EOSINOPHILS % (AUTO) 11.8 % (0-6); HEMATOCRIT 29.9 % (42.0-52.0); HEMOGLOBIN 9.4 g/dl (14.0-17.9); LYMPHOCYTES # (AUTO) 0.8 X10'3 (1.1-4.8); LYMPHOCYTES % (AUTO) 10.3 % (21-51); MEAN CORPUSCULAR HEMOGLOBIN 25.2 PG (27.0-31.0); MEAN CORPUSCULAR HGB CONC 31.5 g/dL (33.0-36.5); MEAN PLATELET VOLUME 7.1 FL (7.4-10.4); MONOCYTES # (AUTO) 0.8 X10'3 (0-0.9); MONOCYTES % (AUTO) 9.5 % (2-12); NEUTROPHILS # (AUTO) 5.4 X10'3 (1.8-7.7); NEUTROPHILS % (AUTO) 67.8 % (42-75); PLATELET COUNT 326 X10'3 (140-440); RED BLOOD COUNT 3.73 X10'6 (4.70-6.10); RED CELL DISTRIBUTION WIDTH 32.7 % (11.5-14.5)
[2024-08-03 07:29] VITALS: PULSE 99; RESP 18; O2SAT 90
[2024-08-03 07:53] LABS: ALBUMIN 3.3 G/DL (3.4-5.0); ANION GAP 12 (8-16); BLOOD UREA NITROGEN 61 MG/DL (7-18); BUN/CREATININE RATIO 23.6 (10.0-20.0); CALCIUM 9.3 MG/DL (8.5-10.1); CHLORIDE 99 MMOL/L (99-107); CREATININE 2.59 MG/DL (0.60-1.10); GLUCOSE 101 MG/DL (70-104); MAGNESIUM 2.1 MG/DL (1.5-2.4); PHOSPHORUS 4.6 MG/DL (2.3-4.5); POTASSIUM 4.5 MMOL/L (3.5-5.1); SODIUM 136 MMOL/L (135-145); TOTAL CARBON DIOXIDE 24.8 MMOL/L (24-32); eCRCL 21 ML/MIN; eGFR 25 ML/MIN
[2024-08-03 07:59] LABS: ANISOCYTOSIS 3+; HYPOCHROMASIA 1+; PLATELET ESTIMATE NORMAL; POLYCHROMASIA FEW
[2024-08-03 08:00] VITALS: RESP 17
[2024-08-03 08:00] LABS: BURR CELLS FEW; TARGET CELLS FEW; TEAR DROP CELLS FEW
== END 2024-08-03 12:47 | DRG 870 ==
LOC: ER 11:45 → ED HOLD 16:07 → PCU 3S 22:55 → CICU 2S 07-07 02:32 → PCU 3S 07-19 23:00 → CICU 2S 07-20 10:51 → PCU 3S 07-26 18:22
PROVIDERS: ADMIT Internal Medicine; ATTEND Internal Medicine Critical Care Medicine
PROC: 5A0935A Assistance with Respiratory Ventilation, Less than 24 Consecutive Hours, High Flow/Velocity Cannula (ICD-10-PCS; 2024-07-06)
PROC: 5A1955Z Respiratory Ventilation, Greater than 96 Consecutive Hours (ICD-10-PCS; principal; 2024-07-07)
PROC: 5A09357 Assistance with Respiratory Ventilation, Less than 24 Consecutive Hours, Continuous Positive Airway Pressure (ICD-10-PCS; 2024-07-07)
PROC: 0BH17EZ Insertion of Endotracheal Airway into Trachea, Via Natural or Artificial Opening (ICD-10-PCS; 2024-07-07)
PROC: 0W9G3ZZ Drainage of Peritoneal Cavity, Percutaneous Approach (ICD-10-PCS; 2024-07-09)
PROC: 02HV33Z Insertion of Infusion Device into Superior Vena Cava, Percutaneous Approach (ICD-10-PCS; 2024-07-09)
PROC: B548ZZA Ultrasonography of Superior Vena Cava, Guidance (ICD-10-PCS; 2024-07-09)
PROC: 5A1D90Z Performance of Urinary Filtration, Continuous, Greater than 18 hours Per Day (ICD-10-PCS; 2024-07-12)
PROC: 5A1D90Z Performance of Urinary Filtration, Continuous, Greater than 18 hours Per Day (ICD-10-PCS; 2024-07-14)
PROC: 5A1D90Z Performance of Urinary Filtration, Continuous, Greater than 18 hours Per Day (ICD-10-PCS; 2024-07-15)
PROC: 5A1D70Z Performance of Urinary Filtration, Intermittent, Less than 6 Hours Per Day (ICD-10-PCS; 2024-07-15)
PROC: 02HV33Z Insertion of Infusion Device into Superior Vena Cava, Percutaneous Approach (ICD-10-PCS; 2024-07-16)
PROC: B548ZZA Ultrasonography of Superior Vena Cava, Guidance (ICD-10-PCS; 2024-07-16)
PROC: 5A1D90Z Performance of Urinary Filtration, Continuous, Greater than 18 hours Per Day (ICD-10-PCS; 2024-07-16)
PROC: 5A1D70Z Performance of Urinary Filtration, Intermittent, Less than 6 Hours Per Day (ICD-10-PCS; 2024-07-17)
PROC: 5A1D70Z Performance of Urinary Filtration, Intermittent, Less than 6 Hours Per Day (ICD-10-PCS; 2024-07-18)
PROC: 5A1D70Z Performance of Urinary Filtration, Intermittent, Less than 6 Hours Per Day (ICD-10-PCS; 2024-07-19)
PROC: 02HV33Z Insertion of Infusion Device into Superior Vena Cava, Percutaneous Approach (ICD-10-PCS; 2024-07-20)
PROC: B548ZZA Ultrasonography of Superior Vena Cava, Guidance (ICD-10-PCS; 2024-07-20)
PROC: 0BH17EZ Insertion of Endotracheal Airway into Trachea, Via Natural or Artificial Opening (ICD-10-PCS; 2024-07-20)
PROC: 5A1945Z Respiratory Ventilation, 24-96 Consecutive Hours (ICD-10-PCS; 2024-07-20)
PROC: 5A1D70Z Performance of Urinary Filtration, Intermittent, Less than 6 Hours Per Day (ICD-10-PCS; 2024-07-20)
PROC: 5A1D70Z Performance of Urinary Filtration, Intermittent, Less than 6 Hours Per Day (ICD-10-PCS; 2024-07-22)
PROC: 5A09357 Assistance with Respiratory Ventilation, Less than 24 Consecutive Hours, Continuous Positive Airway Pressure (ICD-10-PCS; 2024-07-23)
PROC: 5A0945A Assistance with Respiratory Ventilation, 24-96 Consecutive Hours, High Flow/Velocity Cannula (ICD-10-PCS; 2024-07-24)
PROC: 5A1D70Z Performance of Urinary Filtration, Intermittent, Less than 6 Hours Per Day (ICD-10-PCS; 2024-07-24)
PROC: B548ZZA Ultrasonography of Superior Vena Cava, Guidance (ICD-10-PCS; 2024-07-26)
PROC: 0JH63XZ Insertion of Tunneled Vascular Access Device into Chest Subcutaneous Tissue and Fascia, Percutaneous Approach (ICD-10-PCS; 2024-07-26)
PROC: 02HV33Z Insertion of Infusion Device into Superior Vena Cava, Percutaneous Approach (ICD-10-PCS; 2024-07-26)
PROC: B5181ZA Fluoroscopy of Superior Vena Cava using Low Osmolar Contrast, Guidance (ICD-10-PCS; 2024-07-26)
PROC: 5A0945A Assistance with Respiratory Ventilation, 24-96 Consecutive Hours, High Flow/Velocity Cannula (ICD-10-PCS; 2024-07-26)
PROC: 5A1D70Z Performance of Urinary Filtration, Intermittent, Less than 6 Hours Per Day (ICD-10-PCS; 2024-07-26)
PROC: 5A1D70Z Performance of Urinary Filtration, Intermittent, Less than 6 Hours Per Day (ICD-10-PCS; 2024-07-28)
PROC: 5A0935A Assistance with Respiratory Ventilation, Less than 24 Consecutive Hours, High Flow/Velocity Cannula (ICD-10-PCS; 2024-07-29)
PROC: 5A1D70Z Performance of Urinary Filtration, Intermittent, Less than 6 Hours Per Day (ICD-10-PCS; 2024-07-31)
DX: A41.9 Sepsis, unspecified organism (principal); G92.8 Other toxic encephalopathy; J18.9 Pneumonia, unspecified organism; J80 Acute respiratory distress syndrome; N17.0 Acute kidney failure with tubular necrosis; R65.21 Severe sepsis with septic shock; K72.00 Acute and subacute hepatic failure without coma; N18.6 End stage renal disease; B17.9 Acute viral hepatitis, unspecified; R18.8 Other ascites; I13.2 Hypertensive heart and chronic kidney disease with heart failure and with stage 5 chronic kidney disease, or end stage renal disease; R74.01 Elevation of levels of liver transaminase levels; K74.69 Other cirrhosis of liver; K76.82 Hepatic encephalopathy; J43.9 Emphysema, unspecified; I50.9 Heart failure, unspecified; E87.6 Hypokalemia; E11.65 Type 2 diabetes mellitus with hyperglycemia; D50.9 Iron deficiency anemia, unspecified; I27.29 Other secondary pulmonary hypertension; I07.1 Rheumatic tricuspid insufficiency; D63.8 Anemia in other chronic diseases classified elsewhere; Z88.1 Allergy status to other antibiotic agents
CPT/HCPCS: 36415; 36558; 36600; 71045; 71250; 74176; 75827; 76700; 76937; 77001; 80048; 80053; 80069; 80076; 80202; 80305; 81003; 82103; 82140; 82150; 82330; 82570; 82728; 82803; 82945; 82948; 83036; 83540; 83550; 83605; 83615; 83735; 83880; 83930; 83935; 83986; 84100; 84132; 84134; 84145; 84157; 84300; 84443; 84466; 84478; 84484; 85007; 85008; 85018; 85025; 85027; 85379; 85610; 85730; 86038; 86704; 86803; 87040; 87070; 87075; 87077; 87081; 87102; 87186; 87207; 87340; 87522; 89051; 92508; 92616; 93005; 93306; 93925; 93970; 94002; 94003; 94640; 94660; 94668; 94760; 96365; 96367; 96375; 97110; 97116; 97161; 97530; 97535; 99285; A4333; A4615; A4620; A4628; A6196; A6212; A6213; A6234; A6250; A6258; A6449; A6590; A7015; A9900; C1751; C1752; C1758; E1594; G0257; G0378; J0456; J0610; J0696; J1200; J1644; J1815; J1940; J1956; J2003; J2060; J2150; J2250; J2405; J2470; J2543; J2704; J2919; J2997; J3010; J3372; J3475; J3480; J3490; J7030; J7040; J7050; J7512; P9045; P9047; Q0163; Q4081; Q9967

== ENCOUNTER 2024-11-27 14:28 | Inpatient (IN) | payer BC ==
[~2024-11-27] VITALS: Ht 327.7 cm; Wt 94.5 kg
[~2024-11-27 14:28] MED LIST: FURO20TA4 PO; LOSA100T58 PO
[2024-11-27 15:12] LABS: ALANINE AMINOTRANSFERASE 166 U/L (12-78); ALBUMIN 2.8 G/DL (3.4-5.0); ALBUMIN/GLOBULIN RATIO 0.6 (1.1-1.5); ALKALINE PHOSPHATASE 194 IU/L (46-116); ANION GAP 7 (8-16); ASPARTATE AMINO TRANSFERASE 55 U/L (10-37); BILIRUBIN,TOTAL 2.5 MG/DL (0.1-1.0); BLOOD UREA NITROGEN 15 MG/DL (7-18); BUN/CREATININE RATIO 10.9 (10.0-20.0); CALCIUM 8.3 MG/DL (8.5-10.1); CHLORIDE 104 MMOL/L (99-107); CREATININE 1.38 MG/DL (0.60-1.10); GLUCOSE 110 MG/DL (70-104); POTASSIUM 3.6 MMOL/L (3.5-5.1); SODIUM 141 MMOL/L (135-145); TOTAL CARBON DIOXIDE 29.9 MMOL/L (24-32); TOTAL PROTEIN 7.6 G/DL (6.4-8.2); eCRCL 57 ML/MIN; eGFR 53 ML/MIN
[2024-11-27 15:19] LABS: PRO BRAIN NATRIURETIC PEPTIDE 5069 PG/ML (0-125)
[2024-11-27 15:29] LABS: BASOPHILS # (AUTO) 0.1 X10'3 (0-0.2); BASOPHILS % (AUTO) 1.3 % (0-1); EOSINOPHILS # (AUTO) 0.1 X10'3 (0-0.9); EOSINOPHILS % (AUTO) 1.5 % (0-6); LYMPHOCYTES # (AUTO) 1.1 X10'3 (1.1-4.8); MEAN PLATELET VOLUME 7.7 FL (7.4-10.4); MONOCYTES # (AUTO) 0.9 X10'3 (0-0.9); MONOCYTES % (AUTO) 10.7 % (2-12); NEUTROPHILS # (AUTO) 5.9 X10'3 (1.8-7.7); NEUTROPHILS % (AUTO) 72.5 % (42-75); PLATELET COUNT 362 X10'3 (140-440); WHITE BLOOD COUNT 8.1 X10'3 (4.5-11.0)
[2024-11-27 15:31] LABS: HEMOGLOBIN 11.3 g/dl (14.0-17.9); RED BLOOD COUNT 5.02 X10'6 (4.70-6.10)
[2024-11-27 15:32] LABS: MEAN CORPUSCULAR HEMOGLOBIN 22.5 PG (27.0-31.0); MEAN CORPUSCULAR HGB CONC 31.4 g/dL (33.0-36.5); MEAN CORPUSCULAR VOLUME 71.8 FL (78-98); RED CELL DISTRIBUTION WIDTH 17.8 % (11.5-14.5)
[2024-11-27 15:58] LABS: NUCLEATED RED BLOOD CELLS 1 /100WBC (0-0); TOTAL CELLS COUNTED 100
[2024-11-27 15:59] LABS: ANISOCYTOSIS 2+; PLATELET ESTIMATE NORMAL
[2024-11-27 16:00] LABS: HYPOCHROMASIA 1+; MICROCYTOSIS 1+
[2024-11-27 16:01] LABS: BURR CELLS FEW; ELLIPTOCYTES FEW
[2024-11-27 17:03] LABS: INR 1.3 INR; PROTHROMBIN TIME 13.4 SECONDS (9.0-12.0)
[2024-11-27 17:45] LABS: LDH,BODY FLUID 90 U/L
[2024-11-27 18:03] LABS: BFAPPEAR HAZY; BFSOURCE PERITONEAL FLD
[2024-11-27 18:04] LABS: BF RBC COUNT 666 /CU MM; BF WBC COUNT 155 /CU MM (0-1000); BFCOLOR YELLOW; BFVOLUME 20 ML; LYMPHOCYTES,BODY FLUID 46 %; NEUTROPHILS,BODY FLUID 40 %
[2024-11-27 18:05] LABS: MONOCYTES,BODY FLUID 14 %
[2024-11-27 18:15] LABS: TOTAL PROTEIN,BODY FLUID 3.1 G/DL
[2024-11-27] MEDS ORDERED: iohexol 350MG/ML 100ml bottle IV ONE (19:13)
[2024-11-27] MEDS ORDERED: morphine 2 MG/ML inj. syringe IV PRN (20:50)
[2024-11-27] MEDS ORDERED: potassium Cl 40MEQ/1/2NS 520ml 520 ML IV PRN (20:50)
[2024-11-27] MEDS ORDERED: acetaminophen 325mg tablet PO PRN (20:50)
[2024-11-27] MEDS ORDERED: potassium Cl 20 mEq SR tablet PO PRN ×2 (20:50)
[2024-11-27] MEDS ORDERED: ondansetron/PF 4mg/2ml inj IV PRN (20:50)
[2024-11-27] MEDS ORDERED: magnesium hydroxide 30ml (MOM) UD suspension PO PRN (20:50)
[2024-11-27] MEDS ORDERED: magnesium sulf-water 2g/50mL 50 ML IV PRN (20:50)
[2024-11-27] MEDS ORDERED: magnesium Cl slow-release 64mg tablet PO PRN (20:50)
[2024-11-27] MEDS ORDERED: mag hydrox/Alum hydrox/simeth 30ml oral suspension PO PRN (20:50)
[2024-11-27] MEDS ORDERED: magnesium sulf-water 4G/100mL 100 ML IV PRN (20:50)
[2024-11-27] MEDS: PERFLUTREN PROTEIN-A MICROSPHR (Optison) 0.22 MG/ML 3ML VIAL IV ONE (21:26)
[2024-11-27] MEDS: furosemide 40mg/4ml inj IV ONE (21:32)
[2024-11-27 22:06] LABS: HEMOGLOBIN A1C 6.6 % (4.5-6.2)
[2024-11-27 22:25] LABS: BILIRUBIN,DIRECT 0.9 MG/DL (0-0.3); PHOSPHORUS 3.6 MG/DL (2.3-4.5); THYROID STIMULATING HORMONE 1.38 ulU/ml (0.34-4.50)
[2024-11-27 22:33] LABS: HIV ANTIBODY 1&2 RAPID NON-REACTIVE (Neg)
[2024-11-27 22:57] LABS: BILIRUBIN,URINE SMALL (Neg); CLARITY,URINE CLEAR (Clear); COLOR,URINE YELLOW (Yellow); GLUCOSE, URINE NEGATIVE (Neg); KETONES,URINE NEGATIVE (Neg); LEUKOCYTE ESTERASE ,URINE NEGATIVE (Neg); NITRITES, URINE NEGATIVE (Neg); OCCULT BLOOD,URINE NEGATIVE (Neg); PH,URINE 5.5 (4.8-8.0); PROTEIN,URINE TRACE mg/dl (Neg)
[2024-11-27 23:08] LABS: UA COLLECTION TYPE CLN CATCH MIDSTREAM
[2024-11-27 23:09] LABS: BACTERIA,URINE FEW /HPF (Neg); MUCUS STRANDS FEW /LPF (Neg); RBC,URINE NONE SEEN /HPF (0-2); SQUAMOUS EPITHELIAL CELL,UR FEW /LPF (FEW); WBC,URINE 0-4 /HPF (0-4)
[2024-11-27 23:35] LABS: URINE AMPHETAMINE SCREEN POSITIVE (Neg); URINE BARBITUATE SCREEN NEGATIVE (Neg); URINE BENZODIAZEPINES SCREEN NEGATIVE (Neg); URINE CANNABINOID SCREEN POSITIVE (Neg); URINE COCAINE SCREEN NEGATIVE (Neg); URINE METHADONE SCREEN NEGATIVE (Neg); URINE OPIATE SCREEN NEGATIVE (Neg); URINE PHENCYCLIDINE SCREEN NEGATIVE (Neg)
[2024-11-28] VITALS (13 sets, daily range): BP systolic 104–138; BP diastolic 61–84; PULSE 71–80; RESP 14–26; TEMP 98.3–99.1; O2SAT 90–99
[2024-11-28] MEDS: piperacillin/tazo 3.375gm/50ml 50 ML IV SCH ×2 (00:19→10:02)
[2024-11-28] MEDS ORDERED: magnesium hydroxide 30ml (MOM) UD suspension PO PRN (03:00)
[2024-11-28] MEDS ORDERED: morphine 2 MG/ML inj. syringe IV PRN (03:00)
[2024-11-28] MEDS ORDERED: acetaminophen 325mg tablet PO PRN (03:00)
[2024-11-28] MEDS ORDERED: ondansetron/PF 4mg/2ml inj IV PRN (03:00)
[2024-11-28] MEDS: normal saline 1000ml 1,000 ML IV SCH (03:26)
[2024-11-28 03:43] LABS: ALANINE AMINOTRANSFERASE 132 U/L (12-78); ALBUMIN 2.5 G/DL (3.4-5.0); ALBUMIN/GLOBULIN RATIO 0.5 (1.1-1.5); ALKALINE PHOSPHATASE 175 IU/L (46-116); ANION GAP 9 (8-16); ASPARTATE AMINO TRANSFERASE 36 U/L (10-37); BILIRUBIN,TOTAL 1.7 MG/DL (0.1-1.0); BLOOD UREA NITROGEN 18 MG/DL (7-18); BUN/CREATININE RATIO 12.2 (10.0-20.0); CALCIUM 7.9 MG/DL (8.5-10.1); CHLORIDE 104 MMOL/L (99-107); CHOL/HDL RATIO 3.1 (0.00-4.99); CHOLESTEROL 56 MG/DL (0-200); CREATININE 1.47 MG/DL (0.60-1.10); GLUCOSE 98 MG/DL (70-104); HDL CHOLESTEROL 18 MG/DL (35-60); LDL CHOLESTEROL 34 MG/DL (50-100); MAGNESIUM 1.9 MG/DL (1.5-2.4); POTASSIUM 3.7 MMOL/L (3.5-5.1); SODIUM 142 MMOL/L (135-145); TOTAL CARBON DIOXIDE 28.6 MMOL/L (24-32); TOTAL PROTEIN 7.1 G/DL (6.4-8.2); TRIGLYCERIDES 50 MG/DL (20-135); eCRCL 53 ML/MIN; eGFR 49 ML/MIN
[2024-11-28 04:39] LABS: RED BLOOD COUNT 4.59 X10'6 (4.70-6.10); WHITE BLOOD COUNT 6.6 X10'3 (4.5-11.0)
[2024-11-28 04:40] LABS: BASOPHILS # (AUTO) 0.1 X10'3 (0-0.2); BASOPHILS % (AUTO) 1.3 % (0-1); EOSINOPHILS # (AUTO) 0.1 X10'3 (0-0.9); HEMATOCRIT 32.8 % (42.0-52.0); HEMOGLOBIN 10.1 g/dl (14.0-17.9); LYMPHOCYTES # (AUTO) 0.9 X10'3 (1.1-4.8); LYMPHOCYTES % (AUTO) 13.7 % (21-51); MEAN CORPUSCULAR HEMOGLOBIN 22.1 PG (27.0-31.0); MEAN CORPUSCULAR HGB CONC 30.9 g/dL (33.0-36.5); MEAN CORPUSCULAR VOLUME 71.5 FL (78-98); MEAN PLATELET VOLUME 7.8 FL (7.4-10.4); MONOCYTES # (AUTO) 0.7 X10'3 (0-0.9); MONOCYTES % (AUTO) 10.5 % (2-12); NEUTROPHILS # (AUTO) 4.8 X10'3 (1.8-7.7); NEUTROPHILS % (AUTO) 72.5 % (42-75); PLATELET COUNT 332 X10'3 (140-440); RED CELL DISTRIBUTION WIDTH 17.9 % (11.5-14.5)
[2024-11-28] MEDS: furosemide 20 MG/2 ML vial IV SCH (07:07)
[2024-11-28] MEDS: pantoprazole 40mg Tablet.DR PO SCH (07:09)
[2024-11-28] MEDS: heparin, porcine 5000 units/ml vial SQ SCH (07:19)
[2024-11-28] MEDS: K and/or MAG REPLACEMENT MC SCH (08:00)
[2024-11-28] MEDS: azithromycin/NS 500mg/250ml 250 ML IV SCH (08:16)
[2024-11-28 10:24] LABS: ABG BASE EXCESS 0.9 mmol/L (-2.0-3.0); ABG OXYGEN SATURATION 90.2 % (94.0-98.0); ABG PCO2 (T) 43.8 mmHg (35.0-48.0); ABG PH (T) 7.392 (7.350-7.450); ABG PO2 (T) 62.9 mmHg (83.0-108.0); ALLEN'S TEST POSITIVE; FCOHb 0.2 % (0.5-1.5); FHHb 9.8 % (0.0-5.0); FLOW 9 L/min; FMetHb 0.3 % (0.0-1.5); FO2Hb 89.7 % (94.0-98.0); MODE HIGH FLOW; TOTAL HEMOGLOBIN 10.8 G/dl (13.5-17.5)
[2024-11-28] MEDS: docusate sod 100mg capsule PO SCH (19:59)
[2024-11-29] VITALS (16 sets, daily range): BP systolic 109–150; BP diastolic 55–78; PULSE 54–85; RESP 13–23; TEMP 97.6–98.5; O2SAT 11–100
[2024-11-29] MEDS: morphine 2 MG/ML inj. syringe IV PRN (03:32)
[2024-11-29 07:35] LABS: BASOPHILS # (AUTO) 0.1 X10'3 (0-0.2); BASOPHILS % (AUTO) 0.9 % (0-1); EOSINOPHILS # (AUTO) 0.2 X10'3 (0-0.9); EOSINOPHILS % (AUTO) 2.7 % (0-6); HEMATOCRIT 31.8 % (42.0-52.0); HEMOGLOBIN 9.6 g/dl (14.0-17.9); LYMPHOCYTES # (AUTO) 0.8 X10'3 (1.1-4.8); LYMPHOCYTES % (AUTO) 10.9 % (21-51); MEAN CORPUSCULAR HEMOGLOBIN 22.3 PG (27.0-31.0); MEAN CORPUSCULAR HGB CONC 30.3 g/dL (33.0-36.5); MEAN CORPUSCULAR VOLUME 73.7 FL (78-98); MEAN PLATELET VOLUME 7.6 FL (7.4-10.4); MONOCYTES # (AUTO) 0.8 X10'3 (0-0.9); NEUTROPHILS # (AUTO) 5.7 X10'3 (1.8-7.7); NEUTROPHILS % (AUTO) 74.5 % (42-75); PLATELET COUNT 295 X10'3 (140-440); RED BLOOD COUNT 4.31 X10'6 (4.70-6.10); RED CELL DISTRIBUTION WIDTH 18.3 % (11.5-14.5); WHITE BLOOD COUNT 7.7 X10'3 (4.5-11.0)
[2024-11-29] MEDS ORDERED: CefTRIAXone 2gm/D5W 50ml BAG 50 ML IV SCH (08:00)
[2024-11-29 08:04] LABS: ALANINE AMINOTRANSFERASE 92 U/L (12-78); ALBUMIN 2.4 G/DL (3.4-5.0); ALBUMIN/GLOBULIN RATIO 0.5 (1.1-1.5); ALKALINE PHOSPHATASE 150 IU/L (46-116); ANION GAP 5 (8-16); ASPARTATE AMINO TRANSFERASE 23 U/L (10-37); BILIRUBIN,TOTAL 1.1 MG/DL (0.1-1.0); BLOOD UREA NITROGEN 19 MG/DL (7-18); BUN/CREATININE RATIO 13.2 (10.0-20.0); CALCIUM 7.7 MG/DL (8.5-10.1); CHLORIDE 103 MMOL/L (99-107); CREATININE 1.44 MG/DL (0.60-1.10); GLUCOSE 127 MG/DL (70-104); MAGNESIUM 1.8 MG/DL (1.5-2.4); POTASSIUM 3.6 MMOL/L (3.5-5.1); SODIUM 141 MMOL/L (135-145); TOTAL CARBON DIOXIDE 33.2 MMOL/L (24-32); eCRCL 73 ML/MIN; eGFR 50 ML/MIN
[2024-11-29] MEDS ORDERED: iohexol 300mg/ml 100ml inj. ONE (13:54)
[2024-11-29] MEDS ORDERED: ATOR40TA71 PO (17:04)
[2024-11-29] MEDS ORDERED: ATOR40TA72 PO (17:04)
[2024-11-29] MEDS ORDERED: AMLO5TAB16 PO (17:04)
[2024-11-29] MEDS ORDERED: POTA-208 PO (17:04)
[2024-11-29] MEDS ORDERED: ATEN-27 PO (17:10)
[2024-11-29] MEDS: Melatonin 3mg tablet PO ONE (21:51)
[2024-11-30] VITALS (13 sets, daily range): BP systolic 118–135; BP diastolic 44–65; PULSE 78–142; RESP 16–26; TEMP 97.7–98.9; O2SAT 91–98
[2024-11-30 06:27] LABS: BASOPHILS # (AUTO) 0.1 X10'3 (0-0.2); BASOPHILS % (AUTO) 0.9 % (0-1); EOSINOPHILS # (AUTO) 0.3 X10'3 (0-0.9); HEMATOCRIT 29.2 % (42.0-52.0); HEMOGLOBIN 8.9 g/dl (14.0-17.9); LYMPHOCYTES # (AUTO) 0.8 X10'3 (1.1-4.8); LYMPHOCYTES % (AUTO) 10.3 % (21-51); MEAN CORPUSCULAR HEMOGLOBIN 22.2 PG (27.0-31.0); MEAN CORPUSCULAR HGB CONC 30.7 g/dL (33.0-36.5); MEAN CORPUSCULAR VOLUME 72.4 FL (78-98); MEAN PLATELET VOLUME 7.6 FL (7.4-10.4); MONOCYTES # (AUTO) 0.8 X10'3 (0-0.9); MONOCYTES % (AUTO) 10.8 % (2-12); NEUTROPHILS # (AUTO) 5.6 X10'3 (1.8-7.7); PLATELET COUNT 292 X10'3 (140-440); RED BLOOD COUNT 4.03 X10'6 (4.70-6.10); RED CELL DISTRIBUTION WIDTH 18.1 % (11.5-14.5); WHITE BLOOD COUNT 7.6 X10'3 (4.5-11.0)
[2024-11-30 06:44] LABS: ALANINE AMINOTRANSFERASE 75 U/L (12-78); ALBUMIN 2.4 G/DL (3.4-5.0); ALBUMIN/GLOBULIN RATIO 0.5 (1.1-1.5); ALKALINE PHOSPHATASE 138 IU/L (46-116); ANION GAP 2 (8-16); ASPARTATE AMINO TRANSFERASE 21 U/L (10-37); BILIRUBIN,TOTAL 0.9 MG/DL (0.1-1.0); BLOOD UREA NITROGEN 15 MG/DL (7-18); BUN/CREATININE RATIO 11.3 (10.0-20.0); CALCIUM 7.6 MG/DL (8.5-10.1); CHLORIDE 101 MMOL/L (99-107); CREATININE 1.33 MG/DL (0.60-1.10); GLUCOSE 130 MG/DL (70-104); MAGNESIUM 1.7 MG/DL (1.5-2.4); POTASSIUM 3.5 MMOL/L (3.5-5.1); SODIUM 139 MMOL/L (135-145); TOTAL CARBON DIOXIDE 35.9 MMOL/L (24-32); TOTAL PROTEIN 6.9 G/DL (6.4-8.2); eCRCL 79 ML/MIN; eGFR 55 ML/MIN
[2024-11-30] MEDS: furosemide 40mg/4ml inj IV SCH (07:41)
[2024-11-30] MEDS: Melatonin 3mg tablet PO ONE (21:21)
[2024-12-01] VITALS (8 sets, daily range): BP systolic 109–143; BP diastolic 57–65; PULSE 70–97; RESP 16–19; TEMP 97.2–97.7; O2SAT 90–98
[2024-12-01 06:26] LABS: BASOPHILS # (AUTO) 0.1 X10'3 (0-0.2); EOSINOPHILS # (AUTO) 0.4 X10'3 (0-0.9); EOSINOPHILS % (AUTO) 6.3 % (0-6); HEMATOCRIT 28.4 % (42.0-52.0); HEMOGLOBIN 8.7 g/dl (14.0-17.9); LYMPHOCYTES # (AUTO) 0.7 X10'3 (1.1-4.8); LYMPHOCYTES % (AUTO) 10.5 % (21-51); MEAN CORPUSCULAR HEMOGLOBIN 22.1 PG (27.0-31.0); MEAN CORPUSCULAR HGB CONC 30.7 g/dL (33.0-36.5); MEAN CORPUSCULAR VOLUME 71.9 FL (78-98); MEAN PLATELET VOLUME 7.6 FL (7.4-10.4); MONOCYTES # (AUTO) 0.8 X10'3 (0-0.9); MONOCYTES % (AUTO) 11.3 % (2-12); NEUTROPHILS % (AUTO) 70.9 % (42-75); PLATELET COUNT 285 X10'3 (140-440); RED BLOOD COUNT 3.94 X10'6 (4.70-6.10); RED CELL DISTRIBUTION WIDTH 18.3 % (11.5-14.5); WHITE BLOOD COUNT 7.1 X10'3 (4.5-11.0)
[2024-12-01 06:44] LABS: ALANINE AMINOTRANSFERASE 60 U/L (12-78); ALBUMIN 2.3 G/DL (3.4-5.0); ALBUMIN/GLOBULIN RATIO 0.5 (1.1-1.5); ALKALINE PHOSPHATASE 121 IU/L (46-116); ANION GAP 2 (8-16); ASPARTATE AMINO TRANSFERASE 21 U/L (10-37); BILIRUBIN,TOTAL 0.8 MG/DL (0.1-1.0); BLOOD UREA NITROGEN 18 MG/DL (7-18); BUN/CREATININE RATIO 14.6 (10.0-20.0); CALCIUM 7.8 MG/DL (8.5-10.1); CHLORIDE 98 MMOL/L (99-107); CREATININE 1.23 MG/DL (0.60-1.10); GLUCOSE 122 MG/DL (70-104); MAGNESIUM 1.5 MG/DL (1.5-2.4); POTASSIUM 3.4 MMOL/L (3.5-5.1); SODIUM 139 MMOL/L (135-145); TOTAL CARBON DIOXIDE 39.4 MMOL/L (24-32); TOTAL PROTEIN 6.9 G/DL (6.4-8.2); eCRCL 85 ML/MIN; eGFR 60 ML/MIN
[2024-12-01] MEDS ORDERED: magnesium Cl slow-release 64mg tablet PO PRN (10:35)
[2024-12-01] MEDS ORDERED: potassium Cl 40MEQ/1/2NS 520ml 520 ML IV PRN (10:35)
[2024-12-01] MEDS ORDERED: magnesium sulf-water 4G/100mL 100 ML IV PRN (10:35)
[2024-12-01] MEDS ORDERED: magnesium sulf-water 2g/50mL 50 ML IV PRN (10:35)
[2024-12-01] MEDS ORDERED: potassium Cl 20 mEq SR tablet PO PRN (10:35)
[2024-12-01] MEDS: potassium Cl 20 mEq SR tablet PO PRN (11:04)
[2024-12-01] MEDS ORDERED: FURO20TA4 PO (11:40)
[2024-12-01] MEDS ORDERED: AMLO5TAB16 PO (11:40)
== END 2024-12-01 14:30 | disposition home or self-care (01) | DRG 291 ==
LOC: ER 14:29 → ED HOLD 19:55 → UNDOADMIN 19:55 → ED HOLD 11-28 03:05 → UNDOADMIN 11-28 03:05 → PCU 3S 11-28 18:30
PROVIDERS: ADMIT Internal Medicine Pulmonary Disease; ATTEND Internal Medicine
PROC: B32T1ZZ Computerized Tomography (CT Scan) of Left Pulmonary Artery using Low Osmolar Contrast (ICD-10-PCS; 2024-11-27)
PROC: B3201ZZ Computerized Tomography (CT Scan) of Thoracic Aorta using Low Osmolar Contrast (ICD-10-PCS; 2024-11-27)
PROC: B32S1ZZ Computerized Tomography (CT Scan) of Right Pulmonary Artery using Low Osmolar Contrast (ICD-10-PCS; 2024-11-27)
PROC: 0W9G3ZZ Drainage of Peritoneal Cavity, Percutaneous Approach (ICD-10-PCS; 2024-11-27)
PROC: 5A0935A Assistance with Respiratory Ventilation, Less than 24 Consecutive Hours, High Flow/Velocity Cannula (ICD-10-PCS; 2024-11-28)
PROC: BW251ZZ Computerized Tomography (CT Scan) of Chest, Abdomen and Pelvis using Low Osmolar Contrast (ICD-10-PCS; principal; 2024-11-29)
PROC: 5A0935A Assistance with Respiratory Ventilation, Less than 24 Consecutive Hours, High Flow/Velocity Cannula (ICD-10-PCS; 2024-11-29)
DX: I13.2 Hypertensive heart and chronic kidney disease with heart failure and with stage 5 chronic kidney disease, or end stage renal disease (principal); I50.33 Acute on chronic diastolic (congestive) heart failure; J18.9 Pneumonia, unspecified organism; J96.01 Acute respiratory failure with hypoxia; N18.6 End stage renal disease; R18.8 Other ascites; K52.9 Noninfective gastroenteritis and colitis, unspecified; E80.6 Other disorders of bilirubin metabolism; D50.9 Iron deficiency anemia, unspecified; F15.90 Other stimulant use, unspecified, uncomplicated; F12.90 Cannabis use, unspecified, uncomplicated; Z79.899 Other long term (current) drug therapy; Z88.1 Allergy status to other antibiotic agents; Z82.49 Family history of ischemic heart disease and other diseases of the circulatory system
CPT/HCPCS: 36415; 36600; 49083; 71045; 71260; 71275; 74174; 74177; 76705; 80053; 80061; 80305; 81001; 82248; 82803; 82948; 82977; 83010; 83036; 83605; 83615; 83735; 83880; 84100; 84145; 84157; 84443; 84484; 85007; 85018; 85025; 85610; 85651; 86255; 86703; 87081; 89051; 93005; 93306; 94760; 96374; 97116; 97162; 97530; 99285; A4615; A6446; A6449; A6590; G0378; J0456; J1644; J1940; J2270; J2543; J7030; J7040; Q9967

== ENCOUNTER 2024-12-03 13:09 | Inpatient (IN) | payer BC ==
[~2024-12-03] VITALS: Ht 175.3 cm; Wt 77.3 kg
[~2024-12-03 13:09] MED LIST changes: +AMLO5TAB16 PO; +ATEN-27 PO; +ATOR40TA71 PO; +POTA-208 PO
[2024-12-03 14:24] LABS: BASOPHILS # (AUTO) 0.1 X10'3 (0-0.2); BASOPHILS % (AUTO) 1.5 % (0-1); EOSINOPHILS # (AUTO) 0.3 X10'3 (0-0.9); EOSINOPHILS % (AUTO) 4.9 % (0-6); HEMOGLOBIN 9.3 g/dl (14.0-17.9); LYMPHOCYTES # (AUTO) 0.8 X10'3 (1.1-4.8); LYMPHOCYTES % (AUTO) 14.5 % (21-51); MEAN PLATELET VOLUME 7.8 FL (7.4-10.4); MONOCYTES # (AUTO) 0.6 X10'3 (0-0.9); NEUTROPHILS % (AUTO) 68.1 % (42-75); PLATELET COUNT 279 X10'3 (140-440); RED BLOOD COUNT 4.29 X10'6 (4.70-6.10); RED CELL DISTRIBUTION WIDTH 18.3 % (11.5-14.5); WHITE BLOOD COUNT 5.8 X10'3 (4.5-11.0)
[2024-12-03 14:35] LABS: ALANINE AMINOTRANSFERASE 57 U/L (12-78); ALBUMIN 2.7 G/DL (3.4-5.0); ALBUMIN/GLOBULIN RATIO 0.5 (1.1-1.5); ALKALINE PHOSPHATASE 147 IU/L (46-116); ANION GAP 5 (8-16); ASPARTATE AMINO TRANSFERASE 42 U/L (10-37); BILIRUBIN,TOTAL 0.7 MG/DL (0.1-1.0); BLOOD UREA NITROGEN 26 MG/DL (7-18); BUN/CREATININE RATIO 20.8 (10.0-20.0); CALCIUM 8.1 MG/DL (8.5-10.1); CHLORIDE 104 MMOL/L (99-107); CREATININE 1.25 MG/DL (0.60-1.10); GLUCOSE 104 MG/DL (70-104); POTASSIUM 3.6 MMOL/L (3.5-5.1); SODIUM 144 MMOL/L (135-145); TOTAL CARBON DIOXIDE 35.2 MMOL/L (24-32); TOTAL PROTEIN 7.7 G/DL (6.4-8.2); eCRCL 63 ML/MIN; eGFR 59 ML/MIN
[2024-12-03 14:40] LABS: HEMATOCRIT 29.8 % (42.0-52.0); MEAN CORPUSCULAR HEMOGLOBIN 22.4 PG (27.0-31.0); MEAN CORPUSCULAR HGB CONC 31.6 g/dL (33.0-36.5)
[2024-12-03 14:46] LABS: PRO BRAIN NATRIURETIC PEPTIDE 6302 PG/ML (0-125)
[2024-12-03 15:40] VITALS: BP 125/95; PULSE 122; RESP 20; TEMP 98.4; O2SAT 94
[2024-12-03] MEDS: metoprolol tartrate 1mg/ml inj IV ONE ×2 (15:52→17:40)
[2024-12-03] MEDS: furosemide 10 MG/1 ML 10ml inj IV ONE (15:54)
[2024-12-03] MEDS ORDERED: ondansetron/PF 4mg/2ml inj IV PRN (17:05)
[2024-12-03] MEDS ORDERED: magnesium hydroxide 30ml (MOM) UD suspension PO PRN (17:05)
[2024-12-03] MEDS ORDERED: acetaminophen 325mg tablet PO PRN ×2 (17:05)
[2024-12-03] MEDS ORDERED: potassium Cl 40MEQ/1/2NS 520ml 520 ML IV PRN (17:05)
[2024-12-03] MEDS ORDERED: potassium Cl 20 mEq SR tablet PO PRN ×2 (17:05)
[2024-12-03] MEDS ORDERED: magnesium sulf-water 4G/100mL 100 ML IV PRN (17:05)
[2024-12-03] MEDS ORDERED: mag hydrox/Alum hydrox/simeth 30ml oral suspension PO PRN (17:05)
[2024-12-03] MEDS ORDERED: magnesium Cl slow-release 64mg tablet PO PRN (17:05)
[2024-12-03] MEDS ORDERED: magnesium sulf-water 2g/50mL 50 ML IV PRN (17:05)
[2024-12-03 17:34] LABS: INR 1.1 INR
[2024-12-03 18:00] VITALS: RESP 20; O2SAT 94
[2024-12-03 18:06] LABS: D-DIMER 2.47 MG/L FEU (0-0.50)
[2024-12-03 18:59] VITALS: PULSE 80
[2024-12-03] MEDS: heparin, porcine 5000 units/ml vial SQ SCH (19:29)
[2024-12-03] MEDS: atenolol 25mg tablet PO SCH (19:30)
[2024-12-03 19:40] LABS: BILIRUBIN,URINE NEGATIVE (Neg); CLARITY,URINE CLEAR (Clear); COLOR,URINE YELLOW (Yellow); GLUCOSE, URINE NEGATIVE (Neg); KETONES,URINE NEGATIVE (Neg); LEUKOCYTE ESTERASE ,URINE NEGATIVE (Neg); NITRITES, URINE NEGATIVE (Neg); OCCULT BLOOD,URINE NEGATIVE (Neg); PH,URINE 7.5 (4.8-8.0); PROTEIN,URINE NEGATIVE (Neg); UROBILINOGEN,URINE 0.2 E.U/dL (0.2-1.0)
[2024-12-03] MEDS ORDERED: metoprolol tartrate 1mg/ml inj IV PRN (19:40)
[2024-12-03 19:49] LABS: UA COLLECTION TYPE URINAL
[2024-12-03 19:59] LABS: URINE AMPHETAMINE SCREEN NEGATIVE (Neg); URINE BARBITUATE SCREEN NEGATIVE (Neg); URINE BENZODIAZEPINES SCREEN NEGATIVE (Neg); URINE CANNABINOID SCREEN NEGATIVE (Neg); URINE COCAINE SCREEN NEGATIVE (Neg); URINE METHADONE SCREEN NEGATIVE (Neg); URINE OPIATE SCREEN NEGATIVE (Neg); URINE PHENCYCLIDINE SCREEN NEGATIVE (Neg)
[2024-12-03] MEDS: K and/or MAG REPLACEMENT MC SCH (20:00)
[2024-12-03] MEDS: Melatonin 3mg tablet PO SCH (22:05)
[2024-12-03 22:55] VITALS: BP 99/50; PULSE 81; RESP 11; O2SAT 96
[2024-12-03 23:09] VITALS: TEMP 97.1
[2024-12-04] VITALS (10 sets, daily range): BP systolic 94–124; BP diastolic 51–65; PULSE 69–77; RESP 16–24; TEMP 97.2–97.9; O2SAT 94–100
[2024-12-04 06:45] LABS: BASOPHILS # (AUTO) 0.1 X10'3 (0-0.2); BASOPHILS % (AUTO) 1.5 % (0-1); EOSINOPHILS # (AUTO) 0.4 X10'3 (0-0.9); EOSINOPHILS % (AUTO) 5.9 % (0-6); HEMATOCRIT 30.3 % (42.0-52.0); HEMOGLOBIN 9.3 g/dl (14.0-17.9); LYMPHOCYTES % (AUTO) 15.4 % (21-51); MEAN CORPUSCULAR HEMOGLOBIN 22.1 PG (27.0-31.0); MEAN CORPUSCULAR HGB CONC 30.8 g/dL (33.0-36.5); MEAN CORPUSCULAR VOLUME 71.7 FL (78-98); MEAN PLATELET VOLUME 7.8 FL (7.4-10.4); MONOCYTES # (AUTO) 0.7 X10'3 (0-0.9); MONOCYTES % (AUTO) 10.7 % (2-12); NEUTROPHILS # (AUTO) 4.3 X10'3 (1.8-7.7); NEUTROPHILS % (AUTO) 66.5 % (42-75); PLATELET COUNT 273 X10'3 (140-440); RED BLOOD COUNT 4.22 X10'6 (4.70-6.10); WHITE BLOOD COUNT 6.4 X10'3 (4.5-11.0)
[2024-12-04 07:15] LABS: ALANINE AMINOTRANSFERASE 55 U/L (12-78); ALBUMIN 2.7 G/DL (3.4-5.0); ALBUMIN/GLOBULIN RATIO 0.6 (1.1-1.5); ALKALINE PHOSPHATASE 146 IU/L (46-116); ANION GAP 5 (8-16); ASPARTATE AMINO TRANSFERASE 44 U/L (10-37); BILIRUBIN,TOTAL 0.9 MG/DL (0.1-1.0); BLOOD UREA NITROGEN 27 MG/DL (7-18); BUN/CREATININE RATIO 20.9 (10.0-20.0); CALCIUM 8.3 MG/DL (8.5-10.1); CHLORIDE 100 MMOL/L (99-107); CREATININE 1.29 MG/DL (0.60-1.10); GLUCOSE 107 MG/DL (70-104); MAGNESIUM 1.7 MG/DL (1.5-2.4); POTASSIUM 4.1 MMOL/L (3.5-5.1); SODIUM 140 MMOL/L (135-145); TOTAL CARBON DIOXIDE 34.6 MMOL/L (24-32); TOTAL PROTEIN 7.6 G/DL (6.4-8.2); eCRCL 61 ML/MIN; eGFR 57 ML/MIN
[2024-12-04] MEDS: furosemide 40mg/4ml inj IV SCH (08:00)
[2024-12-04] MEDS: amLODIPine 5mg tablet PO SCH (08:00)
[2024-12-04] MEDS: losartan 50mg tablet PO SCH (08:00)
[2024-12-04] MEDS: atorvastatin 20mg tablet PO SCH (08:20)
[2024-12-04] MEDS: furosemide 20 MG/2 ML vial IV ONE (08:20)
[2024-12-05 02:00] VITALS: BP 105/62; PULSE 75; RESP 22; TEMP 97; O2SAT 96
[2024-12-05 06:00] VITALS: BP 108/62; PULSE 69; RESP 19; TEMP 97.8; O2SAT 96
[2024-12-05 06:47] LABS: BASOPHILS # (AUTO) 0.1 X10'3 (0-0.2); BASOPHILS % (AUTO) 1.3 % (0-1); EOSINOPHILS # (AUTO) 0.4 X10'3 (0-0.9); EOSINOPHILS % (AUTO) 6.1 % (0-6); HEMATOCRIT 28.9 % (42.0-52.0); HEMOGLOBIN 8.8 g/dl (14.0-17.9); LYMPHOCYTES # (AUTO) 1.1 X10'3 (1.1-4.8); LYMPHOCYTES % (AUTO) 16.5 % (21-51); MEAN CORPUSCULAR HEMOGLOBIN 21.8 PG (27.0-31.0); MEAN CORPUSCULAR HGB CONC 30.5 g/dL (33.0-36.5); MEAN CORPUSCULAR VOLUME 71.5 FL (78-98); MEAN PLATELET VOLUME 7.9 FL (7.4-10.4); MONOCYTES # (AUTO) 0.7 X10'3 (0-0.9); MONOCYTES % (AUTO) 10.6 % (2-12); NEUTROPHILS # (AUTO) 4.3 X10'3 (1.8-7.7); NEUTROPHILS % (AUTO) 65.5 % (42-75); PLATELET COUNT 276 X10'3 (140-440); RED BLOOD COUNT 4.04 X10'6 (4.70-6.10); RED CELL DISTRIBUTION WIDTH 18.3 % (11.5-14.5); WHITE BLOOD COUNT 6.6 X10'3 (4.5-11.0)
[2024-12-05 07:31] LABS: ALANINE AMINOTRANSFERASE 45 U/L (12-78); ALBUMIN 2.7 G/DL (3.4-5.0); ALBUMIN/GLOBULIN RATIO 0.6 (1.1-1.5); ALKALINE PHOSPHATASE 148 IU/L (46-116); ANION GAP 4 (8-16); ASPARTATE AMINO TRANSFERASE 34 U/L (10-37); BILIRUBIN,TOTAL 0.8 MG/DL (0.1-1.0); BLOOD UREA NITROGEN 33 MG/DL (7-18); CALCIUM 8.7 MG/DL (8.5-10.1); CHLORIDE 101 MMOL/L (99-107); CREATININE 1.18 MG/DL (0.60-1.10); GLUCOSE 110 MG/DL (70-104); MAGNESIUM 1.9 MG/DL (1.5-2.4); PHOSPHORUS 4.2 MG/DL (2.3-4.5); POTASSIUM 4.1 MMOL/L (3.5-5.1); SODIUM 139 MMOL/L (135-145); TOTAL CARBON DIOXIDE 34.1 MMOL/L (24-32); TOTAL PROTEIN 7.6 G/DL (6.4-8.2); eCRCL 67 ML/MIN; eGFR 63 ML/MIN
[2024-12-05 08:00] VITALS: RESP 19; O2SAT 93
[2024-12-05 11:00] VITALS: BP 120/67; PULSE 75; RESP 20; TEMP 97.6; O2SAT 93
[2024-12-05 13:48] VITALS: O2SAT 94
== END 2024-12-05 13:50 | disposition home or self-care (01) | DRG 291 ==
LOC: ER 13:10 → ED HOLD 15:30 → PCU 3S 16:30
PROVIDERS: ADMIT Family Medicine; ATTEND Family Medicine
DX: I13.0 Hypertensive heart and chronic kidney disease with heart failure and stage 1 through stage 4 chronic kidney disease, or unspecified chronic kidney disease (principal); I50.33 Acute on chronic diastolic (congestive) heart failure; N18.30 Chronic kidney disease, stage 3 unspecified; F15.10 Other stimulant abuse, uncomplicated; F41.9 Anxiety disorder, unspecified; Z88.1 Allergy status to other antibiotic agents; Z79.899 Other long term (current) drug therapy
CPT/HCPCS: 36415; 71045; 80053; 80305; 81003; 83735; 83880; 84100; 84484; 85025; 85379; 85610; 87081; 93005; 93970; 99285; A4615; A6449; G0378; J1644; J1940; J3490